=== PATIENT | female | born 1960 | race Caucasian/White ===

== ENCOUNTER 2020-03-07 20:56 | Emergency (ER) | payer BC ==
[~2020-03-07] VITALS: Ht 165.1 cm; Wt 92.5 kg
[2020-03-07 21:28] VITALS: BP_SYST 136; BP_SYST 148; BP_DIAS 78
--- NOTE | 2020-03-07 21:58 | ER.PDOC ---
General Chief Complaint: Lower Back Pain or Injury Stated Complaint: POSS APPENDICITIS Time seen by MD: 22:27 Source: patient Exam Limitations: no limitations History of Present Illness Initial Comments Right lower abdominal pain for 4 days. Pain is 5/10, sharp without nausea or vomiting. CT abdomen/pelvis was done by her PCP today which is equivocal for a ppendicitis, patient was told to come to the ED. Severity/Quality: moderate Radiation: back Associated Symptoms: denies symptoms Exacerbated by: nothing Relieved By: nothing Allergies: Coded Allergies: No Known Drug Allergies (Unverified Allergy, Unknown, 11/28/18) Home Meds Reported Medications Gabapentin (GABAPENTIN) 300 Mg Capsule, 1 CAP PO HS, #90 CAP 5 Refills 11/28/18 Gabapentin (GABAPENTIN) 100 Mg Capsule, 1 CAP PO HS, #90 CAP 2 Refills 11/28/18 Olmesartan/Hydrochlorothiazide (BENICAR HCT 20-12.5 MG TABLET) 1 Each Tablet, 1 TAB PO DAILY, #30 TAB 5 Refills 11/28/18 Dulaglutide (Trulicity) 0.75 Mg/0.5 Ml Pen.injctr, 0.75 MG SQ Q7D 11/28/18 Vital Signs First Vital Signs Date Time Temp Pulse Resp B/P (MAP) Pulse Ox O2 Delivery O2 Flow Rate FiO2 03/07/20 21:28 97.8 99 16 98 03/07/20 21:28 148/78 (101) Room Air Last Vital Signs Date Time Temp Pulse Resp B/P (MAP) Pulse Ox O2 Delivery O2 Flow Rate FiO2 03/07/20 21:28 97.8 99 16 148/78 (101) 98 Room Air Past Medical History Medical History: diabetes, hypertension Surgical History: back, knee Social History Alcohol Use: none Drug Use: none Constitutional: no symptoms reported Respiratory: no symptoms reported Cardiovascular: no symptoms reported Gastrointestinal: see HPI Genitourinary: no symptoms reported Musculoskeletal: no symptoms reported Skin: no symptoms reported All Other Systems: Reviewed and Negative Physical Exam General Appearance: No Apparent Distress, WD/WN Neck: Non-Tender, Full Range of Motion, Supple, Normal Inspection Respiratory: chest non-tender, lungs clear, normal breath sounds, no respiratory distress, no accessory muscle use Cardiovascular: Normal Peripheral Pulses, Regular Rate, Rhythm, No Edema, No Gallop, No JVD, No Murmur Gastrointestinal: Normal Bowel Sounds, No Organomegaly, No Pulsatile Mass, Tenderness (RLQ), McBurneys point tender Back: Normal Inspection, No CVA Tenderness, No Vertebral Tenderness Extremities: Normal Range of Motion, Non-Tender, Normal Inspection, No Pedal Edema, No Calf Tenderness, Normal Capillary Refill, Pelvis Stable Neurologic/Psychiatric: order builder loader II-XII NML as Tested, No Motor/Sensory Deficits, Alert, Normal Mood/Affect, Oriented x 3 Skin: Normal Color, Warm/Dry Lymphatic: No Adenopathy Results/Orders Results/Orders Orders - DANYELL GOYAL MD Cbc With Auto Diff (03/07/20 21:56) Comprehensive Metabolic Panel (03/07/20 21:56) PT (03/07/20 21:56) Partial Thromboplastin Time. (03/07/20 21:56) Ekg-Routine (03/07/20 21:56) Piperacillin Sodium/Tazobactam (Zosyn 3. (03/07/20 21:56) Blood Culture (03/07/20 21:58) 0.9 % Sodium Chloride (Ns 100ml) (03/07/20 22:07) Vital Signs Date Time Temp Pulse Resp B/P (MAP) Pulse Ox O2 Delivery O2 Flow Rate FiO2 03/07/20 21:28 97.8 99 16 148/78 (101) 98 Room Air 03/07/20 21:28 97.8 99 16 03/07/20 21:28 97.8 99 16 98 Administered Medications Medications (Trade) Dose Ordered Sig/Stas Route PRN Reason Start Time Stop Time Status Last Admin Dose Admin Piperacillin Sod/ Tazobactam Sod 3.375 gm/Sodium Chloride 100 ml @ 100 mls/hr STAT STAT IV 03/07/20 21:56 03/07/20 22:55 UNV 03/07/20 22:20 100 MLS/HR Progress Progress CT abdomen/pelvis: No renal or ureteral stone or obstructive uropathy. 2. Equivocal findings for acute appendicitis. Clinical correlation is recommended. 3. Colonic diverticulosis without acute diverticulitis. 4. Diffuse pancreatic fatty replacement. Dr. Nunes is out of town so patient transferred to [facility]. Her is taking her to [facility]. Departure Time of Disposition: 22:30 Disposition: 02 XFER SHT-TRM HOSP Impression: Primary Impression: Appendicitis Condition: Stable Referrals: MICHEAL RIOS MD (PCP) PRIMARY CARE PROVIDER Comments Transfer to [facility] for Dr. Mcgee the Surgeon application integration specialist as a direct admit. Duration or Time Spent with Pa: 30 min Problem Qualifiers Primary Impression: Appendicitis Appendicitis type: acute appendicitis Acute appendicitis type: unspecified acute appendicitis type Qualified Codes: K35.80 - Unspecified acute appendicitis JAY JAY,DANYELL Brown MD Mar 07, 2020 21:58
[2020-03-07] MEDS ORDERED: NS 100ML 100 ML IV ONE (22:07)
[2020-03-07] MEDS: ZOSYN 3.375 GM 3.375 GM in NS 100ML 100 ML IV STA (22:20)
[2020-03-07 22:23] LABS: BASOPHIL % 0.6 % (0.0-0.2); EOSINOPHIL # 0.1 10^3/uL (0.0-0.2); EOSINOPHIL % 1.9 % (0.0-5.0); LYMPHOCYTES # 1.57 10^3/uL1 (1.0-4.8); LYMPHOCYTES % 23.5 % (24.0-44.0); MEAN CORP HGB 29.8 pg (26-34); MONOCYTES # 0.6 10^3/uL (0.3-0.8); MONOCYTES % 8.8 % (5.0-12.0); NEUTROPHIL # 4.4 10^3/uL (1.8-7.7); NEUTROPHILS % 65.1 % (41.0-85.0); PLATELET COUNT 356 10^3/uL (150-400); RED CELL DISTRIBUTION WIDTH 13.1 % (11.5-14.5)
[2020-03-07 22:31] VITALS: BP 143/75
--- NOTE | 2020-03-07 22:35 | NUR ---
TRANSFER PATIENT AMBULATED WITH SPOUSE FROM ED, WILL BE GOING POV. PATIENT COA X4, VITALS STABLE UPON DISCHARGE
--- NOTE | 2020-03-07 22:40 | NUR ---
REPORT TO [facility] REPORT GIVEN TO ALO SINGH
[2020-03-07 22:41] LABS: CALCIUM 9.1 mg/dL (8.4-10.5); CARBON DIOXIDE 26.2 mmol/L (20.0-32)
== END 2020-03-07 22:35 | disposition short-term general hospital (02) ==
LOC: ER 20:56
DX: K35.80 Unspecified acute appendicitis (principal); E11.9 Type 2 diabetes mellitus without complications; I10 Essential (primary) hypertension; Z79.899 Other long term (current) drug therapy
CPT/HCPCS: 36415; 80053; 85025; 85610; 85730; 87040 ×2; 93005; 96374; 99285; J2543; J7050 ×2

== ENCOUNTER → 2020-03-07 | Outpatient (CLI) | payer BC ==
[~2020-03-07] MED LIST: DULA0.75 SQ; GABA100C7 PO; GABA300C10 PO; OLME1TAB21 PO
--- NOTE | 2020-03-07 12:49 | DIREP ---
PROCEDURE:CT ABD/PELVIS WITHOUT CONTRAST TECHNIQUE:No oral contrast was given. Axial cuts were obtained through the abdomen and pelvis without IV contrast. The images were viewed at lung and soft tissue settings. Sagittal and coronal reconstructions are provided. COMPARISON:US, US ABDOMEN LIMITED(SINGLE ORGAN-QUAD), 11/07/2018, 08:48 AM. INDICATIONS:DYSURIA, CALCULUS OF KIDNEY, RLQ PAIN FINDINGS: LOWER CHEST:No infiltrate or pleural effusion. LIVER:Normal. BILIARY:Cholecystectomy. No biliary duct dilatation. PANCREAS:Diffuse fatty replacement. SPLEEN:Normal. URINARY TRACT:No renal or ureteral stone, obstruction or perinephric inflammation. Minimally distended urinary bladder. ADRENALS:Normal. AORTA/VASCULAR:Aortoiliac calcification without dilatation. RETROPERITONEUM:Normal. BOWEL/MESENTERY:Mildly dilated fluid-filled appendix, 0.9 cm without appendicoliths or periappendiceal inflammatory stranding. Distal colonic diverticula. No bowel obstruction, inflammatory stranding, free fluid or air. ABDOMINAL WALL:Normal. PELVIS:Normal. BONES:L3-S1 posterior fusion. OTHER:Normal. CONCLUSION: 1. No renal or ureteral stone or obstructive uropathy. 2. Equivocal findings for acute appendicitis. Clinical correlation is recommended. 3. Colonic diverticulosis without acute diverticulitis. 4. Diffuse pancreatic fatty replacement. Dictated by: Sabrina Aldana MD on 03/07/2020 at 12:42 PM
== END | disposition home or self-care (01) ==
LOC: RAD 10:21
PROVIDERS: ATTEND Internal Medicine
DX: N20.2 Calculus of kidney with calculus of ureter (principal); R30.0 Dysuria; R10.31 Right lower quadrant pain
CPT/HCPCS: 74176

== ENCOUNTER 2020-06-03 09:15 | Emergency (ER) | payer BC ==
[~2020-06-03] VITALS: Ht 165.1 cm; Wt 90.7 kg
[2020-06-03] MEDS ORDERED: NS 1000ML 1,000 ML ONE (09:19)
--- NOTE | 2020-06-03 09:20 | ER.PDOC ---
General Chief Complaint: Requesting Medical Care Stated Complaint: NAUSEA, PAIN Time seen by MD: 09:13 Source: patient, EMS Exam Limitations: no limitations History of Present Illness Initial Comments Patient reports being diagnosed COVID19+ 05/26. She has had persistent diarrhea since that time, but has taken no OTC medications for relief. She continues to eat whatever is at home. She also c/o dyspnea on exertion. Her is at [facility] on a ventilator for COVID19 pneumonia. She has been using [facility] at [facility] at 3-4 L. She states without it, her saturations drop to 79% with any exertion. Severity/Quality: moderate Associated Symptoms (diarrhea): copious Allergies: Coded Allergies: No Known Drug Allergies (Verified Allergy, Unknown, 06/03/20) Home Meds Reported Medications Gabapentin (NEURONTIN) 300 Mg Capsule, 600 MG PO BID, CAPSULE 06/03/20 Olmesartan/Hydrochlorothiazide (BENICAR HCT 20-12.5 MG TABLET) 1 Each Tablet, 1 TAB PO DAILY, #30 TAB 5 Refills 11/28/18 Dulaglutide (Trulicity) 0.75 Mg/0.5 Ml Pen.injctr, 0.75 MG SQ Q7D 11/28/18 Discontinued Reported Medications Gabapentin (GABAPENTIN) 300 Mg Capsule, 1 CAP PO HS, #90 CAP 5 Refills 11/28/18 Gabapentin (GABAPENTIN) 100 Mg Capsule, 1 CAP PO HS, #90 CAP 2 Refills 11/28/18 Vital Signs First Vital Signs Date Time Temp Pulse Resp B/P (MAP) Pulse Ox O2 Delivery O2 Flow Rate FiO2 06/03/20 09:31 99.0 78 22 141/71 (94) 93 Nasal Canula 4.00 Last Vital Signs Date Time Temp Pulse Resp B/P (MAP) Pulse Ox O2 Delivery O2 Flow Rate FiO2 06/03/20 13:17 78 18 122/71 (88) 96 Nasal Canula 4.00 06/03/20 09:36 99.0 Past Medical History Medical History: diabetes, hypertension Surgical History: appendectomy, cholecystectomy LMP (females 10-50): postmenopause Family History Significant Family History: no pertinent family hx Social History Smoking: non-smoker Alcohol Use: none Drug Use: none Constitutional: malaise EENTM: no symptoms reported Respiratory: shortness of breath, SOB with exertion Cardiovascular: no symptoms reported Gastrointestinal: diarrhea Genitourinary: no symptoms reported Musculoskeletal: no symptoms reported Skin: no symptoms reported Psychiatric/Neurological: no symptoms reported Endocrine: no symptoms reported All Other Systems: Reviewed and Negative Physical Exam General Appearance: No Apparent Distress, WD/WN HEENT: PERRL/EOMI Neck: Non-Tender, Full Range of Motion, Supple Respiratory: lungs clear, normal breath sounds, no respiratory distress, no accessory muscle use Cardiovascular: Regular Rate, Rhythm, No Murmur Gastrointestinal: Non Tender, Hypoactive bowel sounds, Soft Extremities: Non-Tender, Normal Inspection, No Pedal Edema, No Calf Tenderness Neurologic/Psychiatric: Alert, Normal Mood/Affect, Oriented x 3 Skin: Normal Color, Warm/Dry Results/Orders Results/Orders Orders - PAGE AVALOS DO 0.9 % Sodium Chloride (Ns 1000ml) (06/03/20 09:19) Cbc With Auto Diff (06/03/20 09:22) Comprehensive Metabolic Panel (06/03/20 09:22) Amylase (06/03/20 09:22) Lipase (06/03/20 09:22) Clostridium Difficile Panel (06/03/20 09:22) Stool Culture(Ml) (06/03/20 09:22) Saline Lock (06/03/20 09:22) 0.9 % Sodium Chloride (Ns 1000ml) (06/03/20 09:22) Diphenoxylate Hcl/Atropine (Lomotil) (06/03/20 09:22) Dexamethasone Sodium Phosphate (Decadron (06/03/20 09:22) Lactic Acid(Ml) (06/03/20 09:22) Blood Culture (06/03/20 09:22) D-Dimer (06/03/20 09:22) Enoxaparin Sodium (Lovenox) (06/03/20 09:50) Cta Chest (06/03/20 09:50) Enoxaparin Sodium (Lovenox) (06/03/20 09:53) Arterial Blood Gas (06/03/20 09:40) Ceftriaxone Sodium (Rocephin) (06/03/20 12:39) 0.9 % Sodium Chloride (Ns 100ml) (06/03/20 12:45) Ceftriaxone Sodium (Rocephin) (06/03/20 12:46) Vital Signs Date Time Temp Pulse Resp B/P (MAP) Pulse Ox O2 Delivery O2 Flow Rate FiO2 06/03/20 13:17 78 18 122/71 (88) 96 Nasal Canula 4.00 06/03/20 12:23 82 20 141/54 (83) 95 Nasal Canula 4.00 06/03/20 10:23 79 20 134/69 (90) 98 Nasal Canula 4.00 06/03/20 09:36 99.0 80 22 97 06/03/20 09:36 99.0 80 22 06/03/20 09:31 99.0 78 22 141/71 (94) 93 Nasal Canula 4.00 Administered Medications Medications (Trade) Dose Ordered Sig/Stas Route PRN Reason Start Time Stop Time Status Last Admin Dose Admin Ceftriaxone Sodium 1000 mg/ Sodium Chloride 100 ml @ 100 mls/hr STAT STAT IV 06/03/20 12:39 06/03/20 13:38 DC 06/03/20 12:50 100 MLS/HR Diphenoxylate HCl/ Atropine (Lomotil) 2 each STAT STAT PO 06/03/20 09:22 06/03/20 09:23 UNV 06/03/20 09:30 2 EACH Enoxaparin Sodium (Lovenox) 90 mg STAT STAT SQ 06/03/20 09:50 06/03/20 09:53 DC 06/03/20 10:01 90 MG Sodium Chloride 1,000 ml @ 1,200 mls/hr Q50M STAT IV 06/03/20 09:22 06/03/20 10:11 UNV 06/03/20 09:30 1,200 MLS/HR Laboratory Tests Test 06/03/20 09:22 06/03/20 09:25 Blood Gas Sample Site RB Blood pH 7.435 (7.350-7.450) Blood Gas PCO2 39.7 mmHg (35.0-45.0) Blood Gas PO2 94.4 mmHg (80.0-100.0) Blood Gas HCO3 26.1 mmol/L (22.0-26.0) H Blood Gas Base Excess 1.8 mmol/L (-2.0-2.0) Virgil Test N/A Arterial Blood Oxygen Saturation 97.3 % (94.0-97.00) H Deoxyhemoglobin 2.7 % (0.0-5.0) Carboxyhemoglobin 0.2 % (0.0-3.9) Methemoglobin 0.3 % (0.00-5.0) Total Hemoglobin 14.2 % (12.0-17.8) Total Oxygen Concentration 19.4 % (13.5-17.5) H Blood Gas Temperature 37 Oxygen Delivery Method 6 L/M FiO2 42 % (20-101) Total Carbon Dioxide 27.3 mmol/L (23-27) H White Blood Count 6.2 10^3/uL (4.5-11.0) Red Blood Count 5.08 10^6/uL (4.00-5.20) Hemoglobin 15.1 g/dL (12.0-15.0) H Hematocrit 44.0 % (36.0-46.0) Mean Corpuscular Volume 86.6 fL (78-100) Mean Corpuscular Hemoglobin 29.7 pg (26-34) Mean Corpuscular Hemoglobin Concent 34.3 g/dL (33-36.5) Red Cell Distribution Width 13.4 % (11.5-14.5) Platelet Count 275 10^3/uL (150-400) Mean Platelet Volume 8.9 fL (7.8-11.0) Neutrophils (%) (Auto) 80.5 % (41.0-85.0) Lymphocytes (%) (Auto) 8.6 % (24.0-44.0) L Monocytes (%) (Auto) 8.9 % (5.0-12.0) Neutrophils # (Auto) 5.0 10^3/uL (1.8-7.7) Lymphocytes # (Auto) 0.53 10^3/uL1 (1.0-4.8) L Monocytes # (Auto) 0.6 10^3/uL (0.3-0.8) Absolute Immature Granulocyte (auto 0.11 10^3 u/L (0-2) Absolute Eosinophils (auto) 0.0 10^3/uL (0.0-0.2) Immature Granulocytes % 1.80 % (0.00-0.50) H Eosinophils % 0.0 % (0.0-5.0) Basophils % 0.2 % (0.0-0.2) Basophils # 0.0 10^3/uL (0.0-0.1) D-Dimer 0.68 mg/L (0.19-0.49) *H Sodium Level 140 mmol/L (132-145) Potassium Level 3.6 mmol/L (3.6-5.2) Chloride Level 100.0 mmol/L (96-109) Carbon Dioxide Level 27.6 mmol/L (20.0-32) Anion Gap 16.0 Blood Urea Nitrogen 20 mg/dL (7-18) H Creatinine 1.08 mg/dL (0.59-1.40) Estimated GFR () 62.8 (>/=60) Est GFR (CKD-EPI)(Non-Afr [place]) 51.9 (>/=60) BUN/Creatinine Ratio 18.0 Glucose Level 152 mg/dL (70-110) H Lactic Acid Level 1.7 mmol/L (0.5-1.9) Calcium Level 9.6 mg/dL (8.4-10.5) Total Bilirubin 0.5 mg/dL (0.2-1.0) Aspartate Amino Transferase (AST) 70 U/L (0-35) H Alanine Aminotransferase (ALT) 70 U/L (12-78) Alkaline Phosphatase 79 U/L (50-136) Total Protein 8.0 g/dL (6.4-8.2) Albumin 3.3 g/dL (3.4-5.0) L Globulin 4.7 Albumin/Globulin Ratio 0.702 Amylase Level 61 U/L (25-115) Lipase 182 U/L (114-286) Progress Progress ABGs WNL. Chemistry and CBC WNL. Lactic acid WNL. Oxygen saturation here will not maintain >90% at rest without NC oxygen at 4L. EKG/XRAY/CT/US CT Comments: diffuse bilateral pneumonia c/w COVID19 ER DEPART Departure Time of Disposition: 13:41 Disposition: 01 HOME, SELF-CARE Impression: Primary Impression: 2019 novel coronavirus disease (COVID-19) Additional Impressions: Pneumonia Diarrhea Condition: Improved Patient Instructions: Viral Syndrome Additional Instructions: Continue using oxygen at home: 4-6 liters per nasal canula (the minimum amount required to maintain oxygen saturation >90%). Take antibiotics and steroids as prescribed until all gone. Take Lomotil as prescribed only when needed for diarrhea. Maintain a strictly clear liquid diet for 24 hours (anything you can hold up to a light and see through)--no fruit juice, no caffeine. Gradually advance diet as tolerated after that--bland!! You and your entire household need to sequester at home for 10 days from the onset of symptoms. Return to ER if you experience any difficulty breathing or swallowing, or for any emergent concerns. Alternate Tylenol and Motrin per package instructions every 4 hours as needed for fever or body aches including headache. Follow up with your doctor next week for reevaluation. Duration or Time Spent with Pa: 25 min Problem Qualifiers Additional Impressions: Pneumonia Pneumonia type: due to unspecified organism Laterality: bilateral Lung location: unspecified part of lung Qualified Codes: J18.9 - Pneumonia, unspecified organism Diarrhea Diarrhea type: unspecified type Qualified Codes: R19.7 - Diarrhea, unspecified PAGE AVALOS DO Jun 03, 2020 09:20
[2020-06-03] MEDS ORDERED: LOMOTIL PO STA (09:22)
[2020-06-03] MEDS ORDERED: NS 1000ML 1,000 ML IV STA (09:22)
[2020-06-03] MEDS ORDERED: DECADRON IV STA (09:22)
[2020-06-03] MEDS ORDERED: DECADRON ONE (09:29)
[2020-06-03 09:31] VITALS: BP 141/71
[2020-06-03 09:34] LABS: BASOPHIL % 0.2 % (0.0-0.2); LYMPHOCYTES # 0.53 10^3/uL1 (1.0-4.8); LYMPHOCYTES % 8.6 % (24.0-44.0); MEAN CORP HGB 29.7 pg (26-34); MONOCYTES # 0.6 10^3/uL (0.3-0.8); MONOCYTES % 8.9 % (5.0-12.0); NEUTROPHILS % 80.5 % (41.0-85.0); PLATELET COUNT 275 10^3/uL (150-400); RED CELL DISTRIBUTION WIDTH 13.4 % (11.5-14.5)
[2020-06-03 09:36] VITALS: BP 141/71
[2020-06-03 09:49] LABS: CALCIUM 9.6 mg/dL (8.4-10.5); CARBON DIOXIDE 27.6 mmol/L (20.0-32)
[2020-06-03] MEDS ORDERED: GABA300C PO (09:50)
[2020-06-03] MEDS ORDERED: LOVENOX SQ STA (09:50)
--- NOTE | 2020-06-03 09:51 | NUR ---
D-DIMER 0.68. REPORTED TO DR. CAMARA.
[2020-06-03] MEDS ORDERED: LOVENOX SQ ONE (09:53)
[2020-06-03 10:23] VITALS: BP 134/69
--- NOTE | 2020-06-03 11:38 | DIREP ---
PROCEDURE:CT PULMONARY ANGIOGRAM TECHNIQUE:Following the intravenous administration of contrast material, axial cuts were obtained through the chest. Multiplanar / 3-D reconstructions are provided. Satisfactory pulmonary arterial contrast opacification was achieved. The images were viewed at lung and soft tissue settings. COMPARISON:None. INDICATIONS:elevated ddimer FINDINGS: PULMONARY ARTERIES:Patent. LUNGS:Diffuse bilateral ground-glass alveolar opacities are noted throughout both lungs which is a characteristic appearance of Covid 19 viral pneumonia. CARDIAC:Normal size heart and normal pulmonary vascularity. THYROID:Normal. THORACIC AORTA:Normal. MEDIASTINUM:Normal. PLEURA:Normal. BONES:Mild thoracic spondylosis is noted. OTHER:A very small hiatal hernia is noted. CONCLUSION: 1. No evidence of pulmonary thromboembolism. 2. Diffuse bilateral pneumonia with characteristic appearance of a Covid 19 viral pneumonia. Dictated by: Reinaldo Dumont M.D. on 06/03/2020 at 11:32 AM
[2020-06-03 11:54] LABS: ABG PCO2 39.7 mmHg (35.0-45.0); ABG PH 7.435 (7.350-7.450); BE(B) 1.8 mmol/L (-2.0-2.0); HCO3act 26.1 mmol/L (22.0-26.0); pO2 94.4 mmHg (80.0-100.0)
[2020-06-03 12:23] VITALS: BP 141/54
[2020-06-03] MEDS ORDERED: ROCEPHIN 1,000 MG in NS 100ML 100 ML IV STA (12:39)
[2020-06-03] MEDS ORDERED: NS 100ML 100 ML IV ONE (12:45)
[2020-06-03] MEDS ORDERED: ROCEPHIN ONE (12:46)
[2020-06-03 13:17] VITALS: BP 122/71
--- NOTE | 2020-06-03 13:47 | NUR ---
ALO MCGUIRE CALLED [facility] AT THIS TIME FOR O2 PORTABLE TANK FOR PT TO TAKE HOME. ORDER GIVEN BY MD JAX.
[2020-06-03 14:30] VITALS: BP 128/58
--- NOTE | 2020-06-03 14:42 | NUR ---
pt is waiting for oxygen tank to arrive from [facility]
== END 2020-06-03 15:03 | disposition home or self-care (01) ==
LOC: EDBD 09:15 → ER 09:22
DX: U07.1 COVID-19 (principal); J12.89 Other viral pneumonia; I10 Essential (primary) hypertension; E11.9 Type 2 diabetes mellitus without complications; Z79.01 Long term (current) use of anticoagulants; Z79.899 Other long term (current) drug therapy; Z90.49 Acquired absence of other specified parts of digestive tract
CPT/HCPCS: 36415; 36600; 71275; 80053; 82150; 82803; 83605; 83690; 85025; 85379; 87040 ×2; 96361; 96365; 96372; 96375; 99285; J0696 ×2; J1100; J1650; J7030; J7050 ×2; Q9965; 96374

== ENCOUNTER 2020-06-05 12:10 | Inpatient (IN) | payer BC ==
[~2020-06-05] VITALS: Ht 165.1 cm; Wt 92.3 kg
[~2020-06-05 12:10] MED LIST changes: +GABA300C PO
[2020-06-05] MEDS ORDERED: ROCEPHIN 1,000 MG in NS 100ML 100 ML IV STA (12:28)
[2020-06-05] MEDS ORDERED: DECADRON IV STA (12:28)
[2020-06-05 12:31] VITALS: BP 136/74
[2020-06-05] MEDS ORDERED: ROCEPHIN ONE (12:32)
[2020-06-05] MEDS ORDERED: ATIVAN IV STA (12:33)
--- NOTE | 2020-06-05 12:36 | ER.PDOC ---
General Chief Complaint: Requesting Medical Care Stated Complaint: COVID + Time seen by MD: 12:23 Source: patient, EMS Exam Limitations: no limitations History of Present Illness Initial Comments Patient with known COVID19 returns to ER c/o worsening SOB. We saw this patient 2 days for persistent diarrhea d/t COVID19. She states the diarrhea has resolved, but that she is unable to keep her oxygen saturation above 88% on 5L/NC oxygen at home. Timing/Duration: 1 week, constant, increasing Severity: moderate Activities at Onset: rest Prior Episodes/Possible Cause: illness exposure ( on [facility] at [facility] with COVID[facility]) Modifying Factors: improves with oxygen (but not enough) Associated Symptoms: anxiety, cough Prior symptoms/Treatment: Recenly Seen (here 2 days ago) Allergies: Coded Allergies: No Known Drug Allergies (Verified Allergy, Unknown, 06/03/20) Home Meds Reported Medications Gabapentin (NEURONTIN) 300 Mg Capsule, 600 MG PO BID, CAPSULE 06/03/20 Olmesartan/Hydrochlorothiazide (BENICAR HCT 20-12.5 MG TABLET) 1 Each Tablet, 1 TAB PO DAILY, #30 TAB 5 Refills 11/28/18 Dulaglutide (Trulicity) 0.75 Mg/0.5 Ml Pen.injctr, 0.75 MG SQ Q7D 11/28/18 Discontinued Reported Medications Gabapentin (GABAPENTIN) 300 Mg Capsule, 1 CAP PO HS, #90 CAP 5 Refills 11/28/18 Gabapentin (GABAPENTIN) 100 Mg Capsule, 1 CAP PO HS, #90 CAP 2 Refills 11/28/18 Past Medical History Medical History: diabetes, hypertension Surgical History: appendectomy, back, cholecystectomy, knee, tubal Family History Significant Family History: no pertinent family hx Social History Smoking: non-smoker Alcohol Use: none Drug Use: none Review of Systems Constitutional: denies no symptoms reported, denies see HPI, denies chills, denies diaphoresis, denies fever, denies malaise, denies weakness, denies other EENTM: denies no symptoms reported, denies see HPI, denies eye pain, denies blurred vision, denies tearing, denies double vision, denies ear pain, denies ear discharge, denies nose pain, denies nose congestion, denies throat pain, denies throat swelling, denies mouth pain, denies mouth swelling, denies other Respiratory: cough, shortness of breath Cardiovascular: denies no symptoms reported, denies see HPI, denies chest pain, denies edema, denies palpitations, denies syncope, denies other Gastrointestinal: denies no symptoms reported, denies see HPI, denies abdominal pain, denies constipation, denies diarrhea, denies nausea, denies vomiting, denies other Genitourinary: denies no symptoms reported, denies see HPI, denies discharge, denies dysuria, denies frequency, denies hematuria, denies pain, denies other Musculoskeletal: denies no symptoms reported, denies see HPI, denies back pain, denies gout, denies joint pain, denies joint swelling, denies muscle pain, denies muscle stiffness, denies neck pain, denies other Skin: denies no symptoms reported, denies see HPI, denies change in color, denies change in hair/nails, denies dryness, denies lesions, denies lumps, denies rash, denies other Psychiatric/Neurological: denies no symptoms reported, denies see HPI, denies anxiety, denies depressed, denies emotional problems, denies headache, denies numbness, denies paresthesia, denies pre-existing deficit, denies seizure, denies tingling, denies tremors, denies weakness, denies other All Other Systems: Reviewed and Negative Physical Exam General Appearance: WD/WN, Anxious HEENT: PERRL/EOMI Neck: Non-Tender, Supple Respiratory: normal breath sounds, respiratory distress (tachypnea 30's) Cardiovascular: Regular Rate, Rhythm, No Murmur Gastrointestinal: Normal Bowel Sounds, Non Tender Extremities: Normal Range of Motion, Non-Tender, No Pedal Edema, No Calf Tenderness Neurologic/Psychiatric: Alert, Normal Mood/Affect, Oriented x 3 Skin: Normal Color, Warm/Dry Results/Orders Results/Orders Orders - PAGE AVALOS DO Cbc With Auto Diff (06/05/20 12:28) Comprehensive Metabolic Panel (06/05/20 12:28) Creatine Kinase (06/05/20 12:28) Creatine Kinase Mb (06/05/20 12:28) Probnp B-Type Clerical Associate (06/05/20 12:28) Troponin I (06/05/20 12:28) D-Dimer (123/20 12:28) Arterial Blood Gas (06/05/20 12:28) Blood Culture (06/05/20 12:28) Xr Chest 1v (06/05/20 12:28) PT (06/05/20 12:28) Partial Thromboplastin Time. (06/05/20 12:28) Ekg-Routine (06/05/20 12:28) Saline Lock (06/05/20 12:28) Lactic Acid(Ml) (06/05/20 12:28) Dexamethasone Sodium Phosphate (Decadron (06/05/20 12:28) Ceftriaxone Sodium (Rocephin) (06/05/20 12:28) Lorazepam (Ativan) (06/05/20 12:33) Ceftriaxone Sodium (Rocephin) (06/05/20 12:32) Enoxaparin Sodium (Lovenox) (06/05/20 13:39) Enoxaparin Sodium (Lovenox) (06/05/20 13:42) Enoxaparin Sodium (Lovenox) (06/05/20 13:42) Vital Signs Date Time Temp Pulse Resp B/P (MAP) Pulse Ox O2 Delivery O2 Flow Rate FiO2 06/05/20 14:25 68 24 136/74 (94) 98 Non-Rebreather 10.00 06/05/20 13:41 98.6 69 28 131/65 (87) 96 Non-Rebreather 10.00 06/05/20 12:31 98.6 73 28 136/74 (94) 94 Non-Rebreather 10.00 06/05/20 12:31 98.6 73 28 06/05/20 12:31 98.6 73 28 94 Administered Medications Medications (Trade) Dose Ordered Sig/Stas Route PRN Reason Start Time Stop Time Status Last Admin Dose Admin Ceftriaxone Sodium 1000 mg/ Sodium Chloride 100 ml @ 100 mls/hr STAT STAT IV 06/05/20 12:28 06/05/20 13:27 UNV 06/05/20 12:56 100 MLS/HR Enoxaparin Sodium (Lovenox) 90 mg STAT STAT SQ 06/05/20 13:42 06/05/20 13:44 DC 06/05/20 14:15 90 MG Lorazepam (Ativan) 1 mg STAT STAT IV 12/3/20 12:33 06/05/20 12:34 UNV 06/05/20 12:56 1 MG Laboratory Tests Test 06/05/20 12:40 06/05/20 13:05 White Blood Count 14.1 10^3/uL (4.5-11.0) H Red Blood Count 4.89 10^6/uL (4.00-5.20) Hemoglobin 14.3 g/dL (12.0-15.0) Hematocrit 42.1 % (36.0-46.0) Mean Corpuscular Volume 86.1 fL (78-100) Mean Corpuscular Hemoglobin 29.2 pg (26-34) Mean Corpuscular Hemoglobin Concent 34.0 g/dL (33-36.5) Red Cell Distribution Width 13.3 % (11.5-14.5) Platelet Count 363 10^3/uL (150-400) Mean Platelet Volume 9.3 fL (7.8-11.0) Neutrophils (%) (Auto) 86.2 % (41.0-85.0) H Lymphocytes (%) (Auto) 3.7 % (24.0-44.0) *L Monocytes (%) (Auto) 5.6 % (5.0-12.0) Neutrophils # (Auto) 12.2 10^3/uL (1.8-7.7) H Lymphocytes # (Auto) 0.52 10^3/uL1 (1.0-4.8) L Monocytes # (Auto) 0.8 10^3/uL (0.3-0.8) Absolute Immature Granulocyte (auto 0.62 10^3 u/L (0-2) Absolute Eosinophils (auto) 0.0 10^3/uL (0.0-0.2) Immature Granulocytes % 4.40 % (0.00-0.50) H Eosinophils % 0.0 % (0.0-5.0) Basophils % 0.1 % (0.0-0.2) Basophils # 0.0 10^3/uL (0.0-0.1) Prothrombin Time 10.4 SEC (9.3-11.3) Prothrombin Time INR (Non-Therap) 1.0 Activated Partial Thromboplast Time 22.5 SEC (24.67-30.72) D-Dimer 1.12 mg/L (0.19-0.49) *H Sodium Level 140 mmol/L (132-145) Potassium Level 3.7 mmol/L (3.6-5.2) Chloride Level 102.0 mmol/L (96-109) Carbon Dioxide Level 28.1 mmol/L (20.0-32) Anion Gap 13.6 Blood Urea Nitrogen 33 mg/dL (7-18) H Creatinine 1.02 mg/dL (0.59-1.40) Estimated GFR () 67.1 (>/=60) Est GFR (CKD-EPI)(Non-Afr Finnish) 55.5 (>/=60) BUN/Creatinine Ratio 32.0 Glucose Level 180 mg/dL (70-110) H Lactic Acid Level 2.0 mmol/L (0.5-1.9) H Calcium Level 9.4 mg/dL (8.4-10.5) Total Bilirubin 0.5 mg/dL (0.2-1.0) Aspartate Amino Transferase (AST) 63 U/L (0-35) H Alanine Aminotransferase (ALT) 59 U/L (12-78) Alkaline Phosphatase 66 U/L (50-136) Total Creatine Kinase 24 U/L (26-192) L Creatine Kinase MB < 0.5 ng/mL (0.5-3.6) L Troponin I < 0.02 ng/mL (0.00-0.05) Pro-B-Type Natriuretic Peptide 1958 pg/mL (0-125) H Total Protein 7.4 g/dL (6.4-8.2) Albumin 2.9 g/dL (3.4-5.0) L Globulin 4.5 Albumin/Globulin Ratio 0.644 Blood Gas Sample Site LEFT RADIAL ARTERY Blood pH 7.468 (7.350-7.450) Blood Gas PCO2 36.4 mmHg (35.0-45.0) Blood Gas PO2 64.8 mmHg (80.0-100.0) L Blood Gas HCO3 25.8 mmol/L (22.0-26.0) Blood Gas Base Excess 2.3 mmol/L (-2.0-2.0) H Virgil Test POSITIVE Arterial Blood Oxygen Saturation 92.9 % (94.0-97.00) L Deoxyhemoglobin 7.0 % (0.0-5.0) H Carboxyhemoglobin 0.8 % (0.0-3.9) Methemoglobin 0.4 % (0.00-5.0) Total Hemoglobin 15.1 % (12.0-17.8) Total Oxygen Concentration 19.5 % (13.5-17.5) H Blood Gas Temperature 37.0 Oxygen Delivery Method NON-REBREATHER MASK FiO2 100 % (20-101) Total Carbon Dioxide 26.9 mmol/L (23-27) Progress Progress WBC 14.7; paO2 65; ddimer elevated; patient requiring NRB oxygen in ED to maintain saturations > 90% EKG/XRAY/CT/US EKG Comments: NSR, VR 81, Twave inversion limb lead III only Consult/PCP Time Consult/PCP Called: 14:27 Consult/PCP: Dr. Stanley Reason/Comments: texted admit information #2 Time Consult/PCP Called: 14:35 Consult/PCP: Dr. Oswaldo Penn will admit ER DEPART Departure Time of Disposition: 14:36 Disposition: 09 ADMITTED INPATIENT Impression: Primary Impression: Hypoxia Additional Impressions: Respiratory distress 2019 novel coronavirus disease (COVID-19) Pneumonia Condition: Improved Referrals: MICHEAL RIOS MD (PCP) PRIMARY CARE PROVIDER Duration or Time Spent with Pa: 15 min Problem Qualifiers Additional Impressions: Pneumonia Pneumonia type: due to unspecified organism Laterality: bilateral Lung location: unspecified part of lung Qualified Codes: J18.9 - Pneumonia, unspecified organism PAGE AVALOS DO Jun 05, 2020 12:35
--- NOTE | 2020-06-05 12:37 | NUR ---
ARRIVAL PATIENT ARRIVED TO ED3 VIA GURNEY BY [facility], C/O OF WORSENING OF SHORTNESS OF BREATH SINCE DIAGNOSIS OF COVID ON Jun, COVID TEST WAS DONE IN THE ED HERE AT [facility] AND PATIENT WAS SENT HOME, PATIENT FELT WORSE TODAY AND CALLED HER PCP AND WAS TOLD TO COME TO THE ED FOR EVAL, STOCK SHIPPER APPLIED AND VITAL SIGNS OBTAINED.
[2020-06-05 12:59] LABS: BASOPHIL % 0.1 % (0.0-0.2); LYMPHOCYTES # 0.52 10^3/uL1 (1.0-4.8); LYMPHOCYTES % 3.7 % (24.0-44.0); MEAN CORP HGB 29.2 pg (26-34); MONOCYTES # 0.8 10^3/uL (0.3-0.8); MONOCYTES % 5.6 % (5.0-12.0); NEUTROPHIL # 12.2 10^3/uL (1.8-7.7); NEUTROPHILS % 86.2 % (41.0-85.0); PLATELET COUNT 363 10^3/uL (150-400); RED CELL DISTRIBUTION WIDTH 13.3 % (11.5-14.5)
--- NOTE | 2020-06-05 13:09 | PCM.EKG ---
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
[2020-06-05 13:14] LABS: ABG PCO2 36.4 mmHg (35.0-45.0); ABG PH 7.468 (7.350-7.450); BE(B) 2.3 mmol/L (-2.0-2.0); HCO3act 25.8 mmol/L (22.0-26.0); pO2 64.8 mmHg (80.0-100.0)
[2020-06-05 13:38] LABS: ALANINE AMINOTRANSFERASE(ML) 59 U/L (12-78); ALKALINE PHOSPHATASE 66 U/L (50-136); ASPARTATE AMINO TRANSFERASE 63 U/L (0-35); CALCIUM 9.4 mg/dL (8.4-10.5); CARBON DIOXIDE 28.1 mmol/L (20.0-32); GLUCOSE 180 mg/dL (70-110)
[2020-06-05 13:41] VITALS: BP 131/65
[2020-06-05] MEDS ORDERED: LOVENOX SQ ONE (13:42)
[2020-06-05] MEDS ORDERED: LOVENOX SQ STA (13:42)
[2020-06-05] MEDS: LOVENOX SQ STA ×2 (13:47→14:16)
--- NOTE | 2020-06-05 13:53 | DIREP ---
PROCEDURE:CHEST 1 VIEW COMPARISON:None. INDICATIONS:dyspnea FINDINGS: LUNGS/PLEURA:Multifocal infiltrates and ground-glass opacities are scattered throughout both lungs. VASCULATURE:Normal. Unremarkable pulmonary vasculature. CARDIAC:Normal. No cardiac silhouette abnormality or cardiomegaly. MEDIASTINUM:Normal. No visible mass or adenopathy. BONES:Normal. No fracture or visible bony lesion. OTHER:Negative. CONCLUSION:There are multifocal infiltrates and ground-glass opacities scattered throughout both lungs. The findings are commonly reported imaging features of COVID-19 pneumonia. Dictated by: Timothy Avalos M.D. on 06/05/2020 at 01:50 PM
--- NOTE | 2020-06-05 14:24 | NUR ---
KVNG AVALOS ATTEMPTING TO CONTACT DOCTOR CALDERON IN REGARD TO ADMISSION.
[2020-06-05 14:25] VITALS: BP 136/74
--- NOTE | 2020-06-05 14:36 | NUR ---
[facility] DOCTOR AVALOS SPOKE WITH DOCTOR HARRINGTON, WILL ADMIT TO [facility].
[2020-06-05] MEDS ORDERED: MORPHINE SULFATE IV PRN (15:30)
[2020-06-05] MEDS ORDERED: DEXTROSE 50%-WATER SYRINGE IV PRN (15:30)
[2020-06-05] MEDS ORDERED: REMDESIVIR (EUA) 200 MG in NS 100ML 100 ML IV STA (15:37)
[2020-06-05] MEDS ORDERED: ZINC SULFATE PO STA (15:37)
[2020-06-05] MEDS ORDERED: ZITHROMAX 500 MG in NS 250ML 250 ML IV SCH (16:00)
[2020-06-05] MEDS ORDERED: LASIX IV SCH (16:00)
--- NOTE | 2020-06-05 16:16 | PCM.HP ---
HISTORY & PHYSICAL HISTORY & PHYSICAL DATE OF ADMISSION: 06/05/2020 CHIEF COMPLAINT: Cough and SOB HISTORY OF PRESENT ILLNESS:Patient is a 60 years old lady that presented to the emergency room on account of worsening shortness of breath. Patient has been having symptoms for about 2 weeks. has history of COVID-19 infection and currently being treated at [facility]. She previously tested positive for COVID-19 and was also seen in this hospital on Tuesday. Patient was sent home on 5 L of oxygen last Tuesday. She was unable to maintain her oxygen saturation above 88% while on 5 L of oxygen by nasal cannula. She continued to have worsening shortness of breath and nonproductive cough. She initially had diarrhea that has improved at this time. Patient has also noted pleuritic chest pain but denies having fever, chills, nausea and vomiting. She also denies history of dysuria urinary frequency.At presentation to the emergency room, patient was noted to be hypoxic. Chest x-ray is suggestive of COVID-19 infection. Patient got breathing treatment and started on IV Rocephin in the ER. She is being admitted for further evaluation and treatment. ALLERGIES:No known drug allergies CURRENT MEDICATIONS: Trulicity Gabapentin PAST MEDICAL HISTORY: DM HTN SOCIAL HISTORY: Denies hx of smoking, ETOH abuse and illicit drug use FAMILY HISTORY: Not contributory REVIEW OF SYSTEMS: As in HPI, others are negative PHYSICAL EXAMINATION: GENERAL: alert and oriented, Obvious dyspnea VITAL SIGNS: see chart. reviewed HEENT: PERRLA NECK: supple. No JVD LUNGS: coarse to auscultation HEART: RRR ABDOMEN: soft, obese, non-tender, BS++ EXTREMITIES: no edema NEUROLOGIC: alert and oriented, No focal motor deficit LABORATORY DATA: reviewed, see chat ASSESSMENT/PLANS Acute hypoxic respiratory failure -supplemental oxygen -mucinex -combivent q6h -dexamethasone 6mg q12h COVID 19 pneumonia -convalescent plasma -remdesivir -zinc -vit c -emperic zithromax and rocephin Elevated BNP -concerning for chf -Echo -Iv lasix 20mg x1 HTN -continue to monitor BP -resume home medication DM -accuchecks -a1c -insulin sliding scale -lantus 10units qhs DVT proph: lovenox GI: proph: famotidine Further care per clinical course. Full code GURPREET HARRINTGON MD Jun 05, 2020 16:16
[2020-06-05 16:35] VITALS: BP 144/64
[2020-06-05] MEDS ORDERED: ZINC SULFATE ONE (17:08)
[2020-06-05] MEDS: HUMALOG SQ SCH ×2 (17:30→20:39)
[2020-06-05 18:34] LABS: LYMPHOCYTE 4 % (25-36); MONOCYTE 5 % (3-9); SEGMENTED NEUTROPHILS 89 % (31-76)
[2020-06-05 18:35] LABS: DIFFERENTIAL COMMENT NORMAL
[2020-06-05] MEDS ORDERED: DECADRON IV SCH (19:00)
[2020-06-05 19:58] VITALS: BP 134/60
[2020-06-05] MEDS: LANTUS SQ SCH (20:39)
[2020-06-05] MEDS ORDERED: NS 250ML 250 ML IV ONE (20:50)
[2020-06-05] MEDS: ZITHROMAX 500 MG in NS 250ML 250 ML IV SCH (21:21)
[2020-06-05] MEDS: LOVENOX SQ SCH (21:21)
[2020-06-05] MEDS: NEURONTIN PO SCH (21:22)
[2020-06-05] MEDS: DEXAMETHASONE 10 MG/ML VIAL IV SCH (21:22)
[2020-06-05] MEDS: MUCINEX PO SCH (21:22)
[2020-06-05] MEDS: PEPCID PO SCH (21:22)
[2020-06-05] MEDS: VITAMIN C PO SCH (21:22)
[2020-06-06] VITALS (9 sets, daily range): BP systolic 121–149; BP diastolic 54–71
[2020-06-06] MEDS ORDERED: NS 500ML 500 ML IV ONE (00:24)
--- NOTE | 2020-06-06 03:20 | NUR ---
Convalescent plasma infused without difficulty or reactions. Pt. tolerated well. Will continue to monitor.
[2020-06-06 05:31] LABS: BASOPHIL % 0.1 % (0.0-0.2); LYMPHOCYTES # 0.56 10^3/uL1 (1.0-4.8); LYMPHOCYTES % 6.9 % (24.0-44.0); MEAN CORP HGB 29.6 pg (26-34); MONOCYTES # 0.5 10^3/uL (0.3-0.8); MONOCYTES % 5.8 % (5.0-12.0); NEUTROPHIL # 6.6 10^3/uL (1.8-7.7); NEUTROPHILS % 80.3 % (41.0-85.0); PLATELET COUNT 351 10^3/uL (150-400); RED CELL DISTRIBUTION WIDTH 13.1 % (11.5-14.5)
[2020-06-06 06:17] LABS: CARBON DIOXIDE 28.4 mmol/L (20.0-32)
[2020-06-06] MEDS: HUMALOG SQ SCH ×4 (07:30→20:45)
[2020-06-06] MEDS: MUCINEX PO SCH ×2 (08:36→20:50)
[2020-06-06] MEDS: PEPCID PO SCH ×2 (08:36→20:51)
[2020-06-06] MEDS: NEURONTIN PO SCH ×2 (08:36→20:51)
[2020-06-06] MEDS: DEXAMETHASONE 10 MG/ML VIAL IV SCH ×2 (08:36→20:50)
[2020-06-06] MEDS: VITAMIN C PO SCH ×2 (08:36→20:51)
[2020-06-06] MEDS: LOVENOX SQ SCH ×2 (08:37→20:51)
[2020-06-06] MEDS: HYDROCHLOROTHIAZIDE PO SCH (08:40)
[2020-06-06] MEDS: COZAAR PO SCH (08:40)
--- NOTE | 2020-06-06 11:27 | PCM.ECHO ---
APPROVED REPORT EXAM: Comprehensive 2D, Doppler, and color-flow Echocardiogram. Patient Location: IN-PATIENT Indications Congestive Heart Failure R/O CHF 2D Dimensions LVOT Diameter 2.02 (1.8-2.4cm) LVEF(%) 59.50 (>50%) M-Mode Dimensions RVDd 0.65 (2.1-3.2cm) Left Atrium(MM) 3.80 (2.5-4.0cm) IVSd 0.95 (0.7-1.1cm) Aortic Root 2.30 (2.2-3.7cm) LVDd 5.70 (4.0-5.6cm) Aortic Cusp Exc 1.65 (1.5-2.0cm) PWd 0.75 (0.7-1.1cm) MV EPSS 1.44 (<0.5cm) IVSs 1.60 cm FS (%) 31.25 % LVDs 3.90 (2.0-3.8cm) ESV(Teich) 67.55 ml PWs 1.30 cm LVEF(%) 58.37 (>50%) Volumes Biplane 2D LV Volumes Biplane 2D LA Volumes LVEDv A4C 102.80 mL LA ESV Index LVESv A4C 41.63 mL Aortic Valve AoV Peak Elton. 1.60 m/s AoV VTI 32.40 cm AO Peak GR. 10.75 mmHg AO Mean GR. 5.50 mmHg LVOT VTI 27.83 cm LVOT Peak Elton. 1.08 m/s NOAH(VTI)/BSA 2.76 cm2/m2 NOAH (VTI) 2.76 cm2 AI P 1/2 Time 439.20 ms Mitral Valve MV E Velocity 0.90m/s MR Peak Gr. 70.10mmHg MV A Velocity 1.10m/s TDI Lateral E' P. V 0.08m/s Medial E' P. V 0.06m/s Pulmonary Valve PV Peak Velocity 1.00m/s PV Peak Grad. 4.35mmHg RVOT VTI 23.48cm Tricuspid Valve TR P. Velocity 1.60m/s RAP ESTIMATE 10.00mmHg TR Peak Gr. 10.43mmHg RVSP 20.43mmHg LEFT VENTRICLE The left ventricle is normal size. The left ventricular systolic function is normal. The left ventricular ejection fraction is within the normal range. There is normal left ventricular wall thickness. There is normal LV segmental wall motion. There is no ventricular septal defect visualized. No left ventricle thrombus noted on this study. LVEF is 55-60%. RIGHT VENTRICLE The right ventricle is normal size. The right ventricular systolic function is normal. There is normal right ventricular wall thickness. ATRIA The left atrium size is normal. The right atrium size is normal. The interatrial septum is intact with no evidence for an atrial septal defect. AORTIC VALVE The aortic valve is normal in structure. There is no aortic valvular stenosis. Moderate to severe aortic regurgitation There is no aortic valvular vegetation. MITRAL VALVE The mitral valve is normal in structure. There is no mitral valve stenosis. Mild mitral regurgitation. There is no evidence of mitral valve vegetations. TRICUSPID VALVE The tricuspid valve is normal in structure. There is no tricuspid valve stenosis. Mild tricuspid regurgitation. There is no tricuspid valve vegetations. PULMONIC VALVE The pulmonary valve is normal in structure. There is no pulmonic valvular stenosis. Moderate pulmonic regurgitation. There is no pulmonic valve vegetations. GREAT VESSELS The aortic root is normal in size. The pulmonary artery is normal. Aortic arch is not well visualized. The IVC is normal in size and collapses >50% with inspiration. PERICARDIUM There is no pericardial effusion. There is no pleural effusion. Other Information Study Quality: Fair <Conclusion> The left ventricular systolic function is normal. LVEF is 55-60%. Moderate to severe aortic regurgitation Mild mitral regurgitation. Mild tricuspid regurgitation. Moderate pulmonic regurgitation. Electronically signed by : LINDY HOLLOWAY. 06/06/2020 11:26:51
[2020-06-06] MEDS: ROCEPHIN 1,000 MG in NS 100ML 100 ML IV SCH (13:00)
[2020-06-06] MEDS: REMDESIVIR (EUA) 100 MG in NS 100ML 100 ML IV SCH (14:36)
--- NOTE | 2020-06-06 19:53 | PRM.PN ---
Progress Note Subjective Date: Jun 06, 2020 Time: 12:30 Physician Notes: Patient seen and examined at bedside, states that she is feeling little bit better, she has been started on protocol for Covid, and is on a nonrebreather at 15 L. Objective Review IO, Exams,& Results Problems Acute/Active Problems: (1) 2019 novel coronavirus disease (COVID-19) (2) Hypoxia (3) Pneumonia (4) Respiratory distress Vital Signs Date Time Temp Pulse Resp B/P (MAP) Pulse Ox O2 Delivery O2 Flow Rate FiO2 06/06/20 16:20 98.4 63 20 143/63 (89) 94 Comfort Flow 15.00 Intake and Output 06/06/20 07:00 Intake Total 257 ml Output Total 220 ml Balance 37 ml FFP 257 ml Output Urine Total 220 ml # Voids 8 Laboratory Tests Test 06/05/20 12:40 06/05/20 12:59 06/05/20 13:05 06/05/20 15:11 White Blood Count 14.1 10^3/uL Red Blood Count 4.89 10^6/uL Hemoglobin 14.3 g/dL Hematocrit 42.1 % Mean Corpuscular Volume 86.1 fL Mean Corpuscular Hemoglobin 29.2 pg Mean Corpuscular Hemoglobin Concent 34.0 g/dL Red Cell Distribution Width 13.3 % Platelet Count 363 10^3/uL Mean Platelet Volume 9.3 fL Neutrophils (%) (Auto) 86.2 % Lymphocytes (%) (Auto) 3.7 % Monocytes (%) (Auto) 5.6 % Neutrophils # (Auto) 12.2 10^3/uL Lymphocytes # (Auto) 0.52 10^3/uL1 Monocytes # (Auto) 0.8 10^3/uL Absolute Immature Granulocyte (auto 0.62 10^3 u/L Absolute Eosinophils (auto) 0.0 10^3/uL Immature Granulocytes % 4.40 % Eosinophils % 0.0 % Basophils % 0.1 % Basophils # 0.0 10^3/uL Prothrombin Time 10.4 SEC Prothrombin Time INR (Non-Therap) 1.0 Activated Partial Thromboplast Time 22.5 SEC D-Dimer 1.12 mg/L Sodium Level 140 mmol/L Potassium Level 3.7 mmol/L Chloride Level 102.0 mmol/L Carbon Dioxide Level 28.1 mmol/L Anion Gap 13.6 Blood Urea Nitrogen 33 mg/dL Creatinine 1.02 mg/dL Estimated GFR () 67.1 Est GFR (CKD-EPI)(Non-Afr [place] Citizen) 55.5 BUN/Creatinine Ratio 32.0 Glucose Level 180 mg/dL Lactic Acid Level 2.0 mmol/L Calcium Level 9.4 mg/dL Magnesium Level 2.3 mg/dL Total Bilirubin 0.5 mg/dL Aspartate Amino Transf (AST/SGOT) 63 U/L Alanine Aminotransferase (ALT/SGPT) 59 U/L Alkaline Phosphatase 66 U/L Total Creatine Kinase 24 U/L Creatine Kinase MB < 0.5 ng/mL Troponin I < 0.02 ng/mL Pro-B-Type Natriuretic Peptide 1958 pg/mL Total Protein 7.4 g/dL Albumin 2.9 g/dL Globulin 4.5 Albumin/Globulin Ratio 0.644 Differential Total Cells Counted 100 #CELLS Segmented Neutrophils 89 % Lymphocytes 4 % Monocytes 5 % Differential Comment NORMAL Atypical Lymphocytes 2 % Platelet Estimate INCREASED Platelet Morphology NORMAL Blood Gas Sample Site LEFT RADIAL ARTERY Blood Gas pH 7.468 Blood Gas PCO2 36.4 mmHg Blood Gas PO2 64.8 mmHg Blood Gas HCO3 25.8 mmol/L Blood Gas Base Excess 2.3 mmol/L Virgil Test POSITIVE Arterial Blood Oxygen Saturation 92.9 % Deoxyhemoglobin 7.0 % Carboxyhemoglobin 0.8 % Methemoglobin 0.4 % Total Hemoglobin 15.1 % Total Oxygen Concentration 19.5 % Blood Gas Temperature 37.0 Oxygen Delivery Method (LAB) NON-REBREATHER MASK FiO2 100 % Total Carbon Dioxide 26.9 mmol/L Bedside Glucose 186 Test 06/05/20 16:43 06/05/20 20:03 06/06/20 05:05 06/06/20 11:21 Lactic Acid Followup at 2 Hours 1.4 mmol/L Bedside Glucose 177 136 White Blood Count 8.2 10^3/uL Red Blood Count 4.43 10^6/uL Hemoglobin 13.1 g/dL Hematocrit 38.5 % Mean Corpuscular Volume 86.9 fL Mean Corpuscular Hemoglobin 29.6 pg Mean Corpuscular Hemoglobin Concent 34.0 g/dL Red Cell Distribution Width 13.1 % Platelet Count 351 10^3/uL Mean Platelet Volume 9.3 fL Neutrophils (%) (Auto) 80.3 % Lymphocytes (%) (Auto) 6.9 % Monocytes (%) (Auto) 5.8 % Neutrophils # (Auto) 6.6 10^3/uL Lymphocytes # (Auto) 0.56 10^3/uL1 Monocytes # (Auto) 0.5 10^3/uL Absolute Immature Granulocyte (auto 0.56 10^3 u/L Absolute Eosinophils (auto) 0.0 10^3/uL Immature Granulocytes % 6.90 % Eosinophils % 0.0 % Basophils % 0.1 % Basophils # 0.0 10^3/uL Sodium Level 142 mmol/L Potassium Level 3.5 mmol/L Chloride Level 103.0 mmol/L Carbon Dioxide Level 28.4 mmol/L Anion Gap 14.1 Blood Urea Nitrogen 40 mg/dL Creatinine 0.99 mg/dL Estimated GFR () 69.5 Est GFR (CKD-EPI)(Non-Afr [place] Citizen) 57.4 BUN/Creatinine Ratio 40.0 Glucose Level 168 mg/dL Calcium Level 9.0 mg/dL Total Bilirubin 0.4 mg/dL Aspartate Amino Transf (AST/SGOT) 45 U/L Alanine Aminotransferase (ALT/SGPT) 56 U/L Alkaline Phosphatase 60 U/L Total Protein 6.9 g/dL Albumin 2.7 g/dL Globulin 4.2 Albumin/Globulin Ratio 0.642 Test 06/06/20 16:19 Bedside Glucose 203 Current Medications Medications (Trade) Dose Ordered Sig/Stas PRN Reason Start Time Stop Time Status Last Admin Acetaminophen (Tylenol) 1,000 mg Q6H PRN PAIN 1 - 3 06/05/20 15:30 07/05/20 15:29 Ascorbic Acid (Vitamin C) 500 mg BID 06/05/20 21:00 07/05/20 20:59 06/06/20 08:36 Azithromycin 500 mg/Sodium Chloride 250 ml @ 175 mls/hr Q24HRS 06/05/20 20:00 07/05/20 19:59 06/05/20 21:21 Ceftriaxone Sodium 1000 mg/ Sodium Chloride 100 ml @ 100 mls/hr Q24HRS 06/06/20 13:00 07/06/20 12:59 06/06/20 13:00 Dextrose (Dextrose 50%-Water Syringe) 25 ml STAT PRN HYPOGLYCEMIA 06/05/20 15:30 07/05/20 15:29 Enoxaparin Sodium (Lovenox) 80 mg BID 06/05/20 21:00 07/05/20 20:59 06/06/20 08:37 Famotidine (Pepcid) 20 mg BID 06/05/20 21:00 07/05/20 20:59 06/06/20 08:36 Furosemide (Lasix) 20 mg STAT 06/05/20 16:00 07/05/20 15:59 06/05/20 22:09 Gabapentin (Neurontin) 600 mg BID 06/05/20 21:00 07/05/20 20:59 06/06/20 08:36 Guaifenesin (Mucinex) 1,200 mg BID 06/05/20 21:00 07/05/20 20:59 06/06/20 08:36 Hydrochlorothiazide (Hydrochlorothiazide) 12.5 mg DAILY 06/06/20 09:00 07/06/20 08:59 06/06/20 08:40 Insulin Glargine (Lantus) 10 unit HS 06/05/20 21:00 07/05/20 20:59 06/05/20 20:39 Insulin Human Lispro (Humalog) 0-140 0 Units 141-200... ACHS 06/05/20 17:30 07/05/20 17:29 06/06/20 16:44 Losartan Potassium (Cozaar) 100 mg DAILY 06/06/20 09:00 07/06/20 08:59 06/06/20 08:40 Morphine Sulfate (Morphine Sulfate) 2 mg Q4H PRN PAIN 7 - 10 06/05/20 15:30 07/05/20 15:29 Remdesivir 100 mg/ Sodium Chloride 120 ml @ 111.111 mls/hr Q24HRS 06/06/20 15:00 06/09/20 16:05 06/06/20 14:36 Zolpidem Tartrate (Ambien) 5 mg HS PRN INSOMNIA 06/05/20 15:30 07/05/20 15:29 CHRISTIANNE Jane MD Rt Incentive Spirometry (06/06/20 12:35) Remdesivir (Remdesivir (Eua)) (06/06/20 15:00) Heart: Regular rate, No murmurs, Gallops, Rubs Abdomen: Normal bowel sounds, Soft, No tenderness Lungs: Normal air movement, Other (Fine crackles at the bases) Skin: No rashes, No significant lesion Assessment & Plan: Problems/Diagnosis: (1) Hypertension Was this Present on Admission?: YES ICD Code: I10 - Essential (primary) hypertension SNOMED: 78130663 Status: Chronic Assessment & Plan: Stable continue routine management (2) Elevated brain natriuretic peptide (BNP) level Was this Present on Admission?: YES ICD Code: R79.89 - Other specified abnormal findings of blood chemistry SNOMED: 433772867, 797504691 Assessment & Plan: Echo report shows: The left ventricular systolic function is normal. LVEF is 55-60%. Moderate to severe aortic regurgitation Mild mitral regurgitation. Mild tricuspid regurgitation. Moderate pulmonic regurgitation. (3) Respiratory distress Was this Present on Admission?: YES ICD Code: R06.03 - Acute respiratory distress SNOMED: 608366384 Status: Acute Assessment & Plan: Patient on nonrebreather 15 L, will try to wean as she seems to be doing better. (4) Hypoxia Was this Present on Admission?: YES ICD Code: R09.02 - Hypoxemia SNOMED: 716896061 Status: Acute Assessment & Plan: Patient on 15 L nonrebreather we will continue to monitor. (5) Pneumonia Was this Present on Admission?: YES ICD Code: J18.9 - Pneumonia, unspecified organism SNOMED: 700652963 Status: Acute Assessment & Plan: Continue with current antibiotics and treatments, patient currently on nonrebreather at 15 L we will continue to monitor and try to wean as warranted. (6) 2019 novel coronavirus disease (COVID-19) Was this Present on Admission?: YES ICD Code: U07.1 - COVID-19 SNOMED: 112555006 Status: Acute Assessment Patient stable although on high levels of oxygen with a nonrebreather at 15 L, will continue to monitor and wean when possible. We will continue also with antibiotics and antivirals that have already been started. Problem Qualifiers (1) Pneumonia: Pneumonia type: due to unspecified organism Laterality: bilateral Lung location: unspecified part of lung Qualified Codes: J18.9 - Pneumonia, unspecified organism CHRISTIANNE MENDEZ MD Jun 06, 2020 19:53
[2020-06-06] MEDS: ZITHROMAX 500 MG in NS 250ML 250 ML IV SCH (20:00)
[2020-06-06] MEDS: LANTUS SQ SCH (20:48)
[2020-06-06] MEDS: AMBIEN PO PRN (20:51)
[2020-06-06] MEDS: TYLENOL PO PRN (20:51)
[2020-06-07] VITALS (7 sets, daily range): BP systolic 115–140; BP diastolic 57–67
[2020-06-07] MEDS: HUMALOG SQ SCH ×4 (07:30→20:06)
[2020-06-07 09:00] LABS: BASOPHIL % 0.1 % (0.0-0.2); LYMPHOCYTES # 0.85 10^3/uL1 (1.0-4.8); LYMPHOCYTES % 6.3 % (24.0-44.0); MEAN CORP HGB 29.4 pg (26-34); MONOCYTES # 0.7 10^3/uL (0.3-0.8); MONOCYTES % 5.3 % (5.0-12.0); NEUTROPHIL # 11.2 10^3/uL (1.8-7.7); NEUTROPHILS % 83.5 % (41.0-85.0); PLATELET COUNT 348 10^3/uL (150-400)
[2020-06-07] MEDS: VITAMIN C PO SCH ×2 (09:28→20:31)
[2020-06-07] MEDS: PEPCID PO SCH ×2 (09:28→20:31)
[2020-06-07] MEDS: DEXAMETHASONE 10 MG/ML VIAL IV SCH ×2 (09:28→20:32)
[2020-06-07] MEDS: NEURONTIN PO SCH ×2 (09:28→20:31)
[2020-06-07] MEDS: MUCINEX PO SCH ×2 (09:28→20:31)
[2020-06-07] MEDS: COZAAR PO SCH (09:29)
[2020-06-07] MEDS: HYDROCHLOROTHIAZIDE PO SCH (09:29)
[2020-06-07] MEDS: LOVENOX SQ SCH (09:29)
[2020-06-07 09:38] LABS: CALCIUM 9.2 mg/dL (8.4-10.5); CARBON DIOXIDE 29.5 mmol/L (20.0-32)
[2020-06-07] MEDS: ROCEPHIN 1,000 MG in NS 100ML 100 ML IV SCH (12:56)
[2020-06-07] MEDS: REMDESIVIR (EUA) 100 MG in NS 100ML 100 ML IV SCH (15:11)
--- NOTE | 2020-06-07 17:43 | PRM.PN ---
Progress Note Subjective Date: Jun 07, 2020 Time: 12:30 Physician Notes: Patient seen and examined on morning rounds, she states she is feeling much better today. Has been good improvement in her breathing and activity. She has been using the I-S consistently and is breathing much better. Patient has no concerns or complaints. No adverse events overnight. Objective Review IO, Exams,& Results Problems Acute/Active Problems: (1) 2019 novel coronavirus disease (COVID-19) (2) Hypoxia (3) Pneumonia (4) Respiratory distress Vital Signs Date Time Temp Pulse Resp B/P (MAP) Pulse Ox O2 Delivery O2 Flow Rate FiO2 06/07/20 16:58 98.1 53 19 137/65 (89) 93 06/07/20 13:45 Non-Rebreather 10.00 Intake and Output 06/07/20 07:00 Intake Total 4797 ml Output Total 220 ml Balance 4577 ml Intake Oral 170 ml Electrolyte Solution 50 ml IV Total 220 ml FFP 257 ml Other 4100 ml Output Urine Total 220 ml # Voids 4 Laboratory Tests Test 06/05/20 20:03 06/06/20 05:05 06/06/20 11:21 06/06/20 16:19 Bedside Glucose 177 136 203 White Blood Count 8.2 10^3/uL Red Blood Count 4.43 10^6/uL Hemoglobin 13.1 g/dL Hematocrit 38.5 % Mean Corpuscular Volume 86.9 fL Mean Corpuscular Hemoglobin 29.6 pg Mean Corpuscular Hemoglobin Concent 34.0 g/dL Red Cell Distribution Width 13.1 % Platelet Count 351 10^3/uL Mean Platelet Volume 9.3 fL Neutrophils (%) (Auto) 80.3 % Lymphocytes (%) (Auto) 6.9 % Monocytes (%) (Auto) 5.8 % Neutrophils # (Auto) 6.6 10^3/uL Lymphocytes # (Auto) 0.56 10^3/uL1 Monocytes # (Auto) 0.5 10^3/uL Absolute Immature Granulocyte (auto 0.56 10^3 u/L Absolute Eosinophils (auto) 0.0 10^3/uL Immature Granulocytes % 6.90 % Eosinophils % 0.0 % Basophils % 0.1 % Basophils # 0.0 10^3/uL Sodium Level 142 mmol/L Potassium Level 3.5 mmol/L Chloride Level 103.0 mmol/L Carbon Dioxide Level 28.4 mmol/L Anion Gap 14.1 Blood Urea Nitrogen 40 mg/dL Creatinine 0.99 mg/dL Estimated GFR () 69.5 Est GFR (CKD-EPI)(Non-Afr [place]) 57.4 BUN/Creatinine Ratio 40.0 Glucose Level 168 mg/dL Calcium Level 9.0 mg/dL Total Bilirubin 0.4 mg/dL Aspartate Amino Transf (AST/SGOT) 45 U/L Alanine Aminotransferase (ALT/SGPT) 56 U/L Alkaline Phosphatase 60 U/L Total Protein 6.9 g/dL Albumin 2.7 g/dL Globulin 4.2 Albumin/Globulin Ratio 0.642 Test 06/06/20 20:18 06/07/20 04:57 06/07/20 07:45 06/07/20 08:25 Bedside Glucose 216 169 165 White Blood Count 13.4 10^3/uL Red Blood Count 4.77 10^6/uL Hemoglobin 14.0 g/dL Hematocrit 42.5 % Mean Corpuscular Volume 89.1 fL Mean Corpuscular Hemoglobin 29.4 pg Mean Corpuscular Hemoglobin Concent 32.9 g/dL Red Cell Distribution Width 13.0 % Platelet Count 348 10^3/uL Mean Platelet Volume 9.8 fL Neutrophils (%) (Auto) 83.5 % Lymphocytes (%) (Auto) 6.3 % Monocytes (%) (Auto) 5.3 % Neutrophils # (Auto) 11.2 10^3/uL Lymphocytes # (Auto) 0.85 10^3/uL1 Monocytes # (Auto) 0.7 10^3/uL Absolute Immature Granulocyte (auto 0.64 10^3 u/L Absolute Eosinophils (auto) 0.0 10^3/uL Immature Granulocytes % 4.80 % Eosinophils % 0.0 % Basophils % 0.1 % Basophils # 0.0 10^3/uL Sodium Level 141 mmol/L Potassium Level 3.5 mmol/L Chloride Level 103.0 mmol/L Carbon Dioxide Level 29.5 mmol/L Anion Gap 12.0 Blood Urea Nitrogen 45 mg/dL Creatinine 0.96 mg/dL Estimated GFR () 72.0 Est GFR (CKD-EPI)(Non-Afr [place]ian) 59.5 BUN/Creatinine Ratio 46.0 Glucose Level 194 mg/dL Calcium Level 9.2 mg/dL Total Bilirubin 0.4 mg/dL Aspartate Amino Transf (AST/SGOT) 84 U/L Alanine Aminotransferase (ALT/SGPT) 96 U/L Alkaline Phosphatase 62 U/L Total Protein 6.9 g/dL Albumin 2.8 g/dL Globulin 4.1 Albumin/Globulin Ratio 0.682 Current Medications Medications (Trade) Dose Ordered Sig/Stas PRN Reason Start Time Stop Time Status Last Admin Acetaminophen (Tylenol) 1,000 mg Q6H PRN PAIN 1 - 3 06/05/20 15:30 07/05/20 15:29 06/06/20 20:51 Ascorbic Acid (Vitamin C) 500 mg BID 06/05/20 21:00 07/05/20 20:59 06/07/20 09:28 Azithromycin 500 mg/Sodium Chloride 250 ml @ 175 mls/hr Q24HRS 06/05/20 20:00 07/05/20 19:59 06/06/20 20:00 Ceftriaxone Sodium 1000 mg/ Sodium Chloride 100 ml @ 100 mls/hr Q24HRS 06/06/20 13:00 07/06/20 12:59 06/07/20 12:56 Dextrose (Dextrose 50%-Water Syringe) 25 ml STAT PRN HYPOGLYCEMIA 06/05/20 15:30 07/05/20 15:29 Enoxaparin Sodium (Lovenox) 40 mg Q24HRS 06/08/20 12:30 07/08/20 12:29 Famotidine (Pepcid) 20 mg BID 06/05/20 21:00 07/05/20 20:59 06/07/20 09:28 Furosemide (Lasix) 20 mg STAT 06/05/20 16:00 07/05/20 15:59 06/05/20 22:09 Gabapentin (Neurontin) 600 mg BID 06/05/20 21:00 07/05/20 20:59 06/07/20 09:28 Guaifenesin (Mucinex) 1,200 mg BID 06/05/20 21:00 07/05/20 20:59 06/07/20 09:28 Hydrochlorothiazide (Hydrochlorothiazide) 12.5 mg DAILY 06/06/20 09:00 07/06/20 08:59 06/07/20 09:29 Insulin Glargine (Lantus) 10 unit HS 06/05/20 21:00 07/05/20 20:59 06/06/20 20:48 Insulin Human Lispro (Humalog) 0-140 0 Units 141-200... ACHS 06/05/20 17:30 07/05/20 17:29 06/07/20 16:47 Losartan Potassium (Cozaar) 100 mg DAILY 06/06/20 09:00 07/06/20 08:59 06/07/20 09:29 Morphine Sulfate (Morphine Sulfate) 2 mg Q4H PRN PAIN 7 - 10 06/05/20 15:30 07/05/20 15:29 Remdesivir 100 mg/ Sodium Chloride 120 ml @ 111.111 mls/hr Q24HRS 06/06/20 15:00 06/09/20 16:05 06/07/20 15:11 Zolpidem Tartrate (Ambien) 5 mg HS PRN INSOMNIA 06/05/20 15:30 07/05/20 15:29 06/06/20 20:51 Deepa - CHRISTIANNE MENDEZ MD Rt Incentive Spirometry (06/06/20 12:35) Remdesivir (Remdesivir (Eua)) (06/06/20 15:00) Enoxaparin Sodium (Lovenox) (06/08/20 12:30) Heart: Regular rate, No murmurs, Gallops, Rubs Abdomen: Normal bowel sounds, Soft, No tenderness Lungs: Normal air movement, Other (Fine crackles at the bases) Skin: No rashes, No significant lesion Assessment & Plan: Problems/Diagnosis: (1) Pneumonia Was this Present on Admission?: YES ICD Code: J18.9 - Pneumonia, unspecified organism SNOMED: 046330037 Status: Acute Assessment & Plan: Improving, continue current management with antibiotics and IS. (2) 2019 novel coronavirus disease (COVID-19) Was this Present on Admission?: YES ICD Code: U07.1 - COVID-19 SNOMED: 118547392 Status: Acute Assessment & Plan: Improving, continue current management with medication, O2 and IS. (3) Hypertension Was this Present on Admission?: YES ICD Code: I10 - Essential (primary) hypertension SNOMED: 58259404 Status: Chronic Assessment & Plan: Stable, continue current management Problem Qualifiers (1) Pneumonia: Pneumonia type: due to unspecified organism Laterality: bilateral Lung location: unspecified part of lung Qualified Codes: J18.9 - Pneumonia, unspecified organism CHRISTIANNE MENDEZ MD Jun 07, 2020 17:43
[2020-06-07 18:35] LABS: BAND NEUTROPHILS 2 % (2-6); LYMPHOCYTE 9 % (25-36); MONOCYTE 5 % (3-9); MYELOCYTES 1 %; SEGMENTED NEUTROPHILS 81 % (31-76); TOXIC GRANULATION 1+ (NEGATIVE)
[2020-06-07] MEDS: LANTUS SQ SCH (20:08)
[2020-06-07] MEDS: ZITHROMAX 500 MG in NS 250ML 250 ML IV SCH (20:30)
[2020-06-07] MEDS: AMBIEN PO PRN (20:32)
[2020-06-07] MEDS: TYLENOL PO PRN (20:32)
[2020-06-08 04:05] VITALS: BP 169/83
[2020-06-08 04:08] VITALS: BP 136/67
[2020-06-08 06:45] LABS: BASOPHIL % 0.1 % (0.0-0.2); LYMPHOCYTES % 3.7 % (24.0-44.0); MEAN CORP HGB 29.9 pg (26-34); MONOCYTES # 0.8 10^3/uL (0.3-0.8); MONOCYTES % 4.7 % (5.0-12.0); NEUTROPHIL # 14.2 10^3/uL (1.8-7.7); NEUTROPHILS % 87.2 % (41.0-85.0); PLATELET COUNT 402 10^3/uL (150-400); RED CELL DISTRIBUTION WIDTH 12.7 % (11.5-14.5)
[2020-06-08 07:09] LABS: CALCIUM 9.1 mg/dL (8.4-10.5); CARBON DIOXIDE 28.4 mmol/L (20.0-32)
[2020-06-08] MEDS: HUMALOG SQ SCH ×4 (07:30→20:56)
[2020-06-08 08:38] VITALS: BP 114/52
[2020-06-08 08:49] LABS: BAND NEUTROPHILS 1 % (2-6); LYMPHOCYTE 3 % (25-36); MONOCYTE 7 % (3-9); SEGMENTED NEUTROPHILS 88 % (31-76)
[2020-06-08] MEDS: HYDROCHLOROTHIAZIDE PO SCH (09:00)
[2020-06-08] MEDS: COZAAR PO SCH (09:00)
[2020-06-08] MEDS: VITAMIN C PO SCH ×2 (09:49→21:00)
[2020-06-08] MEDS: PEPCID PO SCH ×2 (09:49→21:00)
[2020-06-08] MEDS: NEURONTIN PO SCH ×2 (09:50→21:00)
[2020-06-08] MEDS: MUCINEX PO SCH ×2 (09:50→21:00)
[2020-06-08] MEDS: DEXAMETHASONE 10 MG/ML VIAL IV SCH ×2 (09:50→21:00)
[2020-06-08 12:08] VITALS: BP 134/62
[2020-06-08] MEDS ORDERED: LOVENOX SQ SCH (12:30)
--- NOTE | 2020-06-08 15:01 | PRM.PN ---
Subjective Subjective Date: Jun 08, 2020 Time: 11:20 Subjective Patient seen and examined on rounds this morning. Patient states she is doing well feeling a lot better. However upon entering the room patient was in tears with the nurse at her side. Patient has been advised that her who is an another hospital with a diagnosis of COVID-19 is being extubated today, he is not improved. She is obviously upset and grieving. Patient History: Alzheimer's disease 33 FATHER, , Age:73 Chronic obstructive pulmonary disease G8 BROTHER FH: diverticulitis Hypertension 32 MOTHER, , Age:72 No known health problems G8 BROTHER (BRAIN INJURY FROM ELECTRICAL ACCIDENT) G8 SISTER V19 CHILD V19 CHILD V19 CHILD V19 CHILD No Family History of: Asthma Cerebrovascular disorder Congestive heart failure Diabetes insipidus Diabetes mellitus Parkinson's disease VTE VTE Risk Total Score: 0 VTE Risk Score VTE Risk: Score 0-1 = Low Risk (Aggressive mobilization; early ambulation; no VTE prophylaxis required) Score 2: Moderate Risk (Intermittent/Pneumatic Compression Device OR Lovenox/Heparin/Coumadin) Score 3-4: High Risk (Intermittent/Pneumatic Compression Device AND Lovenox/Heparin/Coumadin) Score > or =5: Highest Risk (Intermittent/Pneumatic Compression Device AND Lovenox/Heparin/Coumadin) Review of Systems Constitutional: No: Fever, Chills, Sweats, Weakness, Malaise Eyes: No: Pain, Vision change, Conjunctivae inflammation, Eyelid inflammation ENT: Nose discharge, Nose congestion, Other; No: Nose pain, Mouth pain, Mouth swelling, Throat pain, Throat swelling Respiratory: Cough, Shortness of breath, Sputum Cardiovascular: No: Chest Pain, Palpitations, Orthopnea, Paroxysmal Noc. Dyspnea, Edema Gastrointestinal: No: Nausea, Vomiting, Abdominal Pain Genitourinary: No Dysuria, No Frequency, No Incontinence, No Hematuria, No Retention Musculoskeletal: other; No: neck pain, shoulder pain, arm pain, back pain, hand pain, leg pain, foot pain Neurological: No: Weakness, Numbness Allergies: Coded Allergies: No Known Drug Allergies (Verified Allergy, Unknown, 06/03/20) Scheduled Dulaglutide (Trulicity), 0.75 MG SQ Q7D, (Reported) Gabapentin (Neurontin), 600 MG PO BID, (Reported) Olmesartan/Hydrochlorothiazide (Benicar Hct 20-12.5 Mg Tablet), 1 TAB PO DAILY, (Reported) Discontinued Medications Gabapentin (Gabapentin), 1 CAP PO HS, (Reported) Discontinued Reason: Discontinue Gabapentin (Gabapentin), 1 CAP PO HS, (Reported) Discontinued Reason: Discontinue Objective Vitals and I/O Vital Sign - Last 24 Hours 06/07/20 06/07/20 06/07/20 06/07/20 16:58 19:19 21:33 23:40 Temp 98.1 98.0 98.1 Pulse 53 62 76 Resp 19 18 18 B/P (MAP) 137/65 (89) 115/57 (76) 132/61 (84) Pulse Ox 93 95 97 O2 Delivery Non-Rebreather O2 Flow Rate 15.00 06/08/20 06/08/20 06/08/20 06/08/20 04:08 08:38 09:00 09:00 Temp 98.2 97.1 Pulse 82 66 Resp 18 19 B/P (MAP) 136/67 (90) 114/52 (72) 114/52 114/52 Pulse Ox 96 90 O2 Delivery Comfort Flow O2 Flow Rate 15.00 06/08/20 12:08 Temp 98.0 Pulse 67 Resp 20 B/P (MAP) 134/62 (86) Pulse Ox 90 General: Alert, Oriented X3, Cooperative, mild distress HEENT: Atraumatic, Mucous membr. moist/pink Neck: Supple Lungs: Normal air movement, Other (Fine crackles at the bases) Heart: Regular rate, No murmurs, Gallops, Rubs Abdomen: Normal bowel sounds, Soft, No tenderness Skin: No rashes, No significant lesion Neuro: Normal speech, Strength at 5/5 X4 ext, Normal tone, Cranial nerves 3-12 NL Psych/Mental Status: Mental status NL, Mood NL All Results(Lab/Rad) Laboratory Tests Test 06/07/20 15:00 06/07/20 19:50 06/08/20 04:35 06/08/20 05:47 Bedside Glucose 173 260 163 White Blood Count 16.3 10^3/uL Red Blood Count 4.42 10^6/uL Hemoglobin 13.2 g/dL Hematocrit 38.3 % Mean Corpuscular Volume 86.7 fL Mean Corpuscular Hemoglobin 29.9 pg Mean Corpuscular Hemoglobin Concent 34.5 g/dL Red Cell Distribution Width 12.7 % Platelet Count 402 10^3/uL Mean Platelet Volume 9.8 fL Neutrophils (%) (Auto) 87.2 % Lymphocytes (%) (Auto) 3.7 % Monocytes (%) (Auto) 4.7 % Neutrophils # (Auto) 14.2 10^3/uL Lymphocytes # (Auto) 0.60 10^3/uL1 Monocytes # (Auto) 0.8 10^3/uL Absolute Immature Granulocyte (auto 0.70 10^3 u/L Absolute Eosinophils (auto) 0.0 10^3/uL Immature Granulocytes % 4.30 % Eosinophils % 0.0 % Basophils % 0.1 % Basophils # 0.0 10^3/uL Sodium Level 141 mmol/L Potassium Level 3.7 mmol/L Chloride Level 104.0 mmol/L Carbon Dioxide Level 28.4 mmol/L Anion Gap 12.3 Blood Urea Nitrogen 42 mg/dL Creatinine 0.98 mg/dL Estimated GFR () 70.3 Est GFR (CKD-EPI)(Non-Afr Uzbek) 58.1 BUN/Creatinine Ratio 42.0 Glucose Level 192 mg/dL Calcium Level 9.1 mg/dL Total Bilirubin 0.4 mg/dL Aspartate Amino Transf (AST/SGOT) 37 U/L Alanine Aminotransferase (ALT/SGPT) 78 U/L Alkaline Phosphatase 55 U/L Total Protein 6.4 g/dL Albumin 2.6 g/dL Globulin 3.8 Albumin/Globulin Ratio 0.684 Test 06/08/20 07:03 06/08/20 08:05 Differential Total Cells Counted 100 #CELLS Segmented Neutrophils 88 % Band Neutrophils 1 % Lymphocytes 3 % Monocytes 7 % Metamyelocytes 1 % Platelet Estimate INCREASED Platelet Morphology NORMAL Blood Morphology Comment NORMAL MORPHOLOGY Bedside Glucose 175 Current Medications Medications (Trade) Dose Ordered Sig/Stas Route PRN Reason Start Time Stop Time Status Last Admin Dose Admin Ceftriaxone Sodium 1000 mg/ Sodium Chloride 100 ml @ 100 mls/hr STAT STAT IV 06/05/20 12:28 06/05/20 15:44 DC 06/05/20 12:56 Lorazepam (Ativan) 1 mg STAT STAT IV 06/05/20 12:33 06/05/20 15:44 DC 06/05/20 12:56 Ceftriaxone Sodium (Rocephin) 1,000 mg STK-MED ONCE .ROUTE 06/05/20 12:32 06/05/20 12:35 DC Enoxaparin Sodium (Lovenox) 90 mg STAT STAT SQ 06/05/20 13:39 06/05/20 13:41 DC Enoxaparin Sodium (Lovenox) 90 mg STAT STAT SQ 06/05/20 13:42 06/05/20 13:44 DC 06/05/20 14:15 Enoxaparin Sodium (Lovenox) 100 mg STK-MED ONCE SQ 06/05/20 13:42 06/05/20 13:44 DC Ceftriaxone Sodium 1000 mg/ Sodium Chloride 100 ml @ 100 mls/hr Q24HRS IV 06/06/20 13:00 07/06/20 12:59 06/07/20 12:56 Acetaminophen (Tylenol) 1,000 mg Q6H PRN PO PAIN 1 - 3 06/05/20 15:30 07/05/20 15:29 06/07/20 20:32 Zolpidem Tartrate (Ambien) 5 mg HS PRN PO INSOMNIA 06/05/20 15:30 07/05/20 15:29 06/07/20 20:32 Morphine Sulfate (Morphine Sulfate) 2 mg Q4H PRN IV PAIN 7 - 10 06/05/20 15:30 07/05/20 15:29 Insulin Human Lispro (Humalog) 0-140 0 Units 141-200... ACHS SQ 06/05/20 17:30 07/05/20 17:29 06/08/20 11:30 Dextrose (Dextrose 50%-Water Syringe) 25 ml STAT PRN IV HYPOGLYCEMIA 06/05/20 15:30 07/05/20 15:29 Guaifenesin (Mucinex) 1,200 mg BID PO 06/05/20 21:00 07/05/20 20:59 06/08/20 09:50 Zinc Sulfate (Zinc Sulfate) 220 mg STAT STAT PO 06/05/20 15:37 06/05/20 15:47 DC 06/05/20 17:31 Azithromycin 500 mg/Sodium Chloride 250 ml @ 175 mls/hr Q24HRS IV 06/05/20 16:00 06/05/20 17:50 DC Furosemide (Lasix) 20 mg STAT IV 06/05/20 16:00 07/05/20 15:59 06/05/20 22:09 Ascorbic Acid (Vitamin C) 500 mg BID PO 06/05/20 21:00 07/05/20 20:59 06/08/20 09:49 Insulin Glargine (Lantus) 10 unit HS SQ 06/05/20 21:00 07/05/20 20:59 06/07/20 20:08 Remdesivir 200 mg/ Sodium Chloride 140 ml @ 120.69 mls/ hr OT STAT IV 06/05/20 15:37 06/05/20 16:46 DC 06/05/20 17:31 Famotidine (Pepcid) 20 mg BID PO 06/05/20 21:00 07/05/20 20:59 06/08/20 09:49 Enoxaparin Sodium (Lovenox) 80 mg BID SQ 06/05/20 21:00 06/07/20 12:14 DC 06/07/20 09:29 Gabapentin (Neurontin) 600 mg BID PO 06/05/20 21:00 07/05/20 20:59 06/08/20 09:50 Losartan Potassium (Cozaar) 100 mg DAILY PO 06/06/20 09:00 07/06/20 08:59 06/07/20 09:29 Hydrochlorothiazide (Hydrochlorothiazide) 12.5 mg DAILY PO 06/06/20 09:00 07/06/20 08:59 06/07/20 09:29 Zinc Sulfate (Zinc Sulfate) 220 mg STK-MED ONCE .ROUTE 06/05/20 17:08 06/05/20 17:11 DC Azithromycin 500 mg/Sodium Chloride 250 ml @ 175 mls/hr Q24HRS IV 06/05/20 20:00 07/05/20 19:59 06/07/20 20:30 Sodium Chloride 250 ml @ ud STK-MED ONCE IV 06/05/20 20:50 06/05/20 20:52 DC Sodium Chloride 500 ml @ ud STK-MED ONCE IV 06/06/20 00:24 06/06/20 00:26 DC Remdesivir 100 mg/ Sodium Chloride 120 ml @ 111.111 mls/hr Q24HRS IV 06/06/20 15:00 06/09/20 16:05 06/07/20 15:11 Enoxaparin Sodium (Lovenox) 40 mg Q24HRS SQ 06/08/20 12:30 07/08/20 12:29 06/08/20 12:26 Course Sepsis Screening Results: Posi: POSITIVE Sepsis Qualifier/Stage: SEPSIS RISK Duration or Total Time Spent w: 15 min Vitals & review Data Vital Sign - Last 24 Hours 06/07/20 06/07/20 06/07/20 06/07/20 16:58 19:19 21:33 23:40 Temp 98.1 98.0 98.1 Pulse 53 62 76 Resp 19 18 18 B/P (MAP) 137/65 (89) 115/57 (76) 132/61 (84) Pulse Ox 93 95 97 O2 Delivery Non-Rebreather O2 Flow Rate 15.00 06/08/20 06/08/20 06/08/20 06/08/20 04:08 08:38 09:00 09:00 Temp 98.2 97.1 Pulse 82 66 Resp 18 19 B/P (MAP) 136/67 (90) 114/52 (72) 114/52 114/52 Pulse Ox 96 90 O2 Delivery Comfort Flow O2 Flow Rate 15.00 06/08/20 12:08 Temp 98.0 Pulse 67 Resp 20 B/P (MAP) 134/62 (86) Pulse Ox 90 Laboratory Tests Test 06/06/20 16:19 06/06/20 20:18 06/07/20 04:57 06/07/20 07:45 Bedside Glucose 203 216 169 165 Test 06/07/20 08:25 06/07/20 09:12 06/07/20 11:06 06/07/20 15:00 White Blood Count 13.4 10^3/uL Red Blood Count 4.77 10^6/uL Hemoglobin 14.0 g/dL Hematocrit 42.5 % Mean Corpuscular Volume 89.1 fL Mean Corpuscular Hemoglobin 29.4 pg Mean Corpuscular Hemoglobin Concent 32.9 g/dL Red Cell Distribution Width 13.0 % Platelet Count 348 10^3/uL Mean Platelet Volume 9.8 fL Neutrophils (%) (Auto) 83.5 % Lymphocytes (%) (Auto) 6.3 % Monocytes (%) (Auto) 5.3 % Neutrophils # (Auto) 11.2 10^3/uL Lymphocytes # (Auto) 0.85 10^3/uL1 Monocytes # (Auto) 0.7 10^3/uL Absolute Immature Granulocyte (auto 0.64 10^3 u/L Absolute Eosinophils (auto) 0.0 10^3/uL Immature Granulocytes % 4.80 % Eosinophils % 0.0 % Basophils % 0.1 % Basophils # 0.0 10^3/uL Sodium Level 141 mmol/L Potassium Level 3.5 mmol/L Chloride Level 103.0 mmol/L Carbon Dioxide Level 29.5 mmol/L Anion Gap 12.0 Blood Urea Nitrogen 45 mg/dL Creatinine 0.96 mg/dL Estimated GFR () 72.0 Est GFR (CKD-EPI)(Non-Afr Uzbek) 59.5 BUN/Creatinine Ratio 46.0 Glucose Level 194 mg/dL Calcium Level 9.2 mg/dL Total Bilirubin 0.4 mg/dL Aspartate Amino Transf (AST/SGOT) 84 U/L Alanine Aminotransferase (ALT/SGPT) 96 U/L Alkaline Phosphatase 62 U/L Total Protein 6.9 g/dL Albumin 2.8 g/dL Globulin 4.1 Albumin/Globulin Ratio 0.682 Differential Total Cells Counted 100 #CELLS Segmented Neutrophils 81 % Band Neutrophils 2 % Lymphocytes 9 % Monocytes 5 % Metamyelocytes 1 % Myelocytes 1 % Toxic Granulation 1+ Platelet Estimate ADEQUATE Platelet Morphology NORMAL Blood Morphology Comment NORMAL MORPHOLOGY Bedside Glucose 178 173 Test 06/07/20 19:50 06/08/20 04:35 06/08/20 05:47 06/08/20 07:03 Bedside Glucose 260 163 White Blood Count 16.3 10^3/uL Red Blood Count 4.42 10^6/uL Hemoglobin 13.2 g/dL Hematocrit 38.3 % Mean Corpuscular Volume 86.7 fL Mean Corpuscular Hemoglobin 29.9 pg Mean Corpuscular Hemoglobin Concent 34.5 g/dL Red Cell Distribution Width 12.7 % Platelet Count 402 10^3/uL Mean Platelet Volume 9.8 fL Neutrophils (%) (Auto) 87.2 % Lymphocytes (%) (Auto) 3.7 % Monocytes (%) (Auto) 4.7 % Neutrophils # (Auto) 14.2 10^3/uL Lymphocytes # (Auto) 0.60 10^3/uL1 Monocytes # (Auto) 0.8 10^3/uL Absolute Immature Granulocyte (auto 0.70 10^3 u/L Absolute Eosinophils (auto) 0.0 10^3/uL Immature Granulocytes % 4.30 % Eosinophils % 0.0 % Basophils % 0.1 % Basophils # 0.0 10^3/uL Sodium Level 141 mmol/L Potassium Level 3.7 mmol/L Chloride Level 104.0 mmol/L Carbon Dioxide Level 28.4 mmol/L Anion Gap 12.3 Blood Urea Nitrogen 42 mg/dL Creatinine 0.98 mg/dL Estimated GFR () 70.3 Est GFR (CKD-EPI)(Non-Afr Uzbek) 58.1 BUN/Creatinine Ratio 42.0 Glucose Level 192 mg/dL Calcium Level 9.1 mg/dL Total Bilirubin 0.4 mg/dL Aspartate Amino Transf (AST/SGOT) 37 U/L Alanine Aminotransferase (ALT/SGPT) 78 U/L Alkaline Phosphatase 55 U/L Total Protein 6.4 g/dL Albumin 2.6 g/dL Globulin 3.8 Albumin/Globulin Ratio 0.684 Differential Total Cells Counted 100 #CELLS Segmented Neutrophils 88 % Band Neutrophils 1 % Lymphocytes 3 % Monocytes 7 % Metamyelocytes 1 % Platelet Estimate INCREASED Platelet Morphology NORMAL Blood Morphology Comment NORMAL MORPHOLOGY Test 06/08/20 08:05 Bedside Glucose 175 Current Medications Medications (Trade) Dose Ordered Sig/Stas PRN Reason Start Time Stop Time Status Last Admin Acetaminophen (Tylenol) 1,000 mg Q6H PRN PAIN 1 - 3 06/05/20 15:30 07/05/20 15:29 06/07/20 20:32 Ascorbic Acid (Vitamin C) 500 mg BID 06/05/20 21:00 07/05/20 20:59 06/08/20 09:49 Azithromycin 500 mg/Sodium Chloride 250 ml @ 175 mls/hr Q24HRS 06/05/20 20:00 07/05/20 19:59 06/07/20 20:30 Ceftriaxone Sodium 1000 mg/ Sodium Chloride 100 ml @ 100 mls/hr Q24HRS 06/06/20 13:00 07/06/20 12:59 06/07/20 12:56 Dextrose (Dextrose 50%-Water Syringe) 25 ml STAT PRN HYPOGLYCEMIA 06/05/20 15:30 07/05/20 15:29 Enoxaparin Sodium (Lovenox) 40 mg Q24HRS 06/08/20 12:30 07/08/20 12:29 06/08/20 12:26 Famotidine (Pepcid) 20 mg BID 06/05/20 21:00 07/05/20 20:59 06/08/20 09:49 Furosemide (Lasix) 20 mg STAT 06/05/20 16:00 07/05/20 15:59 06/05/20 22:09 Gabapentin (Neurontin) 600 mg BID 06/05/20 21:00 07/05/20 20:59 06/08/20 09:50 Guaifenesin (Mucinex) 1,200 mg BID 06/05/20 21:00 07/05/20 20:59 06/08/20 09:50 Hydrochlorothiazide (Hydrochlorothiazide) 12.5 mg DAILY 06/06/20 09:00 07/06/20 08:59 06/07/20 09:29 Insulin Glargine (Lantus) 10 unit HS 06/05/20 21:00 07/05/20 20:59 06/07/20 20:08 Insulin Human Lispro (Humalog) 0-140 0 Units 141-200... ACHS 06/05/20 17:30 07/05/20 17:29 06/08/20 11:30 Losartan Potassium (Cozaar) 100 mg DAILY 06/06/20 09:00 07/06/20 08:59 06/07/20 09:29 Morphine Sulfate (Morphine Sulfate) 2 mg Q4H PRN PAIN 7 - 10 06/05/20 15:30 07/05/20 15:29 Remdesivir 100 mg/ Sodium Chloride 120 ml @ 111.111 mls/hr Q24HRS 06/06/20 15:00 06/09/20 16:05 06/07/20 15:11 Zolpidem Tartrate (Ambien) 5 mg HS PRN INSOMNIA 06/05/20 15:30 07/05/20 15:29 06/07/20 20:32 LEVEL 1 SEPSIS INFECTION CRITE: ABX Therapy, Cough/Shortness of Breath LEVEL 2-SIRS (LIST ALL THAT AP: None/Not assessed Cardiovascular Evidence: Not Assessed or None Hematologic Evidence: None/Not assessed Hepatic Evidence: None/Not assessed Metabolic Evidence: None/Not assessed Neurological Evidence: None/Not assessed Respiratory Evidence: Need for O2 to keep>90%, O2 SAT<90room air Renal Evidence: None/Not assessed O2 Sat by Pulse Oximetry: 90 Oxygen Flow Rate: 15.00 Assessment/Plan Assessment/Plan Assessment/Plan ICD Code: J18.9 - Pneumonia, unspecified organism Improving, continue current management with Combination of remdesivir, azithromycin, vitamin C, collapsing, Lovenox, and IS. ICD Code: U07.1 - COVID-19 Improving, continue current management with medication, O2 and IS. ICD Code: I10 - Essential (primary) hypertension Stable, continue current management CHRISTIANNE MENDEZ MD Jun 08, 2020 15:00
[2020-06-08] MEDS: REMDESIVIR (EUA) 100 MG in NS 100ML 100 ML IV SCH (16:00)
[2020-06-08 16:27] VITALS: BP 128/59
[2020-06-08] MEDS: ROCEPHIN 1,000 MG in NS 100ML 100 ML IV SCH (17:00)
[2020-06-08 19:57] VITALS: BP 100/45
[2020-06-08] MEDS: ZITHROMAX 500 MG in NS 250ML 250 ML IV SCH (20:00)
[2020-06-08] MEDS: LANTUS SQ SCH (20:57)
[2020-06-08] MEDS: AMBIEN PO PRN (21:00)
[2020-06-09] VITALS (7 sets, daily range): BP systolic 114–143; BP diastolic 53–66
[2020-06-09 06:24] LABS: BASOPHIL % 0.1 % (0.0-0.2); LYMPHOCYTES # 0.47 10^3/uL1 (1.0-4.8); LYMPHOCYTES % 2.7 % (24.0-44.0); MEAN CORP HGB 29.3 pg (26-34); MONOCYTES # 0.9 10^3/uL (0.3-0.8); MONOCYTES % 5.1 % (5.0-12.0); NEUTROPHIL # 15.4 10^3/uL (1.8-7.7); RED CELL DISTRIBUTION WIDTH 12.7 % (11.5-14.5)
[2020-06-09 06:40] LABS: CALCIUM 8.6 mg/dL (8.4-10.5); CARBON DIOXIDE 26.5 mmol/L (20.0-32)
[2020-06-09] MEDS: HUMALOG SQ SCH ×4 (08:11→20:59)
[2020-06-09] MEDS: HYDROCHLOROTHIAZIDE PO SCH (09:00)
[2020-06-09] MEDS: COZAAR PO SCH (09:00)
[2020-06-09] MEDS: MUCINEX PO SCH ×2 (09:18→21:14)
[2020-06-09] MEDS: NEURONTIN PO SCH ×2 (09:18→21:13)
[2020-06-09] MEDS: DEXAMETHASONE 10 MG/ML VIAL IV SCH ×2 (09:18→21:14)
[2020-06-09] MEDS: VITAMIN C PO SCH ×2 (09:19→21:14)
[2020-06-09] MEDS: PEPCID PO SCH ×2 (09:19→21:13)
--- NOTE | 2020-06-09 11:18 | NUR ---
BS is 269mg/dl instead of 268mg/dl
--- NOTE | 2020-06-09 11:37 | PRM.PN ---
Subjective Subjective Date: Jun 09, 2020 Time: 11:37 Subjective Evaluated patient at the bedside she is sitting up in a chair on 6 L nasal cannula at this time 93% oxygen saturation informed her that we have accepted her for transfer from [facility] to the ICU here. She acknowledges the risk of transfer and that the patient could possibly not survive the transport. She would like the opportunity to see him in the ICU if she can as his prognosis is poor at this point he is a DNR. Patient expressed gratitude for willingness to allow her to be with her at what may be the end of his life Patient History: Alzheimer's disease 33 FATHER, , Age:73 Chronic obstructive pulmonary disease G8 BROTHER FH: diverticulitis Hypertension 32 MOTHER, , Age:72 No known health problems G8 BROTHER (BRAIN INJURY FROM ELECTRICAL ACCIDENT) G8 SISTER V19 CHILD V19 CHILD V19 CHILD V19 CHILD No Family History of: Asthma Cerebrovascular disorder Congestive heart failure Diabetes insipidus Diabetes mellitus Parkinson's disease VTE VTE Risk Total Score: 0 VTE Risk Score VTE Risk: Score 0-1 = Low Risk (Aggressive mobilization; early ambulation; no VTE prophylaxis required) Score 2: Moderate Risk (Intermittent/Pneumatic Compression Device OR Lovenox/Heparin/Coumadin) Score 3-4: High Risk (Intermittent/Pneumatic Compression Device AND Lovenox/Heparin/Coumadin) Score > or =5: Highest Risk (Intermittent/Pneumatic Compression Device AND Lovenox/Heparin/Coumadin) Antico:Hep/LMWH/Coum/Xarelto: Yes Review of Systems Constitutional: No: Fever, Chills, Sweats, Weakness, Malaise Eyes: No: Pain, Vision change, Conjunctivae inflammation, Eyelid inflammation ENT: Other; No: Nose pain, Nose discharge, Nose congestion, Mouth pain, Mouth swelling, Throat pain, Throat swelling Respiratory: Cough, Shortness of breath, Sputum Cardiovascular: No: Chest Pain, Palpitations, Orthopnea, Paroxysmal Noc. Dyspnea, Edema Gastrointestinal: No: Nausea, Vomiting, Abdominal Pain Genitourinary: No Dysuria, No Frequency, No Incontinence, No Hematuria, No Retention Musculoskeletal: other; No: neck pain, shoulder pain, arm pain, back pain, hand pain, leg pain, foot pain Neurological: No: Weakness, Numbness Allergies: Coded Allergies: No Known Drug Allergies (Verified Allergy, Unknown, 06/03/20) Scheduled Dulaglutide (Trulicity), 0.75 MG SQ Q7D, (Reported) Gabapentin (Neurontin), 600 MG PO BID, (Reported) Olmesartan/Hydrochlorothiazide (Benicar Hct 20-12.5 Mg Tablet), 1 TAB PO DAILY, (Reported) Objective Vitals and I/O Vital Sign - Last 24 Hours 06/08/20 06/08/20 06/08/20 06/08/20 12:08 16:27 18:35 19:57 Temp 98.0 98.3 98.5 Pulse 67 73 89 Resp B/P (MAP) 134/62 (86) 128/59 (82) 100/45 (63) Pulse Ox 90 92 90 O2 Delivery Nasal Cannula O2 Flow Rate 6.00 06/08/20 06/08/20 06/09/20 06/09/20 20:32 21:44 00:40 04:26 Temp 98.0 98.1 Pulse 73 72 79 Resp B/P (MAP) 114/54 (74) 141/63 (89) Pulse Ox 90 91 90 O2 Delivery Nasal Cannula Nasal Cannula O2 Flow Rate 6.00 6.00 FiO2 44 06/09/20 06/09/20 06/09/20 06/09/20 08:33 08:36 09:00 09:00 Temp 97.9 Pulse 64 Resp 21 B/P (MAP) 137/59 (85) 99/50 99/50 Pulse Ox 90 O2 Delivery Nasal Cannula O2 Flow Rate 6.00 06/09/20 09:35 Pulse 64 Resp 22 Pulse Ox 90 O2 Delivery Nasal Cannula O2 Flow Rate 7.00 FiO2 44 Intake and Output 06/09/20 07:00 Intake Total 120 ml Balance 120 ml General: Alert, Oriented X3, Cooperative, mild distress HEENT: Atraumatic, Mucous membr. moist/pink Neck: Supple Lungs: Normal air movement, Other (Fine crackles at the bases) Heart: Regular rate, No murmurs, Gallops, Rubs Abdomen: Normal bowel sounds, Soft, No tenderness Skin: No rashes, No significant lesion Neuro: Normal speech, Strength at 5/5 X4 ext, Normal tone, Cranial nerves 3-12 NL Psych/Mental Status: Mental status NL, Mood NL All Results(Lab/Rad) Laboratory Tests Test 06/07/20 15:00 06/07/20 19:50 06/08/20 04:35 06/08/20 05:47 Bedside Glucose 173 260 163 White Blood Count 16.3 10^3/uL Red Blood Count 4.42 10^6/uL Hemoglobin 13.2 g/dL Hematocrit 38.3 % Mean Corpuscular Volume 86.7 fL Mean Corpuscular Hemoglobin 29.9 pg Mean Corpuscular Hemoglobin Concent 34.5 g/dL Red Cell Distribution Width 12.7 % Platelet Count 402 10^3/uL Mean Platelet Volume 9.8 fL Neutrophils (%) (Auto) 87.2 % Lymphocytes (%) (Auto) 3.7 % Monocytes (%) (Auto) 4.7 % Neutrophils # (Auto) 14.2 10^3/uL Lymphocytes # (Auto) 0.60 10^3/uL1 Monocytes # (Auto) 0.8 10^3/uL Absolute Immature Granulocyte (auto 0.70 10^3 u/L Absolute Eosinophils (auto) 0.0 10^3/uL Immature Granulocytes % 4.30 % Eosinophils % 0.0 % Basophils % 0.1 % Basophils # 0.0 10^3/uL Sodium Level 141 mmol/L Potassium Level 3.7 mmol/L Chloride Level 104.0 mmol/L Carbon Dioxide Level 28.4 mmol/L Anion Gap 12.3 Blood Urea Nitrogen 42 mg/dL Creatinine 0.98 mg/dL Estimated GFR () 70.3 Est GFR (CKD-EPI)(Non-Afr [facility]) 58.1 BUN/Creatinine Ratio 42.0 Glucose Level 192 mg/dL Calcium Level 9.1 mg/dL Total Bilirubin 0.4 mg/dL Aspartate Amino Transf (AST/SGOT) 37 U/L Alanine Aminotransferase (ALT/SGPT) 78 U/L Alkaline Phosphatase 55 U/L Total Protein 6.4 g/dL Albumin 2.6 g/dL Globulin 3.8 Albumin/Globulin Ratio 0.684 Test 06/08/20 07:03 06/08/20 08:05 Differential Total Cells Counted 100 #CELLS Segmented Neutrophils 88 % Band Neutrophils 1 % Lymphocytes 3 % Monocytes 7 % Metamyelocytes 1 % Platelet Estimate INCREASED Platelet Morphology NORMAL Blood Morphology Comment NORMAL MORPHOLOGY Bedside Glucose 175 Current Medications Medications (Trade) Dose Ordered Sig/Stas Route PRN Reason Start Time Stop Time Status Last Admin Dose Admin Ceftriaxone Sodium 1000 mg/ Sodium Chloride 100 ml @ 100 mls/hr STAT STAT IV 06/05/20 12:28 06/05/20 15:44 DC 06/05/20 12:56 Lorazepam (Ativan) 1 mg STAT STAT IV 06/05/20 12:33 06/05/20 15:44 DC 06/05/20 12:56 Ceftriaxone Sodium (Rocephin) 1,000 mg STK-MED ONCE .ROUTE 06/05/20 12:32 06/05/20 12:35 DC Enoxaparin Sodium (Lovenox) 90 mg STAT STAT SQ 06/05/20 13:39 06/05/20 13:41 DC Enoxaparin Sodium (Lovenox) 90 mg STAT STAT SQ 06/05/20 13:42 06/05/20 13:44 DC 06/05/20 14:15 Enoxaparin Sodium (Lovenox) 100 mg STK-MED ONCE SQ 06/05/20 13:42 06/05/20 13:44 DC Ceftriaxone Sodium 1000 mg/ Sodium Chloride 100 ml @ 100 mls/hr Q24HRS IV 06/06/20 13:00 07/06/20 12:59 06/07/20 12:56 Acetaminophen (Tylenol) 1,000 mg Q6H PRN PO PAIN 1 - 3 06/05/20 15:30 07/05/20 15:29 06/07/20 20:32 Zolpidem Tartrate (Ambien) 5 mg HS PRN PO INSOMNIA 06/05/20 15:30 07/05/20 15:29 06/07/20 20:32 Morphine Sulfate (Morphine Sulfate) 2 mg Q4H PRN IV PAIN 7 - 10 06/05/20 15:30 07/05/20 15:29 Insulin Human Lispro (Humalog) 0-140 0 Units 141-200... ACHS SQ 06/05/20 17:30 07/05/20 17:29 06/08/20 11:30 Dextrose (Dextrose 50%-Water Syringe) 25 ml STAT PRN IV HYPOGLYCEMIA 06/05/20 15:30 07/05/20 15:29 Guaifenesin (Mucinex) 1,200 mg BID PO 06/05/20 21:00 07/05/20 20:59 06/08/20 09:50 Zinc Sulfate (Zinc Sulfate) 220 mg STAT STAT PO 06/05/20 15:37 06/05/20 15:47 DC 06/05/20 17:31 Azithromycin 500 mg/Sodium Chloride 250 ml @ 175 mls/hr Q24HRS IV 06/05/20 16:00 06/05/20 17:50 DC Furosemide (Lasix) 20 mg STAT IV 06/05/20 16:00 07/05/20 15:59 06/05/20 22:09 Ascorbic Acid (Vitamin C) 500 mg BID PO 06/05/20 21:00 07/05/20 20:59 06/08/20 09:49 Insulin Glargine (Lantus) 10 unit HS SQ 06/05/20 21:00 07/05/20 20:59 06/07/20 20:08 Remdesivir 200 mg/ Sodium Chloride 140 ml @ 120.69 mls/ hr OT STAT IV 06/05/20 15:37 06/05/20 16:46 DC 06/05/20 17:31 Famotidine (Pepcid) 20 mg BID PO 06/05/20 21:00 07/05/20 20:59 06/08/20 09:49 Enoxaparin Sodium (Lovenox) 80 mg BID SQ 06/05/20 21:00 06/07/20 12:14 DC 06/07/20 09:29 Gabapentin (Neurontin) 600 mg BID PO 06/05/20 21:00 07/05/20 20:59 06/08/20 09:50 Losartan Potassium (Cozaar) 100 mg DAILY PO 06/06/20 09:00 07/06/20 08:59 06/07/20 09:29 Hydrochlorothiazide (Hydrochlorothiazide) 12.5 mg DAILY PO 06/06/20 09:00 07/06/20 08:59 06/07/20 09:29 Zinc Sulfate (Zinc Sulfate) 220 mg STK-MED ONCE .ROUTE 06/05/20 17:08 06/05/20 17:11 DC Azithromycin 500 mg/Sodium Chloride 250 ml @ 175 mls/hr Q24HRS IV 06/05/20 20:00 07/05/20 19:59 06/07/20 20:30 Sodium Chloride 250 ml @ ud STK-MED ONCE IV 06/05/20 20:50 06/05/20 20:52 DC Sodium Chloride 500 ml @ ud STK-MED ONCE IV 06/06/20 00:24 06/06/20 00:26 DC Remdesivir 100 mg/ Sodium Chloride 120 ml @ 111.111 mls/hr Q24HRS IV 06/06/20 15:00 06/09/20 16:05 06/07/20 15:11 Enoxaparin Sodium (Lovenox) 40 mg Q24HRS SQ 06/08/20 12:30 07/08/20 12:29 06/08/20 12:26 Course Sepsis Screening Results: Posi: NEGATIVE Sepsis Qualifier/Stage: NO DEFINITE RISK Duration or Total Time Spent w: 15 min Vitals & review Data Vital Sign - Last 24 Hours 06/07/20 06/07/20 06/07/20 06/07/20 16:58 19:19 21:33 23:40 Temp 98.1 98.0 98.1 Pulse 53 62 76 Resp 19 18 18 B/P (MAP) 137/65 (89) 115/57 (76) 132/61 (84) Pulse Ox 93 95 97 O2 Delivery Non-Rebreather O2 Flow Rate 15.00 06/08/20 06/08/20 06/08/20 06/08/20 04:08 08:38 09:00 09:00 Temp 98.2 97.1 Pulse 82 66 Resp 18 19 B/P (MAP) 136/67 (90) 114/52 (72) 114/52 114/52 Pulse Ox 96 90 O2 Delivery Comfort Flow O2 Flow Rate 15.00 06/08/20 12:08 Temp 98.0 Pulse 67 Resp 20 B/P (MAP) 134/62 (86) Pulse Ox 90 Laboratory Tests Test 06/06/20 16:19 06/06/20 20:18 06/07/20 04:57 06/07/20 07:45 Bedside Glucose 203 216 169 165 Test 06/07/20 08:25 06/07/20 09:12 06/07/20 11:06 06/07/20 15:00 White Blood Count 13.4 10^3/uL Red Blood Count 4.77 10^6/uL Hemoglobin 14.0 g/dL Hematocrit 42.5 % Mean Corpuscular Volume 89.1 fL Mean Corpuscular Hemoglobin 29.4 pg Mean Corpuscular Hemoglobin Concent 32.9 g/dL Red Cell Distribution Width 13.0 % Platelet Count 348 10^3/uL Mean Platelet Volume 9.8 fL Neutrophils (%) (Auto) 83.5 % Lymphocytes (%) (Auto) 6.3 % Monocytes (%) (Auto) 5.3 % Neutrophils # (Auto) 11.2 10^3/uL Lymphocytes # (Auto) 0.85 10^3/uL1 Monocytes # (Auto) 0.7 10^3/uL Absolute Immature Granulocyte (auto 0.64 10^3 u/L Absolute Eosinophils (auto) 0.0 10^3/uL Immature Granulocytes % 4.80 % Eosinophils % 0.0 % Basophils % 0.1 % Basophils # 0.0 10^3/uL Sodium Level 141 mmol/L Potassium Level 3.5 mmol/L Chloride Level 103.0 mmol/L Carbon Dioxide Level 29.5 mmol/L Anion Gap 12.0 Blood Urea Nitrogen 45 mg/dL Creatinine 0.96 mg/dL Estimated GFR () 72.0 Est GFR (CKD-EPI)(Non-Afr [facility]) 59.5 BUN/Creatinine Ratio 46.0 Glucose Level 194 mg/dL Calcium Level 9.2 mg/dL Total Bilirubin 0.4 mg/dL Aspartate Amino Transf (AST/SGOT) 84 U/L Alanine Aminotransferase (ALT/SGPT) 96 U/L Alkaline Phosphatase 62 U/L Total Protein 6.9 g/dL Albumin 2.8 g/dL Globulin 4.1 Albumin/Globulin Ratio 0.682 Differential Total Cells Counted 100 #CELLS Segmented Neutrophils 81 % Band Neutrophils 2 % Lymphocytes 9 % Monocytes 5 % Metamyelocytes 1 % Myelocytes 1 % Toxic Granulation 1+ Platelet Estimate ADEQUATE Platelet Morphology NORMAL Blood Morphology Comment NORMAL MORPHOLOGY Bedside Glucose 178 173 Test 06/07/20 19:50 06/08/20 04:35 06/08/20 05:47 06/08/20 07:03 Bedside Glucose 260 163 White Blood Count 16.3 10^3/uL Red Blood Count 4.42 10^6/uL Hemoglobin 13.2 g/dL Hematocrit 38.3 % Mean Corpuscular Volume 86.7 fL Mean Corpuscular Hemoglobin 29.9 pg Mean Corpuscular Hemoglobin Concent 34.5 g/dL Red Cell Distribution Width 12.7 % Platelet Count 402 10^3/uL Mean Platelet Volume 9.8 fL Neutrophils (%) (Auto) 87.2 % Lymphocytes (%) (Auto) 3.7 % Monocytes (%) (Auto) 4.7 % Neutrophils # (Auto) 14.2 10^3/uL Lymphocytes # (Auto) 0.60 10^3/uL1 Monocytes # (Auto) 0.8 10^3/uL Absolute Immature Granulocyte (auto 0.70 10^3 u/L Absolute Eosinophils (auto) 0.0 10^3/uL Immature Granulocytes % 4.30 % Eosinophils % 0.0 % Basophils % 0.1 % Basophils # 0.0 10^3/uL Sodium Level 141 mmol/L Potassium Level 3.7 mmol/L Chloride Level 104.0 mmol/L Carbon Dioxide Level 28.4 mmol/L Anion Gap 12.3 Blood Urea Nitrogen 42 mg/dL Creatinine 0.98 mg/dL Estimated GFR () 70.3 Est GFR (CKD-EPI)(Non-Afr [facility]) 58.1 BUN/Creatinine Ratio 42.0 Glucose Level 192 mg/dL Calcium Level 9.1 mg/dL Total Bilirubin 0.4 mg/dL Aspartate Amino Transf (AST/SGOT) 37 U/L Alanine Aminotransferase (ALT/SGPT) 78 U/L Alkaline Phosphatase 55 U/L Total Protein 6.4 g/dL Albumin 2.6 g/dL Globulin 3.8 Albumin/Globulin Ratio 0.684 Differential Total Cells Counted 100 #CELLS Segmented Neutrophils 88 % Band Neutrophils 1 % Lymphocytes 3 % Monocytes 7 % Metamyelocytes 1 % Platelet Estimate INCREASED Platelet Morphology NORMAL Blood Morphology Comment NORMAL MORPHOLOGY Test 06/08/20 08:05 Bedside Glucose 175 Current Medications Medications (Trade) Dose Ordered Sig/Stas PRN Reason Start Time Stop Time Status Last Admin Acetaminophen (Tylenol) 1,000 mg Q6H PRN PAIN 1 - 3 06/05/20 15:30 07/05/20 15:29 06/07/20 20:32 Ascorbic Acid (Vitamin C) 500 mg BID 06/05/20 21:00 07/05/20 20:59 06/08/20 09:49 Azithromycin 500 mg/Sodium Chloride 250 ml @ 175 mls/hr Q24HRS 06/05/20 20:00 07/05/20 19:59 06/07/20 20:30 Ceftriaxone Sodium 1000 mg/ Sodium Chloride 100 ml @ 100 mls/hr Q24HRS 06/06/20 13:00 07/06/20 12:59 06/07/20 12:56 Dextrose (Dextrose 50%-Water Syringe) 25 ml STAT PRN HYPOGLYCEMIA 06/05/20 15:30 07/05/20 15:29 Enoxaparin Sodium (Lovenox) 40 mg Q24HRS 06/08/20 12:30 07/08/20 12:29 06/08/20 12:26 Famotidine (Pepcid) 20 mg BID 06/05/20 21:00 07/05/20 20:59 06/08/20 09:49 Furosemide (Lasix) 20 mg STAT 06/05/20 16:00 07/05/20 15:59 06/05/20 22:09 Gabapentin (Neurontin) 600 mg BID 06/05/20 21:00 07/05/20 20:59 06/08/20 09:50 Guaifenesin (Mucinex) 1,200 mg BID 06/05/20 21:00 07/05/20 20:59 06/08/20 09:50 Hydrochlorothiazide (Hydrochlorothiazide) 12.5 mg DAILY 06/06/20 09:00 07/06/20 08:59 06/07/20 09:29 Insulin Glargine (Lantus) 10 unit HS 06/05/20 21:00 07/05/20 20:59 06/07/20 20:08 Insulin Human Lispro (Humalog) 0-140 0 Units 141-200... ACHS 06/05/20 17:30 07/05/20 17:29 06/08/20 11:30 Losartan Potassium (Cozaar) 100 mg DAILY 06/06/20 09:00 07/06/20 08:59 06/07/20 09:29 Morphine Sulfate (Morphine Sulfate) 2 mg Q4H PRN PAIN 7 - 10 06/05/20 15:30 07/05/20 15:29 Remdesivir 100 mg/ Sodium Chloride 120 ml @ 111.111 mls/hr Q24HRS 06/06/20 15:00 06/09/20 16:05 06/07/20 15:11 Zolpidem Tartrate (Ambien) 5 mg HS PRN INSOMNIA 06/05/20 15:30 07/05/20 15:29 06/07/20 20:32 LEVEL 1 SEPSIS INFECTION CRITE: ABX Therapy LEVEL 2-SIRS (LIST ALL THAT AP: None/Not assessed Cardiovascular Evidence: Not Assessed or None Hematologic Evidence: None/Not assessed Hepatic Evidence: None/Not assessed Metabolic Evidence: None/Not assessed Neurological Evidence: None/Not assessed Respiratory Evidence: None/Not assessed Renal Evidence: None/Not assessed O2 Sat by Pulse Oximetry: 90 Oxygen Flow Rate: 7.00 Assessment/Plan Assessment/Plan Assessment/Plan ICD Code: J18.9 - Pneumonia, unspecified organism Improving, continue current management with Combination of remdesivir, azithromycin, vitamin C, dexamethasone, Lovenox, and IS. ICD Code: U07.1 - COVID-19 Improving, continue current management with medication, O2 and IS. ICD Code: I10 - Essential (primary) hypertension Stable, continue current management Enoxaparin for VTE/DVT PPX Pepcid for GI PPX Full code BALJINDER MARTINEZ MD Jun 09, 2020 11:37
[2020-06-09] MEDS: LOVENOX SQ SCH ×2 (12:17→21:00)
[2020-06-09] MEDS: REMDESIVIR (EUA) 100 MG in NS 100ML 100 ML IV SCH (15:59)
[2020-06-09] MEDS: ROCEPHIN 1,000 MG in NS 100ML 100 ML IV SCH (15:59)
[2020-06-09] MEDS: ZITHROMAX 500 MG in NS 250ML 250 ML IV SCH (20:23)
[2020-06-09] MEDS: LANTUS SQ SCH (20:59)
[2020-06-09] MEDS: AMBIEN PO PRN (21:13)
--- NOTE | 2020-06-09 22:57 | NUR ---
Pt. to wheelchair to go visit with in ICU. Vi, hotel recreational facilities manager, called ICU hotel recreational facilities manager to let her know that pt. was coming.
--- NOTE | 2020-06-10 00:41 | NUR ---
Returned pt. to her room via wheelchair. No c/o pain or s/sx of distress. Pt. back to bed. Will continue to monitor.
[2020-06-10 04:30] VITALS: BP 133/62
[2020-06-10 06:30] LABS: BASOPHIL % 0.2 % (0.0-0.2); LYMPHOCYTES # 0.47 10^3/uL1 (1.0-4.8); LYMPHOCYTES % 2.5 % (24.0-44.0); MEAN CORP HGB 29.7 pg (26-34); MONOCYTES # 0.7 10^3/uL (0.3-0.8); NEUTROPHIL # 16.7 10^3/uL (1.8-7.7); NEUTROPHILS % 90.1 % (41.0-85.0); PLATELET COUNT 382 10^3/uL (150-400); RED CELL DISTRIBUTION WIDTH 12.8 % (11.5-14.5)
[2020-06-10 07:52] LABS: CALCIUM 8.7 mg/dL (8.4-10.5); CARBON DIOXIDE 24.8 mmol/L (20.0-32)
[2020-06-10] MEDS: HUMALOG SQ SCH ×4 (08:19→21:00)
[2020-06-10 08:49] VITALS: BP 135/62
[2020-06-10] MEDS: VITAMIN C PO SCH ×2 (08:51→21:00)
[2020-06-10] MEDS: NEURONTIN PO SCH ×2 (08:51→21:00)
[2020-06-10] MEDS: COZAAR PO SCH ×2 (08:52→21:00)
[2020-06-10] MEDS: DEXAMETHASONE 10 MG/ML VIAL IV SCH ×2 (08:52→21:00)
[2020-06-10] MEDS: MUCINEX PO SCH ×2 (08:53→21:00)
[2020-06-10] MEDS: HYDROCHLOROTHIAZIDE PO SCH ×2 (08:53→21:00)
[2020-06-10] MEDS: PEPCID PO SCH ×2 (08:53→21:00)
[2020-06-10] MEDS: LOVENOX SQ SCH (12:26)
[2020-06-10 12:48] VITALS: BP 108/49
[2020-06-10] MEDS: ROCEPHIN 1,000 MG in NS 100ML 100 ML IV SCH (17:03)
[2020-06-10 18:31] VITALS: BP 105/48
--- NOTE | 2020-06-10 19:57 | PRM.PN ---
Subjective Subjective Date: Jun 10, 2020 Time: 19:57 Subjective Patient is still on 5-6 liters NC, but has been able to able to travel by wheel chair to visit her who is now here in the ICU intubated as a transfer from [place], she understands that his prognosis is very poor and has agreed to DNR status. She still holds out hope for his recovery as we attempt to improve his kidney function and ween him off the ventilator, although she knows his chances of recovery are low. She is very thankful that we were able to accept her here so that she could see him and be more immediately involved in his care. Patient History: Alzheimer's disease 33 FATHER, , Age:73 Chronic obstructive pulmonary disease G8 BROTHER FH: diverticulitis Hypertension 32 MOTHER, , Age:72 No known health problems G8 BROTHER (BRAIN INJURY FROM ELECTRICAL ACCIDENT) G8 SISTER V19 CHILD V19 CHILD V19 CHILD V19 CHILD No Family History of: Asthma Cerebrovascular disorder Congestive heart failure Diabetes insipidus Diabetes mellitus Parkinson's disease VTE VTE Risk Total Score: 0 VTE Risk Score VTE Risk: Score 0-1 = Low Risk (Aggressive mobilization; early ambulation; no VTE prophylaxis required) Score 2: Moderate Risk (Intermittent/Pneumatic Compression Device OR Lovenox/Heparin/Coumadin) Score 3-4: High Risk (Intermittent/Pneumatic Compression Device AND Lovenox/Heparin/Coumadin) Score > or =5: Highest Risk (Intermittent/Pneumatic Compression Device AND Lovenox/Heparin/Coumadin) Review of Systems Constitutional: No: Fever, Chills, Sweats, Weakness, Malaise Eyes: No: Pain, Vision change, Conjunctivae inflammation, Eyelid inflammation ENT: Other; No: Nose pain, Mouth pain, Mouth swelling, Throat pain, Throat swelling Respiratory: Cough, Shortness of breath Cardiovascular: No: Chest Pain, Palpitations, Orthopnea, Paroxysmal Noc. Dyspnea, Edema Gastrointestinal: No: Nausea, Vomiting, Abdominal Pain Genitourinary: No Dysuria, No Frequency, No Incontinence, No Hematuria, No Retention Musculoskeletal: other; No: neck pain, shoulder pain, arm pain, back pain, hand pain, leg pain, foot pain Neurological: No: Weakness, Numbness Allergies: Coded Allergies: No Known Drug Allergies (Verified Allergy, Unknown, 06/03/20) Scheduled Dulaglutide (Trulicity), 0.75 MG SQ Q7D, (Reported) Gabapentin (Neurontin), 600 MG PO BID, (Reported) Olmesartan/Hydrochlorothiazide (Benicar Hct 20-12.5 Mg Tablet), 1 TAB PO DAILY, (Reported) Objective Vitals and I/O Vital Sign - Last 24 Hours 06/09/20 06/09/20 06/09/20 06/09/20 20:17 20:50 22:13 22:59 Temp 98.6 97.9 Pulse 72 68 62 Resp 20 B/P (MAP) 143/66 (91) 128/59 (82) Pulse Ox 93 92 96 O2 Delivery Nasal Canula Nasal Cannula Nasal Cannula Nasal Canula O2 Flow Rate 6.00 6.00 6.00 FiO2 44 06/10/20 06/10/20 06/10/20 06/10/20 04:30 08:49 08:52 08:53 Temp 97.8 97.5 Pulse 73 72 Resp B/P (MAP) 133/62 (85) 135/62 (86) 135/62 135/62 Pulse Ox 92 90 O2 Delivery Nasal [place]ula O2 Flow Rate 6.00 06/10/20 06/10/20 06/10/20 06/10/20 09:45 10:53 12:48 18:31 Temp 97.7 97.9 Pulse 72 66 73 Resp B/P (MAP) 108/49 (68) 105/48 (67) Pulse Ox 93 91 90 O2 Delivery Nasal Cannula Nasal Cannula O2 Flow Rate 6.00 6.00 FiO2 36 Intake and Output 06/10/20 07:00 Intake Total 1340 ml Balance 1340 ml General: Alert, Oriented X3, Cooperative, mild distress HEENT: Atraumatic, Mucous membr. moist/pink Neck: Supple Lungs: Clear to auscultation, Normal air movement Heart: Regular rate, No murmurs, Gallops, Rubs Abdomen: Normal bowel sounds, Soft, No tenderness Skin: No rashes, No significant lesion Neuro: Normal speech, Strength at 5/5 X4 ext, Normal tone, Cranial nerves 3-12 NL Psych/Mental Status: Mental status NL, Mood NL All Results(Lab/Rad) Laboratory Tests Test 06/07/20 15:00 06/07/20 19:50 06/08/20 04:35 06/08/20 05:47 Bedside Glucose 173 260 163 White Blood Count 16.3 10^3/uL Red Blood Count 4.42 10^6/uL Hemoglobin 13.2 g/dL Hematocrit 38.3 % Mean Corpuscular Volume 86.7 fL Mean Corpuscular Hemoglobin 29.9 pg Mean Corpuscular Hemoglobin Concent 34.5 g/dL Red Cell Distribution Width 12.7 % Platelet Count 402 10^3/uL Mean Platelet Volume 9.8 fL Neutrophils (%) (Auto) 87.2 % Lymphocytes (%) (Auto) 3.7 % Monocytes (%) (Auto) 4.7 % Neutrophils # (Auto) 14.2 10^3/uL Lymphocytes # (Auto) 0.60 10^3/uL1 Monocytes # (Auto) 0.8 10^3/uL Absolute Immature Granulocyte (auto 0.70 10^3 u/L Absolute Eosinophils (auto) 0.0 10^3/uL Immature Granulocytes % 4.30 % Eosinophils % 0.0 % Basophils % 0.1 % Basophils # 0.0 10^3/uL Sodium Level 141 mmol/L Potassium Level 3.7 mmol/L Chloride Level 104.0 mmol/L Carbon Dioxide Level 28.4 mmol/L Anion Gap 12.3 Blood Urea Nitrogen 42 mg/dL Creatinine 0.98 mg/dL Estimated GFR () 70.3 Est GFR (CKD-EPI)(Non-Afr Polish) 58.1 BUN/Creatinine Ratio 42.0 Glucose Level 192 mg/dL Calcium Level 9.1 mg/dL Total Bilirubin 0.4 mg/dL Aspartate Amino Transf (AST/SGOT) 37 U/L Alanine Aminotransferase (ALT/SGPT) 78 U/L Alkaline Phosphatase 55 U/L Total Protein 6.4 g/dL Albumin 2.6 g/dL Globulin 3.8 Albumin/Globulin Ratio 0.684 Test 06/08/20 07:03 06/08/20 08:05 Differential Total Cells Counted 100 #CELLS Segmented Neutrophils 88 % Band Neutrophils 1 % Lymphocytes 3 % Monocytes 7 % Metamyelocytes 1 % Platelet Estimate INCREASED Platelet Morphology NORMAL Blood Morphology Comment NORMAL MORPHOLOGY Bedside Glucose 175 Current Medications Medications (Trade) Dose Ordered Sig/Stas Route PRN Reason Start Time Stop Time Status Last Admin Dose Admin Ceftriaxone Sodium 1000 mg/ Sodium Chloride 100 ml @ 100 mls/hr STAT STAT IV 06/05/20 12:28 06/05/20 15:44 DC 06/05/20 12:56 Lorazepam (Ativan) 1 mg STAT STAT IV 06/05/20 12:33 06/05/20 15:44 DC 06/05/20 12:56 Ceftriaxone Sodium (Rocephin) 1,000 mg STK-MED ONCE .ROUTE 06/05/20 12:32 06/05/20 12:35 DC Enoxaparin Sodium (Lovenox) 90 mg STAT STAT SQ 06/05/20 13:39 06/05/20 13:41 DC Enoxaparin Sodium (Lovenox) 90 mg STAT STAT SQ 06/05/20 13:42 06/05/20 13:44 DC 06/05/20 14:15 Enoxaparin Sodium (Lovenox) 100 mg STK-MED ONCE SQ 06/05/20 13:42 06/05/20 13:44 DC Ceftriaxone Sodium 1000 mg/ Sodium Chloride 100 ml @ 100 mls/hr Q24HRS IV 06/06/20 13:00 07/06/20 12:59 06/07/20 12:56 Acetaminophen (Tylenol) 1,000 mg Q6H PRN PO PAIN 1 - 3 06/05/20 15:30 07/05/20 15:29 06/07/20 20:32 Zolpidem Tartrate (Ambien) 5 mg HS PRN PO INSOMNIA 06/05/20 15:30 07/05/20 15:29 06/07/20 20:32 Morphine Sulfate (Morphine Sulfate) 2 mg Q4H PRN IV PAIN 7 - 10 06/05/20 15:30 07/05/20 15:29 Insulin Human Lispro (Humalog) 0-140 0 Units 141-200... ACHS SQ 06/05/20 17:30 07/05/20 17:29 06/08/20 11:30 Dextrose (Dextrose 50%-Water Syringe) 25 ml STAT PRN IV HYPOGLYCEMIA 06/05/20 15:30 07/05/20 15:29 Guaifenesin (Mucinex) 1,200 mg BID PO 06/05/20 21:00 07/05/20 20:59 06/08/20 09:50 Zinc Sulfate (Zinc Sulfate) 220 mg STAT STAT PO 12/3/20 15:37 06/05/20 15:47 DC 06/05/20 17:31 Azithromycin 500 mg/Sodium Chloride 250 ml @ 175 mls/hr Q24HRS IV 06/05/20 16:00 06/05/20 17:50 DC Furosemide (Lasix) 20 mg STAT IV 06/05/20 16:00 07/05/20 15:59 06/05/20 22:09 Ascorbic Acid (Vitamin C) 500 mg BID PO 06/05/20 21:00 07/05/20 20:59 06/08/20 09:49 Insulin Glargine (Lantus) 10 unit HS SQ 06/05/20 21:00 07/05/20 20:59 06/07/20 20:08 Remdesivir 200 mg/ Sodium Chloride 140 ml @ 120.69 mls/ hr OT STAT IV 06/05/20 15:37 06/05/20 16:46 DC 06/05/20 17:31 Famotidine (Pepcid) 20 mg BID PO 06/05/20 21:00 07/05/20 20:59 06/08/20 09:49 Enoxaparin Sodium (Lovenox) 80 mg BID SQ 06/05/20 21:00 06/07/20 12:14 DC 06/07/20 09:29 Gabapentin (Neurontin) 600 mg BID PO 06/05/20 21:00 07/05/20 20:59 06/08/20 09:50 Losartan Potassium (Cozaar) 100 mg DAILY PO 06/06/20 09:00 07/06/20 08:59 06/07/20 09:29 Hydrochlorothiazide (Hydrochlorothiazide) 12.5 mg DAILY PO 06/06/20 09:00 07/06/20 08:59 06/07/20 09:29 Zinc Sulfate (Zinc Sulfate) 220 mg STK-MED ONCE .ROUTE 06/05/20 17:08 06/05/20 17:11 DC Azithromycin 500 mg/Sodium Chloride 250 ml @ 175 mls/hr Q24HRS IV 06/05/20 20:00 07/05/20 19:59 06/07/20 20:30 Sodium Chloride 250 ml @ ud STK-MED ONCE IV 06/05/20 20:50 06/05/20 20:52 DC Sodium Chloride 500 ml @ ud STK-MED ONCE IV 06/06/20 00:24 06/06/20 00:26 DC Remdesivir 100 mg/ Sodium Chloride 120 ml @ 111.111 mls/hr Q24HRS IV 06/06/20 15:00 06/09/20 16:05 06/07/20 15:11 Enoxaparin Sodium (Lovenox) 40 mg Q24HRS SQ 06/08/20 12:30 07/08/20 12:29 06/08/20 12:26 Course Sepsis Screening Results: Posi: NEGATIVE Sepsis Qualifier/Stage: NO DEFINITE RISK Duration or Total Time Spent w: 15 min Vitals & review Data Vital Sign - Last 24 Hours 06/07/20 06/07/20 06/07/20 06/07/20 16:58 19:19 21:33 23:40 Temp 98.1 98.0 98.1 Pulse 53 62 76 Resp 19 18 18 B/P (MAP) 137/65 (89) 115/57 (76) 132/61 (84) Pulse Ox 93 95 97 O2 Delivery Non-Rebreather O2 Flow Rate 15.00 06/08/20 06/08/20 06/08/20 06/08/20 04:08 08:38 09:00 09:00 Temp 98.2 97.1 Pulse 82 66 Resp 18 19 B/P (MAP) 136/67 (90) 114/52 (72) 114/52 114/52 Pulse Ox 96 90 O2 Delivery Comfort Flow O2 Flow Rate 15.00 06/08/20 12:08 Temp 98.0 Pulse 67 Resp 20 B/P (MAP) 134/62 (86) Pulse Ox 90 Laboratory Tests Test 06/06/20 16:19 06/06/20 20:18 06/07/20 04:57 06/07/20 07:45 Bedside Glucose 203 216 169 165 Test 06/07/20 08:25 06/07/20 09:12 06/07/20 11:06 06/07/20 15:00 White Blood Count 13.4 10^3/uL Red Blood Count 4.77 10^6/uL Hemoglobin 14.0 g/dL Hematocrit 42.5 % Mean Corpuscular Volume 89.1 fL Mean Corpuscular Hemoglobin 29.4 pg Mean Corpuscular Hemoglobin Concent 32.9 g/dL Red Cell Distribution Width 13.0 % Platelet Count 348 10^3/uL Mean Platelet Volume 9.8 fL Neutrophils (%) (Auto) 83.5 % Lymphocytes (%) (Auto) 6.3 % Monocytes (%) (Auto) 5.3 % Neutrophils # (Auto) 11.2 10^3/uL Lymphocytes # (Auto) 0.85 10^3/uL1 Monocytes # (Auto) 0.7 10^3/uL Absolute Immature Granulocyte (auto 0.64 10^3 u/L Absolute Eosinophils (auto) 0.0 10^3/uL Immature Granulocytes % 4.80 % Eosinophils % 0.0 % Basophils % 0.1 % Basophils # 0.0 10^3/uL Sodium Level 141 mmol/L Potassium Level 3.5 mmol/L Chloride Level 103.0 mmol/L Carbon Dioxide Level 29.5 mmol/L Anion Gap 12.0 Blood Urea Nitrogen 45 mg/dL Creatinine 0.96 mg/dL Estimated GFR () 72.0 Est GFR (CKD-EPI)(Non-Afr Polish) 59.5 BUN/Creatinine Ratio 46.0 Glucose Level 194 mg/dL Calcium Level 9.2 mg/dL Total Bilirubin 0.4 mg/dL Aspartate Amino Transf (AST/SGOT) 84 U/L Alanine Aminotransferase (ALT/SGPT) 96 U/L Alkaline Phosphatase 62 U/L Total Protein 6.9 g/dL Albumin 2.8 g/dL Globulin 4.1 Albumin/Globulin Ratio 0.682 Differential Total Cells Counted 100 #CELLS Segmented Neutrophils 81 % Band Neutrophils 2 % Lymphocytes 9 % Monocytes 5 % Metamyelocytes 1 % Myelocytes 1 % Toxic Granulation 1+ Platelet Estimate ADEQUATE Platelet Morphology NORMAL Blood Morphology Comment NORMAL MORPHOLOGY Bedside Glucose 178 173 Test 06/07/20 19:50 06/08/20 04:35 06/08/20 05:47 06/08/20 07:03 Bedside Glucose 260 163 White Blood Count 16.3 10^3/uL Red Blood Count 4.42 10^6/uL Hemoglobin 13.2 g/dL Hematocrit 38.3 % Mean Corpuscular Volume 86.7 fL Mean Corpuscular Hemoglobin 29.9 pg Mean Corpuscular Hemoglobin Concent 34.5 g/dL Red Cell Distribution Width 12.7 % Platelet Count 402 10^3/uL Mean Platelet Volume 9.8 fL Neutrophils (%) (Auto) 87.2 % Lymphocytes (%) (Auto) 3.7 % Monocytes (%) (Auto) 4.7 % Neutrophils # (Auto) 14.2 10^3/uL Lymphocytes # (Auto) 0.60 10^3/uL1 Monocytes # (Auto) 0.8 10^3/uL Absolute Immature Granulocyte (auto 0.70 10^3 u/L Absolute Eosinophils (auto) 0.0 10^3/uL Immature Granulocytes % 4.30 % Eosinophils % 0.0 % Basophils % 0.1 % Basophils # 0.0 10^3/uL Sodium Level 141 mmol/L Potassium Level 3.7 mmol/L Chloride Level 104.0 mmol/L Carbon Dioxide Level 28.4 mmol/L Anion Gap 12.3 Blood Urea Nitrogen 42 mg/dL Creatinine 0.98 mg/dL Estimated GFR () 70.3 Est GFR (CKD-EPI)(Non-Afr Polish) 58.1 BUN/Creatinine Ratio 42.0 Glucose Level 192 mg/dL Calcium Level 9.1 mg/dL Total Bilirubin 0.4 mg/dL Aspartate Amino Transf (AST/SGOT) 37 U/L Alanine Aminotransferase (ALT/SGPT) 78 U/L Alkaline Phosphatase 55 U/L Total Protein 6.4 g/dL Albumin 2.6 g/dL Globulin 3.8 Albumin/Globulin Ratio 0.684 Differential Total Cells Counted 100 #CELLS Segmented Neutrophils 88 % Band Neutrophils 1 % Lymphocytes 3 % Monocytes 7 % Metamyelocytes 1 % Platelet Estimate INCREASED Platelet Morphology NORMAL Blood Morphology Comment NORMAL MORPHOLOGY Test 06/08/20 08:05 Bedside Glucose 175 Current Medications Medications (Trade) Dose Ordered Sig/Stas PRN Reason Start Time Stop Time Status Last Admin Acetaminophen (Tylenol) 1,000 mg Q6H PRN PAIN 1 - 3 06/05/20 15:30 07/05/20 15:29 06/07/20 20:32 Ascorbic Acid (Vitamin C) 500 mg BID 06/05/20 21:00 07/05/20 20:59 06/08/20 09:49 Azithromycin 500 mg/Sodium Chloride 250 ml @ 175 mls/hr Q24HRS 06/05/20 20:00 07/05/20 19:59 06/07/20 20:30 Ceftriaxone Sodium 1000 mg/ Sodium Chloride 100 ml @ 100 mls/hr Q24HRS 06/06/20 13:00 07/06/20 12:59 06/07/20 12:56 Dextrose (Dextrose 50%-Water Syringe) 25 ml STAT PRN HYPOGLYCEMIA 06/05/20 15:30 07/05/20 15:29 Enoxaparin Sodium (Lovenox) 40 mg Q24HRS 06/08/20 12:30 07/08/20 12:29 06/08/20 12:26 Famotidine (Pepcid) 20 mg BID 06/05/20 21:00 07/05/20 20:59 06/08/20 09:49 Furosemide (Lasix) 20 mg STAT 06/05/20 16:00 07/05/20 15:59 06/05/20 22:09 Gabapentin (Neurontin) 600 mg BID 06/05/20 21:00 07/05/20 20:59 06/08/20 09:50 Guaifenesin (Mucinex) 1,200 mg BID 06/05/20 21:00 07/05/20 20:59 06/08/20 09:50 Hydrochlorothiazide (Hydrochlorothiazide) 12.5 mg DAILY 06/06/20 09:00 07/06/20 08:59 06/07/20 09:29 Insulin Glargine (Lantus) 10 unit HS 06/05/20 21:00 07/05/20 20:59 06/07/20 20:08 Insulin Human Lispro (Humalog) 0-140 0 Units 141-200... ACHS 06/05/20 17:30 07/05/20 17:29 06/08/20 11:30 Losartan Potassium (Cozaar) 100 mg DAILY 06/06/20 09:00 07/06/20 08:59 06/07/20 09:29 Morphine Sulfate (Morphine Sulfate) 2 mg Q4H PRN PAIN 7 - 10 06/05/20 15:30 07/05/20 15:29 Remdesivir 100 mg/ Sodium Chloride 120 ml @ 111.111 mls/hr Q24HRS 06/06/20 15:00 06/09/20 16:05 06/07/20 15:11 Zolpidem Tartrate (Ambien) 5 mg HS PRN INSOMNIA 06/05/20 15:30 07/05/20 15:29 06/07/20 20:32 LEVEL 1 SEPSIS INFECTION CRITE: ABX Therapy LEVEL 2-SIRS (LIST ALL THAT AP: None/Not assessed Cardiovascular Evidence: Not Assessed or None Hematologic Evidence: None/Not assessed Hepatic Evidence: None/Not assessed Metabolic Evidence: None/Not assessed Neurological Evidence: None/Not assessed Respiratory Evidence: None/Not assessed Renal Evidence: None/Not assessed O2 Sat by Pulse Oximetry: 90 Oxygen Flow Rate: 6.00 Assessment/Plan Assessment/Plan Assessment/Plan ICD Code: J18.9 - Pneumonia, unspecified organism Improving, continue current management with Combination of remdesivir, azithromycin, vitamin C, dexamethasone, Lovenox, and IS. ICD Code: U07.1 - COVID-19 Improving, continue current management with medication, O2 and IS. ICD Code: I10 - Essential (primary) hypertension Stable, continue current management Enoxaparin for VTE/DVT PPX Pepcid for GI PPX Full code BALJINDER MARTINEZ MD Jun 10, 2020 19:57
[2020-06-10] MEDS: ZITHROMAX 500 MG in NS 250ML 250 ML IV SCH (20:00)
[2020-06-10] MEDS: LANTUS SQ SCH (21:00)
[2020-06-10 23:10] VITALS: BP 105/48
[2020-06-11] VITALS (8 sets, daily range): BP systolic 102–147; BP diastolic 39–62
[2020-06-11] MEDS: HUMALOG SQ SCH ×4 (07:30→20:29)
[2020-06-11] MEDS: ROCEPHIN 1,000 MG in NS 100ML 100 ML IV SCH (17:25)
[2020-06-11] MEDS: ZITHROMAX 500 MG in NS 250ML 250 ML IV SCH (20:00)
[2020-06-11] MEDS: LANTUS SQ SCH (20:31)
--- NOTE | 2020-06-11 20:50 | PRM.PN ---
Subjective Subjective Date: Jun 11, 2020 Time: 20:50 Subjective Patient states that she is feeling better today we did discuss her 's condition who is in the ICU that he is still critical and at risk for acute deterioration at any time she wishes to continue cardiac arrhythmia medication s hould he have repeat episodes of SVT or V. fib however she does not want chest compressions or full CPR. We discussed that his creatinine is improving however his uremia persists. He is currently not stable on the ventilator or from a cardiac standpoint to transfer to [facility] for dialysis but if we can improve his lungs he may be able to transport for dialysis if his creatinine does not continue to improve and he remains uremic Patient History: Alzheimer's disease 33 FATHER, , Age:73 Chronic obstructive pulmonary disease G8 BROTHER FH: diverticulitis Hypertension 32 MOTHER, , Age:72 No known health problems G8 BROTHER (BRAIN INJURY FROM ELECTRICAL ACCIDENT) G8 SISTER V19 CHILD V19 CHILD V19 CHILD V19 CHILD No Family History of: Asthma Cerebrovascular disorder Congestive heart failure Diabetes insipidus Diabetes mellitus Parkinson's disease VTE VTE Risk Total Score: 0 VTE Risk Score VTE Risk: Score 0-1 = Low Risk (Aggressive mobilization; early ambulation; no VTE prophylaxis required) Score 2: Moderate Risk (Intermittent/Pneumatic Compression Device OR Lovenox/Heparin/Coumadin) Score 3-4: High Risk (Intermittent/Pneumatic Compression Device AND Lovenox/Heparin/Coumadin) Score > or =5: Highest Risk (Intermittent/Pneumatic Compression Device AND Lovenox/Heparin/Coumadin) Antico:Hep/LMWH/Coum/Xarelto: Yes Review of Systems Constitutional: No: Fever, Chills, Sweats, Weakness, Malaise Eyes: No: Pain, Vision change, Conjunctivae inflammation, Eyelid inflammation ENT: No: Nose pain, Nose discharge, Nose congestion, Mouth pain, Mouth swelling, Throat pain, Throat swelling, Other Respiratory: Cough, Shortness of breath; No: Sputum Cardiovascular: No: Chest Pain, Palpitations, Orthopnea, Paroxysmal Noc. Dyspnea, Edema Gastrointestinal: No: Nausea, Vomiting, Abdominal Pain Genitourinary: No Dysuria, No Frequency, No Incontinence, No Hematuria, No Retention Musculoskeletal: other; No: neck pain, shoulder pain, arm pain, back pain, hand pain, leg pain, foot pain Neurological: No: Weakness, Numbness Allergies: Coded Allergies: No Known Drug Allergies (Verified Allergy, Unknown, 06/03/20) Scheduled Dulaglutide (Trulicity), 0.75 MG SQ Q7D, (Reported) Gabapentin (Neurontin), 600 MG PO BID, (Reported) Olmesartan/Hydrochlorothiazide (Benicar Hct 20-12.5 Mg Tablet), 1 TAB PO DAILY, (Reported) Objective Vitals and I/O Vital Sign - Last 24 Hours 06/10/20 06/10/20 06/10/20 06/11/20 21:00 22:59 23:10 00:00 Temp 97.9 98.3 Pulse 73 73 Resp B/P (MAP) 105/48 105/48 (67) 138/60 (86) Pulse Ox 90 90 O2 Delivery Nasal Cannula Nasal Canula Nasal Canula 06/11/20 06/11/20 06/11/20 06/11/20 05:31 05:31 05:32 08:58 Temp 98.3 98.3 98.3 98.1 Pulse 73 73 73 56 Resp B/P (MAP) 138/60 (86) 138/60 (86) 138/60 (86) 147/62 (90) Pulse Ox 90 90 90 97 O2 Delivery Nasal Canula Nasal Canula Nasal Canula 06/11/20 06/11/20 06/11/20 06/11/20 10:23 10:44 12:51 15:41 Temp 97.6 97.7 Pulse 73 75 80 Resp 22 B/P (MAP) 102/39 (60) 120/53 (75) Pulse Ox 97 97 95 O2 Delivery Nasal Cannula Nasal Cannula Nasal Canula O2 Flow Rate 6.00 6.00 6.00 FiO2 44 06/11/20 06/11/20 16:48 20:13 Temp 97.7 97.5 Pulse 80 70 Resp 22 20 B/P (MAP) 120/53 (75) 129/58 (81) Pulse Ox 95 92 O2 Delivery Nasal Canula O2 Flow Rate 6.00 Intake and Output 06/11/20 06:59 Intake Total 5707 ml Output Total 220 ml Balance 5487 ml General: Alert, Oriented X3, Cooperative, mild distress HEENT: Atraumatic, Mucous membr. moist/pink Neck: Supple Lungs: Normal air movement, Other (Fine crackles at the bases) Heart: Regular rate, No murmurs, Gallops, Rubs Abdomen: Normal bowel sounds, Soft, No tenderness Skin: No rashes, No significant lesion Neuro: Normal speech, Strength at 5/5 X4 ext, Normal tone, Cranial nerves 3-12 NL Psych/Mental Status: Mental status NL, Mood NL All Results(Lab/Rad) Laboratory Tests Test 06/07/20 15:00 06/07/20 19:50 06/08/20 04:35 06/08/20 05:47 Bedside Glucose 173 260 163 White Blood Count 16.3 10^3/uL Red Blood Count 4.42 10^6/uL Hemoglobin 13.2 g/dL Hematocrit 38.3 % Mean Corpuscular Volume 86.7 fL Mean Corpuscular Hemoglobin 29.9 pg Mean Corpuscular Hemoglobin Concent 34.5 g/dL Red Cell Distribution Width 12.7 % Platelet Count 402 10^3/uL Mean Platelet Volume 9.8 fL Neutrophils (%) (Auto) 87.2 % Lymphocytes (%) (Auto) 3.7 % Monocytes (%) (Auto) 4.7 % Neutrophils # (Auto) 14.2 10^3/uL Lymphocytes # (Auto) 0.60 10^3/uL1 Monocytes # (Auto) 0.8 10^3/uL Absolute Immature Granulocyte (auto 0.70 10^3 u/L Absolute Eosinophils (auto) 0.0 10^3/uL Immature Granulocytes % 4.30 % Eosinophils % 0.0 % Basophils % 0.1 % Basophils # 0.0 10^3/uL Sodium Level 141 mmol/L Potassium Level 3.7 mmol/L Chloride Level 104.0 mmol/L Carbon Dioxide Level 28.4 mmol/L Anion Gap 12.3 Blood Urea Nitrogen 42 mg/dL Creatinine 0.98 mg/dL Estimated GFR () 70.3 Est GFR (CKD-EPI)(Non-Afr Gambian) 58.1 BUN/Creatinine Ratio 42.0 Glucose Level 192 mg/dL Calcium Level 9.1 mg/dL Total Bilirubin 0.4 mg/dL Aspartate Amino Transf (AST/SGOT) 37 U/L Alanine Aminotransferase (ALT/SGPT) 78 U/L Alkaline Phosphatase 55 U/L Total Protein 6.4 g/dL Albumin 2.6 g/dL Globulin 3.8 Albumin/Globulin Ratio 0.684 Test 06/08/20 07:03 06/08/20 08:05 Differential Total Cells Counted 100 #CELLS Segmented Neutrophils 88 % Band Neutrophils 1 % Lymphocytes 3 % Monocytes 7 % Metamyelocytes 1 % Platelet Estimate INCREASED Platelet Morphology NORMAL Blood Morphology Comment NORMAL MORPHOLOGY Bedside Glucose 175 Current Medications Medications (Trade) Dose Ordered Sig/Stas Route PRN Reason Start Time Stop Time Status Last Admin Dose Admin Ceftriaxone Sodium 1000 mg/ Sodium Chloride 100 ml @ 100 mls/hr STAT STAT IV 06/05/20 12:28 06/05/20 15:44 DC 06/05/20 12:56 Lorazepam (Ativan) 1 mg STAT STAT IV 06/05/20 12:33 06/05/20 15:44 DC 06/05/20 12:56 Ceftriaxone Sodium (Rocephin) 1,000 mg STK-MED ONCE .ROUTE 06/05/20 12:32 06/05/20 12:35 DC Enoxaparin Sodium (Lovenox) 90 mg STAT STAT SQ 06/05/20 13:39 06/05/20 13:41 DC Enoxaparin Sodium (Lovenox) 90 mg STAT STAT SQ 06/05/20 13:42 06/05/20 13:44 DC 06/05/20 14:15 Enoxaparin Sodium (Lovenox) 100 mg STK-MED ONCE SQ 06/05/20 13:42 06/05/20 13:44 DC Ceftriaxone Sodium 1000 mg/ Sodium Chloride 100 ml @ 100 mls/hr Q24HRS IV 06/06/20 13:00 07/06/20 12:59 06/07/20 12:56 Acetaminophen (Tylenol) 1,000 mg Q6H PRN PO PAIN 1 - 3 06/05/20 15:30 07/05/20 15:29 06/07/20 20:32 Zolpidem Tartrate (Ambien) 5 mg HS PRN PO INSOMNIA 06/05/20 15:30 07/05/20 15:29 06/07/20 20:32 Morphine Sulfate (Morphine Sulfate) 2 mg Q4H PRN IV PAIN 7 - 10 06/05/20 15:30 07/05/20 15:29 Insulin Human Lispro (Humalog) 0-140 0 Units 141-200... ACHS SQ 06/05/20 17:30 1/2/21 17:29 06/08/20 11:30 Dextrose (Dextrose 50%-Water Syringe) 25 ml STAT PRN IV HYPOGLYCEMIA 06/05/20 15:30 07/05/20 15:29 Guaifenesin (Mucinex) 1,200 mg BID PO 06/05/20 21:00 07/05/20 20:59 06/08/20 09:50 Zinc Sulfate (Zinc Sulfate) 220 mg STAT STAT PO 06/05/20 15:37 06/05/20 15:47 DC 06/05/20 17:31 Azithromycin 500 mg/Sodium Chloride 250 ml @ 175 mls/hr Q24HRS IV 06/05/20 16:00 06/05/20 17:50 DC Furosemide (Lasix) 20 mg STAT IV 06/05/20 16:00 07/05/20 15:59 06/05/20 22:09 Ascorbic Acid (Vitamin C) 500 mg BID PO 06/05/20 21:00 07/05/20 20:59 06/08/20 09:49 Insulin Glargine (Lantus) 10 unit HS SQ 06/05/20 21:00 07/05/20 20:59 06/07/20 20:08 Remdesivir 200 mg/ Sodium Chloride 140 ml @ 120.69 mls/ hr OT STAT IV 06/05/20 15:37 06/05/20 16:46 DC 06/05/20 17:31 Famotidine (Pepcid) 20 mg BID PO 06/05/20 21:00 07/05/20 20:59 06/08/20 09:49 Enoxaparin Sodium (Lovenox) 80 mg BID SQ 06/05/20 21:00 06/07/20 12:14 DC 06/07/20 09:29 Gabapentin (Neurontin) 600 mg BID PO 06/05/20 21:00 07/05/20 20:59 06/08/20 09:50 Losartan Potassium (Cozaar) 100 mg DAILY PO 06/06/20 09:00 07/06/20 08:59 06/07/20 09:29 Hydrochlorothiazide (Hydrochlorothiazide) 12.5 mg DAILY PO 06/06/20 09:00 07/06/20 08:59 06/07/20 09:29 Zinc Sulfate (Zinc Sulfate) 220 mg STK-MED ONCE .ROUTE 06/05/20 17:08 06/05/20 17:11 DC Azithromycin 500 mg/Sodium Chloride 250 ml @ 175 mls/hr Q24HRS IV 06/05/20 20:00 07/05/20 19:59 06/07/20 20:30 Sodium Chloride 250 ml @ ud STK-MED ONCE IV 06/05/20 20:50 06/05/20 20:52 DC Sodium Chloride 500 ml @ ud STK-MED ONCE IV 06/06/20 00:24 06/06/20 00:26 DC Remdesivir 100 mg/ Sodium Chloride 120 ml @ 111.111 mls/hr Q24HRS IV 06/06/20 15:00 06/09/20 16:05 06/07/20 15:11 Enoxaparin Sodium (Lovenox) 40 mg Q24HRS SQ 06/08/20 12:30 07/08/20 12:29 06/08/20 12:26 Course Sepsis Screening Results: Posi: NEGATIVE Sepsis Qualifier/Stage: NO DEFINITE RISK Duration or Total Time Spent w: 15 min Vitals & review Data Vital Sign - Last 24 Hours 06/07/20 06/07/20 06/07/20 06/07/20 16:58 19:19 21:33 23:40 Temp 98.1 98.0 98.1 Pulse 53 62 76 Resp 19 18 18 B/P (MAP) 137/65 (89) 115/57 (76) 132/61 (84) Pulse Ox 93 95 97 O2 Delivery Non-Rebreather O2 Flow Rate 15.00 06/08/20 06/08/20 06/08/20 06/08/20 04:08 08:38 09:00 09:00 Temp 98.2 97.1 Pulse 82 66 Resp 18 19 B/P (MAP) 136/67 (90) 114/52 (72) 114/52 114/52 Pulse Ox 96 90 O2 Delivery Comfort Flow O2 Flow Rate 15.00 06/08/20 12:08 Temp 98.0 Pulse 67 Resp 20 B/P (MAP) 134/62 (86) Pulse Ox 90 Laboratory Tests Test 06/06/20 16:19 06/06/20 20:18 06/07/20 04:57 06/07/20 07:45 Bedside Glucose 203 216 169 165 Test 06/07/20 08:25 06/07/20 09:12 06/07/20 11:06 06/07/20 15:00 White Blood Count 13.4 10^3/uL Red Blood Count 4.77 10^6/uL Hemoglobin 14.0 g/dL Hematocrit 42.5 % Mean Corpuscular Volume 89.1 fL Mean Corpuscular Hemoglobin 29.4 pg Mean Corpuscular Hemoglobin Concent 32.9 g/dL Red Cell Distribution Width 13.0 % Platelet Count 348 10^3/uL Mean Platelet Volume 9.8 fL Neutrophils (%) (Auto) 83.5 % Lymphocytes (%) (Auto) 6.3 % Monocytes (%) (Auto) 5.3 % Neutrophils # (Auto) 11.2 10^3/uL Lymphocytes # (Auto) 0.85 10^3/uL1 Monocytes # (Auto) 0.7 10^3/uL Absolute Immature Granulocyte (auto 0.64 10^3 u/L Absolute Eosinophils (auto) 0.0 10^3/uL Immature Granulocytes % 4.80 % Eosinophils % 0.0 % Basophils % 0.1 % Basophils # 0.0 10^3/uL Sodium Level 141 mmol/L Potassium Level 3.5 mmol/L Chloride Level 103.0 mmol/L Carbon Dioxide Level 29.5 mmol/L Anion Gap 12.0 Blood Urea Nitrogen 45 mg/dL Creatinine 0.96 mg/dL Estimated GFR () 72.0 Est GFR (CKD-EPI)(Non-Afr Gambian) 59.5 BUN/Creatinine Ratio 46.0 Glucose Level 194 mg/dL Calcium Level 9.2 mg/dL Total Bilirubin 0.4 mg/dL Aspartate Amino Transf (AST/SGOT) 84 U/L Alanine Aminotransferase (ALT/SGPT) 96 U/L Alkaline Phosphatase 62 U/L Total Protein 6.9 g/dL Albumin 2.8 g/dL Globulin 4.1 Albumin/Globulin Ratio 0.682 Differential Total Cells Counted 100 #CELLS Segmented Neutrophils 81 % Band Neutrophils 2 % Lymphocytes 9 % Monocytes 5 % Metamyelocytes 1 % Myelocytes 1 % Toxic Granulation 1+ Platelet Estimate ADEQUATE Platelet Morphology NORMAL Blood Morphology Comment NORMAL MORPHOLOGY Bedside Glucose 178 173 Test 06/07/20 19:50 06/08/20 04:35 06/08/20 05:47 06/08/20 07:03 Bedside Glucose 260 163 White Blood Count 16.3 10^3/uL Red Blood Count 4.42 10^6/uL Hemoglobin 13.2 g/dL Hematocrit 38.3 % Mean Corpuscular Volume 86.7 fL Mean Corpuscular Hemoglobin 29.9 pg Mean Corpuscular Hemoglobin Concent 34.5 g/dL Red Cell Distribution Width 12.7 % Platelet Count 402 10^3/uL Mean Platelet Volume 9.8 fL Neutrophils (%) (Auto) 87.2 % Lymphocytes (%) (Auto) 3.7 % Monocytes (%) (Auto) 4.7 % Neutrophils # (Auto) 14.2 10^3/uL Lymphocytes # (Auto) 0.60 10^3/uL1 Monocytes # (Auto) 0.8 10^3/uL Absolute Immature Granulocyte (auto 0.70 10^3 u/L Absolute Eosinophils (auto) 0.0 10^3/uL Immature Granulocytes % 4.30 % Eosinophils % 0.0 % Basophils % 0.1 % Basophils # 0.0 10^3/uL Sodium Level 141 mmol/L Potassium Level 3.7 mmol/L Chloride Level 104.0 mmol/L Carbon Dioxide Level 28.4 mmol/L Anion Gap 12.3 Blood Urea Nitrogen 42 mg/dL Creatinine 0.98 mg/dL Estimated GFR () 70.3 Est GFR (CKD-EPI)(Non-Afr Gambian) 58.1 BUN/Creatinine Ratio 42.0 Glucose Level 192 mg/dL Calcium Level 9.1 mg/dL Total Bilirubin 0.4 mg/dL Aspartate Amino Transf (AST/SGOT) 37 U/L Alanine Aminotransferase (ALT/SGPT) 78 U/L Alkaline Phosphatase 55 U/L Total Protein 6.4 g/dL Albumin 2.6 g/dL Globulin 3.8 Albumin/Globulin Ratio 0.684 Differential Total Cells Counted 100 #CELLS Segmented Neutrophils 88 % Band Neutrophils 1 % Lymphocytes 3 % Monocytes 7 % Metamyelocytes 1 % Platelet Estimate INCREASED Platelet Morphology NORMAL Blood Morphology Comment NORMAL MORPHOLOGY Test 06/08/20 08:05 Bedside Glucose 175 Current Medications Medications (Trade) Dose Ordered Sig/Stas PRN Reason Start Time Stop Time Status Last Admin Acetaminophen (Tylenol) 1,000 mg Q6H PRN PAIN 1 - 3 06/05/20 15:30 07/05/20 15:29 06/07/20 20:32 Ascorbic Acid (Vitamin C) 500 mg BID 06/05/20 21:00 07/05/20 20:59 06/08/20 09:49 Azithromycin 500 mg/Sodium Chloride 250 ml @ 175 mls/hr Q24HRS 06/05/20 20:00 07/05/20 19:59 06/07/20 20:30 Ceftriaxone Sodium 1000 mg/ Sodium Chloride 100 ml @ 100 mls/hr Q24HRS 06/06/20 13:00 07/06/20 12:59 06/07/20 12:56 Dextrose (Dextrose 50%-Water Syringe) 25 ml STAT PRN HYPOGLYCEMIA 06/05/20 15:30 07/05/20 15:29 Enoxaparin Sodium (Lovenox) 40 mg Q24HRS 06/08/20 12:30 07/08/20 12:29 06/08/20 12:26 Famotidine (Pepcid) 20 mg BID 06/05/20 21:00 07/05/20 20:59 06/08/20 09:49 Furosemide (Lasix) 20 mg STAT 06/05/20 16:00 07/05/20 15:59 06/05/20 22:09 Gabapentin (Neurontin) 600 mg BID 06/05/20 21:00 07/05/20 20:59 06/08/20 09:50 Guaifenesin (Mucinex) 1,200 mg BID 06/05/20 21:00 07/05/20 20:59 06/08/20 09:50 Hydrochlorothiazide (Hydrochlorothiazide) 12.5 mg DAILY 06/06/20 09:00 07/06/20 08:59 06/07/20 09:29 Insulin Glargine (Lantus) 10 unit HS 06/05/20 21:00 07/05/20 20:59 06/07/20 20:08 Insulin Human Lispro (Humalog) 0-140 0 Units 141-200... ACHS 06/05/20 17:30 07/05/20 17:29 06/08/20 11:30 Losartan Potassium (Cozaar) 100 mg DAILY 06/06/20 09:00 07/06/20 08:59 06/07/20 09:29 Morphine Sulfate (Morphine Sulfate) 2 mg Q4H PRN PAIN 7 - 10 06/05/20 15:30 07/05/20 15:29 Remdesivir 100 mg/ Sodium Chloride 120 ml @ 111.111 mls/hr Q24HRS 06/06/20 15:00 06/09/20 16:05 06/07/20 15:11 Zolpidem Tartrate (Ambien) 5 mg HS PRN INSOMNIA 06/05/20 15:30 07/05/20 15:29 06/07/20 20:32 LEVEL 1 SEPSIS INFECTION CRITE: ABX Therapy LEVEL 2-SIRS (LIST ALL THAT AP: None/Not assessed Cardiovascular Evidence: Not Assessed or None Hematologic Evidence: None/Not assessed Hepatic Evidence: None/Not assessed Metabolic Evidence: None/Not assessed Neurological Evidence: None/Not assessed Respiratory Evidence: None/Not assessed Renal Evidence: None/Not assessed O2 Sat by Pulse Oximetry: 92 Oxygen Flow Rate: 6.00 Assessment/Plan Assessment/Plan Assessment/Plan ICD Code: J18.9 - Pneumonia, unspecified organism Improving, continue current management with Combination of remdesivir, azithro mycin, ceftriaxone, vitamin C, dexamethasone, Lovenox, and IS. ICD Code: U07.1 - COVID-19 Improving, continue current management with medication, O2 and IS. ICD Code: I10 - Essential (primary) hypertension Stable, continue current management Enoxaparin for VTE/DVT PPX Pepcid for GI PPX Full code BALJINDER MARTINEZ MD Jun 11, 2020 20:50
[2020-06-11] MEDS: MUCINEX PO SCH (21:00)
[2020-06-11] MEDS: VITAMIN C PO SCH (21:00)
[2020-06-11] MEDS: DEXAMETHASONE 10 MG/ML VIAL IV SCH (21:00)
[2020-06-11] MEDS: PEPCID PO SCH (21:00)
[2020-06-11] MEDS: NEURONTIN PO SCH (21:00)
[2020-06-12 00:37] VITALS: BP 133/55
[2020-06-12 04:11] VITALS: BP 110/49
[2020-06-12 06:05] LABS: BASOPHIL % 0.1 % (0.0-0.2); LYMPHOCYTES # 0.38 10^3/uL1 (1.0-4.8); LYMPHOCYTES % 2.1 % (24.0-44.0); MEAN CORP HGB 29.4 pg (26-34); MONOCYTES # 0.6 10^3/uL (0.3-0.8); MONOCYTES % 3.1 % (5.0-12.0); NEUTROPHIL # 17.1 10^3/uL (1.8-7.7); NEUTROPHILS % 92.7 % (41.0-85.0); PLATELET COUNT 401 10^3/uL (150-400)
[2020-06-12 06:22] LABS: CALCIUM 8.5 mg/dL (8.4-10.5); CARBON DIOXIDE 26.2 mmol/L (20.0-32)
[2020-06-12] MEDS: HUMALOG SQ SCH ×5 (07:30→21:25)
[2020-06-12 08:15] VITALS: BP 149/60
[2020-06-12] MEDS: NEURONTIN PO SCH ×2 (08:52→21:00)
[2020-06-12] MEDS: PEPCID PO SCH ×2 (08:52→21:00)
[2020-06-12] MEDS: REMDESIVIR (EUA) 100 MG in NS 100ML 100 ML IV SCH (08:52)
[2020-06-12] MEDS: VITAMIN C PO SCH ×2 (08:53→21:00)
[2020-06-12] MEDS: MUCINEX PO SCH ×2 (08:53→21:00)
[2020-06-12] MEDS: COZAAR PO SCH (09:00)
[2020-06-12] MEDS: HYDROCHLOROTHIAZIDE PO SCH (09:00)
--- NOTE | 2020-06-12 11:34 | DIET.OP ---
Nutrition Asmt/Malnutrit 2-17 Actual Date of Review: Jun 12, 2020 Nutritional Screening: LOS Diagnosis: covid, hypoxia Pertinent Medical Hx/Surgical: DM, HTN Subjective Information: telehealth assessment - pt with generalized edema, denies any recent wt loss. No change in wt from last visit 1.5 years ago. Pt's is currently in the ICU at [facility]. Current Diet Order/Nutrition S: regular Patient /S.O: Not Indicated Pertinent Meds Current Medications Medications (Trade) Dose Ordered Sig/Stas PRN Reason Start Time Stop Time Status Last Admin Enoxaparin Sodium (Lovenox) 80 mg Q24HRS 06/09/20 12:00 07/09/20 11:59 06/09/20 21:00 Remdesivir 100 mg/ Sodium Chloride 120 ml @ 111.111 mls/hr Q24HRS 06/12/20 09:00 06/16/20 08:59 06/12/20 08:52 Pertinent Labs BUN 27, AST 36, BG 254, BG poc 224-291 mg/dl yesterday into today. Height (Feet): 5 Height (Inches): 5 Current Weight: 201 Usual Weight: 205 %IBW: 161 Recent Weight Change: No (wt stable since admission) Weight Status: Obese GI Symptoms: Last BM (06/12) Food Allergies: No Cultural/Ethnic/Orthodoxy Radha: none Current %PO: 60-70% on average Calories/Kcals/K-25 kcal/kg IBW Kcals Calculated: [id number] Protein: Use Current Weight Protein g/k.7-0.9 g/kg Protein Calculated: 64-82g Fluid: ml: 1425 ml (1ml/kcal) Nutritional Problem: No Cur. Nutritional Probl Signs/Symptoms: po intake meeting estimated needs, no wt changes RD Comments: Continue to monitor BG and correct as indicated. - Recommend 1500 kaylin ADA diet order for improved BG control. Expected Outcomes 70-100% po intake of most meals the next 5 days to meet 100% of nutrition needs. BG 150-180 mg/dl the next 5 days. Discharge on consistent carbohydrate diet Malnutrtion/Nutrition Risk Edu: No MD Notificiation Needed?: No Vero Denise Jun 12, 2020 11:34
[2020-06-12] MEDS: LOVENOX SQ SCH (12:20)
[2020-06-12 12:22] VITALS: BP 104/50
--- NOTE | 2020-06-12 14:45 | PRM.PN ---
Subjective Subjective Date: Jun 12, 2020 Time: 14:40 Subjective Patient states that she is feeling better today we did discuss her 's condition who is in the ICU that he is still critical and at risk for acute deterioration at any time she wishes to continue cardiac arrhythmia medication should he have repeat episodes of SVT or V. fib however she does not want chest compressions or full CPR. We discussed that his creatinine is improving however his uremia persists. He is currently not stable on the ventilator or from a cardiac standpoint to transfer to [place] for dialysis but if we can improve his lungs he may be able to transport for dialysis if his creatinine does not continue to improve and he remains uremic. Patient complaint of cough and shortness of breath. Denies any diarrhea blood in the stool. Denies any leg swelling. She still need oxygen to keep saturation above 90%. Denies any fever Patient History: Alzheimer's disease 33 FATHER, , Age:73 Chronic obstructive pulmonary disease G8 BROTHER FH: diverticulitis Hypertension 32 MOTHER, , Age:72 No known health problems G8 BROTHER (BRAIN INJURY FROM ELECTRICAL ACCIDENT) G8 SISTER V19 CHILD V19 CHILD V19 CHILD V19 CHILD No Family History of: Asthma Cerebrovascular disorder Congestive heart failure Diabetes insipidus Diabetes mellitus Parkinson's disease VTE VTE Risk Total Score: 0 VTE Risk Score VTE Risk: Score 0-1 = Low Risk (Aggressive mobilization; early ambulation; no VTE prophylaxis required) Score 2: Moderate Risk (Intermittent/Pneumatic Compression Device OR Lovenox/Heparin/Coumadin) Score 3-4: High Risk (Intermittent/Pneumatic Compression Device AND Lovenox/Heparin/Coumadin) Score > or =5: Highest Risk (Intermittent/Pneumatic Compression Device AND Lovenox/Heparin/Coumadin) Antico:Hep/LMWH/Coum/Xarelto: Yes Review of Systems Constitutional: No: Fever, Chills, Sweats, Weakness, Malaise Eyes: No: Pain, Vision change, Conjunctivae inflammation, Eyelid inflammation ENT: No: Nose pain, Nose discharge, Nose congestion, Mouth pain, Mouth swelling, Throat pain, Throat swelling, Other Respiratory: Cough, Shortness of breath; No: Sputum Cardiovascular: No: Chest Pain, Palpitations, Orthopnea, Paroxysmal Noc. Dyspnea, Edema Gastrointestinal: No: Nausea, Vomiting, Abdominal Pain Genitourinary: No Dysuria, No Frequency, No Incontinence, No Hematuria, No Retention Musculoskeletal: other; No: neck pain, shoulder pain, arm pain, back pain, hand pain, leg pain, foot pain Neurological: No: Weakness, Numbness Allergies: Coded Allergies: No Known Drug Allergies (Verified Allergy, Unknown, 06/03/20) Scheduled Dulaglutide (Trulicity), 0.75 MG SQ Q7D, (Reported) Gabapentin (Neurontin), 600 MG PO BID, (Reported) Olmesartan/Hydrochlorothiazide (Benicar Hct 20-12.5 Mg Tablet), 1 TAB PO DAILY, (Reported) Objective Vitals and I/O Vital Sign - Last 24 Hours 06/11/20 06/11/20 06/11/20 06/11/20 15:41 16:48 20:13 21:06 Temp 97.7 97.7 97.5 Pulse 80 80 70 69 Resp 22 22 20 18 B/P (MAP) 120/53 (75) 120/53 (75) 129/58 (81) Pulse Ox 95 95 92 94 O2 Delivery Nasal Canula Nasal Canula Nasal Cannula O2 Flow Rate 6.00 6.00 6.00 FiO2 44 06/11/20 06/11/20 06/12/20 06/12/20 21:07 21:41 00:37 04:11 Temp 97.8 97.6 Pulse 75 69 Resp 19 20 20 B/P (MAP) 133/55 (81) 110/49 (69) Pulse Ox 94 97 90 O2 Delivery Nasal Cannula Nasal Canula Nasal Canula O2 Flow Rate 6.00 6.00 06/12/20 06/12/20 06/12/20 06/12/20 08:15 09:00 09:00 12:22 Temp 98.2 97.3 Pulse 59 62 Resp 20 21 B/P (MAP) 149/60 (89) 149/50 149/50 104/50 (68) Pulse Ox 93 93 O2 Delivery Nasal Canula Nasal Canula O2 Flow Rate 6.00 6.00 Intake and Output 06/12/20 07:00 Intake Total 6307 ml Output Total 1200 ml Balance 5107 ml General: Alert, Oriented X3, Cooperative, mild distress HEENT: Atraumatic, Mucous membr. moist/pink Neck: Supple Lungs: Clear to auscultation, Normal air movement Heart: Regular rate, No murmurs, Gallops, Rubs Abdomen: Normal bowel sounds, Soft, No tenderness Skin: No rashes, No significant lesion Neuro: Normal speech, Strength at 5/5 X4 ext, Normal tone, Cranial nerves 3-12 NL Psych/Mental Status: Mental status NL, Mood NL All Results(Lab/Rad) Laboratory Tests Test 06/07/20 15:00 06/07/20 19:50 06/08/20 04:35 06/08/20 05:47 Bedside Glucose 173 260 163 White Blood Count 16.3 10^3/uL Red Blood Count 4.42 10^6/uL Hemoglobin 13.2 g/dL Hematocrit 38.3 % Mean Corpuscular Volume 86.7 fL Mean Corpuscular Hemoglobin 29.9 pg Mean Corpuscular Hemoglobin Concent 34.5 g/dL Red Cell Distribution Width 12.7 % Platelet Count 402 10^3/uL Mean Platelet Volume 9.8 fL Neutrophils (%) (Auto) 87.2 % Lymphocytes (%) (Auto) 3.7 % Monocytes (%) (Auto) 4.7 % Neutrophils # (Auto) 14.2 10^3/uL Lymphocytes # (Auto) 0.60 10^3/uL1 Monocytes # (Auto) 0.8 10^3/uL Absolute Immature Granulocyte (auto 0.70 10^3 u/L Absolute Eosinophils (auto) 0.0 10^3/uL Immature Granulocytes % 4.30 % Eosinophils % 0.0 % Basophils % 0.1 % Basophils # 0.0 10^3/uL Sodium Level 141 mmol/L Potassium Level 3.7 mmol/L Chloride Level 104.0 mmol/L Carbon Dioxide Level 28.4 mmol/L Anion Gap 12.3 Blood Urea Nitrogen 42 mg/dL Creatinine 0.98 mg/dL Estimated GFR () 70.3 Est GFR (CKD-EPI)(Non-Afr Nauruan) 58.1 BUN/Creatinine Ratio 42.0 Glucose Level 192 mg/dL Calcium Level 9.1 mg/dL Total Bilirubin 0.4 mg/dL Aspartate Amino Transf (AST/SGOT) 37 U/L Alanine Aminotransferase (ALT/SGPT) 78 U/L Alkaline Phosphatase 55 U/L Total Protein 6.4 g/dL Albumin 2.6 g/dL Globulin 3.8 Albumin/Globulin Ratio 0.684 Test 06/08/20 07:03 06/08/20 08:05 Differential Total Cells Counted 100 #CELLS Segmented Neutrophils 88 % Band Neutrophils 1 % Lymphocytes 3 % Monocytes 7 % Metamyelocytes 1 % Platelet Estimate INCREASED Platelet Morphology NORMAL Blood Morphology Comment NORMAL MORPHOLOGY Bedside Glucose 175 Current Medications Medications (Trade) Dose Ordered Sig/Stas Route PRN Reason Start Time Stop Time Status Last Admin Dose Admin Ceftriaxone Sodium 1000 mg/ Sodium Chloride 100 ml @ 100 mls/hr STAT STAT IV 06/05/20 12:28 06/05/20 15:44 DC 06/05/20 12:56 Lorazepam (Ativan) 1 mg STAT STAT IV 06/05/20 12:33 06/05/20 15:44 DC 06/05/20 12:56 Ceftriaxone Sodium (Rocephin) 1,000 mg STK-MED ONCE .ROUTE 06/05/20 12:32 06/05/20 12:35 DC Enoxaparin Sodium (Lovenox) 90 mg STAT STAT SQ 06/05/20 13:39 06/05/20 13:41 DC Enoxaparin Sodium (Lovenox) 90 mg STAT STAT SQ 06/05/20 13:42 06/05/20 13:44 DC 06/05/20 14:15 Enoxaparin Sodium (Lovenox) 100 mg STK-MED ONCE SQ 06/05/20 13:42 06/05/20 13:44 DC Ceftriaxone Sodium 1000 mg/ Sodium Chloride 100 ml @ 100 mls/hr Q24HRS IV 06/06/20 13:00 07/06/20 12:59 06/07/20 12:56 Acetaminophen (Tylenol) 1,000 mg Q6H PRN PO PAIN 1 - 3 06/05/20 15:30 07/05/20 15:29 06/07/20 20:32 Zolpidem Tartrate (Ambien) 5 mg HS PRN PO INSOMNIA 06/05/20 15:30 07/05/20 15:29 06/07/20 20:32 Morphine Sulfate (Morphine Sulfate) 2 mg Q4H PRN IV PAIN 7 - 10 06/05/20 15:30 07/05/20 15:29 Insulin Human Lispro (Humalog) 0-140 0 Units 141-200... ACHS SQ 06/05/20 17:30 07/05/20 17:29 06/08/20 11:30 Dextrose (Dextrose 50%-Water Syringe) 25 ml STAT PRN IV HYPOGLYCEMIA 06/05/20 15:30 07/05/20 15:29 Guaifenesin (Mucinex) 1,200 mg BID PO 06/05/20 21:00 07/05/20 20:59 06/08/20 09:50 Zinc Sulfate (Zinc Sulfate) 220 mg STAT STAT PO 06/05/20 15:37 06/05/20 15:47 DC 06/05/20 17:31 Azithromycin 500 mg/Sodium Chloride 250 ml @ 175 mls/hr Q24HRS IV 06/05/20 16:00 06/05/20 17:50 DC Furosemide (Lasix) 20 mg STAT IV 06/05/20 16:00 07/05/20 15:59 06/05/20 22:09 Ascorbic Acid (Vitamin C) 500 mg BID PO 06/05/20 21:00 07/05/20 20:59 06/08/20 09:49 Insulin Glargine (Lantus) 10 unit HS SQ 06/05/20 21:00 07/05/20 20:59 06/07/20 20:08 Remdesivir 200 mg/ Sodium Chloride 140 ml @ 120.69 mls/ hr OT STAT IV 06/05/20 15:37 06/05/20 16:46 DC 06/05/20 17:31 Famotidine (Pepcid) 20 mg BID PO 06/05/20 21:00 07/05/20 20:59 06/08/20 09:49 Enoxaparin Sodium (Lovenox) 80 mg BID SQ 06/05/20 21:00 06/07/20 12:14 DC 06/07/20 09:29 Gabapentin (Neurontin) 600 mg BID PO 06/05/20 21:00 07/05/20 20:59 06/08/20 09:50 Losartan Potassium (Cozaar) 100 mg DAILY PO 06/06/20 09:00 07/06/20 08:59 06/07/20 09:29 Hydrochlorothiazide (Hydrochlorothiazide) 12.5 mg DAILY PO 06/06/20 09:00 07/06/20 08:59 06/07/20 09:29 Zinc Sulfate (Zinc Sulfate) 220 mg STK-MED ONCE .ROUTE 06/05/20 17:08 06/05/20 17:11 DC Azithromycin 500 mg/Sodium Chloride 250 ml @ 175 mls/hr Q24HRS IV 06/05/20 20:00 07/05/20 19:59 06/07/20 20:30 Sodium Chloride 250 ml @ ud STK-MED ONCE IV 06/05/20 20:50 06/05/20 20:52 DC Sodium Chloride 500 ml @ ud STK-MED ONCE IV 06/06/20 00:24 06/06/20 00:26 DC Remdesivir 100 mg/ Sodium Chloride 120 ml @ 111.111 mls/hr Q24HRS IV 06/06/20 15:00 06/09/20 16:05 06/07/20 15:11 Enoxaparin Sodium (Lovenox) 40 mg Q24HRS SQ 06/08/20 12:30 07/08/20 12:29 06/08/20 12:26 Course Sepsis Screening Results: Posi: NEGATIVE Sepsis Qualifier/Stage: NO DEFINITE RISK Duration or Total Time Spent w: 15 min Vitals & review Data Vital Sign - Last 24 Hours 06/07/20 06/07/20 06/07/20 06/07/20 16:58 19:19 21:33 23:40 Temp 98.1 98.0 98.1 Pulse 53 62 76 Resp 19 18 18 B/P (MAP) 137/65 (89) 115/57 (76) 132/61 (84) Pulse Ox 93 95 97 O2 Delivery Non-Rebreather O2 Flow Rate 15.00 06/08/20 06/08/20 06/08/20 06/08/20 04:08 08:38 09:00 09:00 Temp 98.2 97.1 Pulse 82 66 Resp 18 19 B/P (MAP) 136/67 (90) 114/52 (72) 114/52 114/52 Pulse Ox 96 90 O2 Delivery Comfort Flow O2 Flow Rate 15.00 06/08/20 12:08 Temp 98.0 Pulse 67 Resp 20 B/P (MAP) 134/62 (86) Pulse Ox 90 Laboratory Tests Test 06/06/20 16:19 06/06/20 20:18 06/07/20 04:57 06/07/20 07:45 Bedside Glucose 203 216 169 165 Test 06/07/20 08:25 06/07/20 09:12 06/07/20 11:06 06/07/20 15:00 White Blood Count 13.4 10^3/uL Red Blood Count 4.77 10^6/uL Hemoglobin 14.0 g/dL Hematocrit 42.5 % Mean Corpuscular Volume 89.1 fL Mean Corpuscular Hemoglobin 29.4 pg Mean Corpuscular Hemoglobin Concent 32.9 g/dL Red Cell Distribution Width 13.0 % Platelet Count 348 10^3/uL Mean Platelet Volume 9.8 fL Neutrophils (%) (Auto) 83.5 % Lymphocytes (%) (Auto) 6.3 % Monocytes (%) (Auto) 5.3 % Neutrophils # (Auto) 11.2 10^3/uL Lymphocytes # (Auto) 0.85 10^3/uL1 Monocytes # (Auto) 0.7 10^3/uL Absolute Immature Granulocyte (auto 0.64 10^3 u/L Absolute Eosinophils (auto) 0.0 10^3/uL Immature Granulocytes % 4.80 % Eosinophils % 0.0 % Basophils % 0.1 % Basophils # 0.0 10^3/uL Sodium Level 141 mmol/L Potassium Level 3.5 mmol/L Chloride Level 103.0 mmol/L Carbon Dioxide Level 29.5 mmol/L Anion Gap 12.0 Blood Urea Nitrogen 45 mg/dL Creatinine 0.96 mg/dL Estimated GFR () 72.0 Est GFR (CKD-EPI)(Non-Afr Nauruan) 59.5 BUN/Creatinine Ratio 46.0 Glucose Level 194 mg/dL Calcium Level 9.2 mg/dL Total Bilirubin 0.4 mg/dL Aspartate Amino Transf (AST/SGOT) 84 U/L Alanine Aminotransferase (ALT/SGPT) 96 U/L Alkaline Phosphatase 62 U/L Total Protein 6.9 g/dL Albumin 2.8 g/dL Globulin 4.1 Albumin/Globulin Ratio 0.682 Differential Total Cells Counted 100 #CELLS Segmented Neutrophils 81 % Band Neutrophils 2 % Lymphocytes 9 % Monocytes 5 % Metamyelocytes 1 % Myelocytes 1 % Toxic Granulation 1+ Platelet Estimate ADEQUATE Platelet Morphology NORMAL Blood Morphology Comment NORMAL MORPHOLOGY Bedside Glucose 178 173 Test 06/07/20 19:50 06/08/20 04:35 06/08/20 05:47 06/08/20 07:03 Bedside Glucose 260 163 White Blood Count 16.3 10^3/uL Red Blood Count 4.42 10^6/uL Hemoglobin 13.2 g/dL Hematocrit 38.3 % Mean Corpuscular Volume 86.7 fL Mean Corpuscular Hemoglobin 29.9 pg Mean Corpuscular Hemoglobin Concent 34.5 g/dL Red Cell Distribution Width 12.7 % Platelet Count 402 10^3/uL Mean Platelet Volume 9.8 fL Neutrophils (%) (Auto) 87.2 % Lymphocytes (%) (Auto) 3.7 % Monocytes (%) (Auto) 4.7 % Neutrophils # (Auto) 14.2 10^3/uL Lymphocytes # (Auto) 0.60 10^3/uL1 Monocytes # (Auto) 0.8 10^3/uL Absolute Immature Granulocyte (auto 0.70 10^3 u/L Absolute Eosinophils (auto) 0.0 10^3/uL Immature Granulocytes % 4.30 % Eosinophils % 0.0 % Basophils % 0.1 % Basophils # 0.0 10^3/uL Sodium Level 141 mmol/L Potassium Level 3.7 mmol/L Chloride Level 104.0 mmol/L Carbon Dioxide Level 28.4 mmol/L Anion Gap 12.3 Blood Urea Nitrogen 42 mg/dL Creatinine 0.98 mg/dL Estimated GFR () 70.3 Est GFR (CKD-EPI)(Non-Afr Nauruan) 58.1 BUN/Creatinine Ratio 42.0 Glucose Level 192 mg/dL Calcium Level 9.1 mg/dL Total Bilirubin 0.4 mg/dL Aspartate Amino Transf (AST/SGOT) 37 U/L Alanine Aminotransferase (ALT/SGPT) 78 U/L Alkaline Phosphatase 55 U/L Total Protein 6.4 g/dL Albumin 2.6 g/dL Globulin 3.8 Albumin/Globulin Ratio 0.684 Differential Total Cells Counted 100 #CELLS Segmented Neutrophils 88 % Band Neutrophils 1 % Lymphocytes 3 % Monocytes 7 % Metamyelocytes 1 % Platelet Estimate INCREASED Platelet Morphology NORMAL Blood Morphology Comment NORMAL MORPHOLOGY Test 06/08/20 08:05 Bedside Glucose 175 Current Medications Medications (Trade) Dose Ordered Sig/Stas PRN Reason Start Time Stop Time Status Last Admin Acetaminophen (Tylenol) 1,000 mg Q6H PRN PAIN 1 - 3 06/05/20 15:30 07/05/20 15:29 06/07/20 20:32 Ascorbic Acid (Vitamin C) 500 mg BID 12/3/20 21:00 07/05/20 20:59 06/08/20 09:49 Azithromycin 500 mg/Sodium Chloride 250 ml @ 175 mls/hr Q24HRS 06/05/20 20:00 07/05/20 19:59 06/07/20 20:30 Ceftriaxone Sodium 1000 mg/ Sodium Chloride 100 ml @ 100 mls/hr Q24HRS 06/06/20 13:00 07/06/20 12:59 06/07/20 12:56 Dextrose (Dextrose 50%-Water Syringe) 25 ml STAT PRN HYPOGLYCEMIA 06/05/20 15:30 07/05/20 15:29 Enoxaparin Sodium (Lovenox) 40 mg Q24HRS 06/08/20 12:30 07/08/20 12:29 06/08/20 12:26 Famotidine (Pepcid) 20 mg BID 06/05/20 21:00 07/05/20 20:59 06/08/20 09:49 Furosemide (Lasix) 20 mg STAT 06/05/20 16:00 07/05/20 15:59 06/05/20 22:09 Gabapentin (Neurontin) 600 mg BID 06/05/20 21:00 07/05/20 20:59 06/08/20 09:50 Guaifenesin (Mucinex) 1,200 mg BID 06/05/20 21:00 07/05/20 20:59 06/08/20 09:50 Hydrochlorothiazide (Hydrochlorothiazide) 12.5 mg DAILY 06/06/20 09:00 07/06/20 08:59 06/07/20 09:29 Insulin Glargine (Lantus) 10 unit HS 06/05/20 21:00 07/05/20 20:59 06/07/20 20:08 Insulin Human Lispro (Humalog) 0-140 0 Units 141-200... ACHS 06/05/20 17:30 07/05/20 17:29 06/08/20 11:30 Losartan Potassium (Cozaar) 100 mg DAILY 06/06/20 09:00 07/06/20 08:59 06/07/20 09:29 Morphine Sulfate (Morphine Sulfate) 2 mg Q4H PRN PAIN 7 - 10 06/05/20 15:30 07/05/20 15:29 Remdesivir 100 mg/ Sodium Chloride 120 ml @ 111.111 mls/hr Q24HRS 06/06/20 15:00 06/09/20 16:05 06/07/20 15:11 Zolpidem Tartrate (Ambien) 5 mg HS PRN INSOMNIA 06/05/20 15:30 07/05/20 15:29 06/07/20 20:32 LEVEL 1 SEPSIS INFECTION CRITE: ABX Therapy LEVEL 2-SIRS (LIST ALL THAT AP: None/Not assessed Cardiovascular Evidence: Not Assessed or None Hematologic Evidence: None/Not assessed Hepatic Evidence: None/Not assessed Metabolic Evidence: None/Not assessed Neurological Evidence: None/Not assessed Respiratory Evidence: None/Not assessed Renal Evidence: None/Not assessed O2 Sat by Pulse Oximetry: 93 Oxygen Flow Rate: 6.00 Assessment/Plan Assessment/Plan Assessment/Plan 1. Pneumonia, 2. COVID-19 Infection 3. Essential (primary) hypertension Plan 1. Pneumonia, Likely related to Covid 19 White count elevated at 18,000 could be from a stress as well as from Covid oral steroids Patient still requires oxygen to keep sats above 90%. Chest x-ray shows multifocal infiltrates and ground-glass opacities scattered throughout both lungs. The findings are commonly reported imaging features of COVID-19 pneumonia. Plan continue current management with Combination of remdesivir, azithromycin, ceftriaxone, vitamin C, dexamethasone, Lovenox 80 mg subcu every 24 hours 2.COVID-19 Infection Improving, continue current management with medication, O2 and IS. 3. Essential (primary) hypertension Stable, Patient is currently on losartan and HCTZ 4. Diabetes mellitus. Appears to be out of control because of the steroid use. Blood sugar range [id number]. Plan continue Regular Insulin sliding scale and Lantus 10 units daily. Patient is on a diabetic diet Enoxaparin for VTE/DVT PPX Pepcid for GI PPX Full code DAVID HITCHCOCK MD Jun 12, 2020 14:44
[2020-06-12 16:18] VITALS: BP 113/60
[2020-06-12] MEDS: ROCEPHIN 1,000 MG in NS 100ML 100 ML IV SCH (17:10)
[2020-06-12 19:34] VITALS: BP 108/50
[2020-06-12] MEDS: LANTUS SQ SCH (19:58)
[2020-06-12] MEDS: ZITHROMAX 500 MG in NS 250ML 250 ML IV SCH (20:00)
[2020-06-12] MEDS: DEXAMETHASONE 10 MG/ML VIAL IV SCH (21:00)
[2020-06-13] VITALS (7 sets, daily range): BP systolic 101–127; BP diastolic 49–61
[2020-06-13 05:23] LABS: BASOPHIL % 0.1 % (0.0-0.2); EOSINOPHIL % 0.1 % (0.0-5.0); LYMPHOCYTES % 1.9 % (24.0-44.0); MEAN CORP HGB 29.9 pg (26-34); MONOCYTES # 0.5 10^3/uL (0.3-0.8); MONOCYTES % 2.8 % (5.0-12.0); NEUTROPHIL # 15.2 10^3/uL (1.8-7.7); NEUTROPHILS % 93.5 % (41.0-85.0); PLATELET COUNT 200 10^3/uL (150-400); RED CELL DISTRIBUTION WIDTH 13.2 % (11.5-14.5)
[2020-06-13 05:29] LABS: CALCIUM 8.5 mg/dL (8.4-10.5); CARBON DIOXIDE 23.7 mmol/L (20.0-32)
[2020-06-13] MEDS: HUMALOG SQ SCH ×3 (08:32→20:47)
[2020-06-13] MEDS: REMDESIVIR (EUA) 100 MG in NS 100ML 100 ML IV SCH (08:42)
[2020-06-13] MEDS: VITAMIN C PO SCH ×2 (08:44→20:52)
[2020-06-13] MEDS: PEPCID PO SCH ×2 (08:44→20:52)
[2020-06-13] MEDS: MUCINEX PO SCH ×2 (08:44→20:52)
[2020-06-13] MEDS: NEURONTIN PO SCH ×2 (08:44→20:52)
[2020-06-13] MEDS: HYDROCHLOROTHIAZIDE PO SCH (09:00)
[2020-06-13] MEDS: COZAAR PO SCH (09:00)
[2020-06-13] MEDS: LOVENOX SQ SCH (12:00)
--- NOTE | 2020-06-13 12:56 | PRM.PN ---
Subjective Subjective Date: Jun 13, 2020 Time: 12:49 Subjective Patient states that she is feeling better today we did discuss her 's condition who is in the ICU that he is still critical and at risk for acute deterioration at any time she wishes to continue cardiac arrhythmia medication should he have repeat episodes of SVT or V. fib however she does not want chest compressions or full CPR. We discussed that his creatinine is improving however his uremia persists. He is currently not stable on the ventilator or from a cardiac standpoint to transfer to [place] for dialysis but if we can improve his lungs he may be able to transport for dialysis if his creatinine does not continue to improve and he remains uremic. Patient complaint of cough and shortness of breath. Denies any diarrhea blood in the stool. Denies any leg swelling. She still need oxygen to keep saturation above 90%. Denies any fever. Denies any fever today. Appears with decrease of the shortness of breath. The cough is dry. She denies any abdominal pain or diarrhea. Patient History: Alzheimer's disease 33 FATHER, , Age:73 Chronic obstructive pulmonary disease G8 BROTHER FH: diverticulitis Hypertension 32 MOTHER, , Age:72 No known health problems G8 BROTHER (BRAIN INJURY FROM ELECTRICAL ACCIDENT) G8 SISTER V19 CHILD V19 CHILD V19 CHILD V19 CHILD No Family History of: Asthma Cerebrovascular disorder Congestive heart failure Diabetes insipidus Diabetes mellitus Parkinson's disease VTE VTE Risk Total Score: 0 VTE Risk Score VTE Risk: Score 0-1 = Low Risk (Aggressive mobilization; early ambulation; no VTE prophylaxis required) Score 2: Moderate Risk (Intermittent/Pneumatic Compression Device OR Lovenox/Heparin/Coumadin) Score 3-4: High Risk (Intermittent/Pneumatic Compression Device AND Lovenox/Heparin/Coumadin) Score > or =5: Highest Risk (Intermittent/Pneumatic Compression Device AND Lovenox/Heparin/Coumadin) Antico:Hep/LMWH/Coum/Xarelto: Yes Review of Systems Constitutional: No: Fever, Chills, Sweats, Weakness, Malaise Eyes: No: Pain, Vision change, Conjunctivae inflammation, Eyelid inflammation ENT: No: Nose pain, Nose discharge, Nose congestion, Mouth pain, Mouth swelling, Throat pain, Throat swelling, Other Respiratory: Cough, Shortness of breath; No: Sputum Cardiovascular: No: Chest Pain, Palpitations, Orthopnea, Paroxysmal Noc. Dyspnea, Edema Gastrointestinal: No: Nausea, Vomiting, Abdominal Pain Genitourinary: No Dysuria, No Frequency, No Incontinence, No Hematuria, No Retention Musculoskeletal: other; No: neck pain, shoulder pain, arm pain, back pain, hand pain, leg pain, foot pain Neurological: No: Weakness, Numbness Allergies: Coded Allergies: No Known Drug Allergies (Verified Allergy, Unknown, 06/03/20) Scheduled Dulaglutide (Trulicity), 0.75 MG SQ Q7D, (Reported) Gabapentin (Neurontin), 600 MG PO BID, (Reported) Olmesartan/Hydrochlorothiazide (Benicar Hct 20-12.5 Mg Tablet), 1 TAB PO DAILY, (Reported) Objective Vitals and I/O Vital Sign - Last 24 Hours 06/12/20 06/12/20 06/12/20 06/13/20 16:18 19:34 20:50 00:31 Temp 97.8 97.6 97.5 Pulse 73 73 77 68 Resp 23 22 20 20 B/P (MAP) 113/60 (77) 108/50 (69) 112/52 (72) Pulse Ox 94 93 92 94 O2 Delivery Nasal Canula Nasal Canula Nasal Cannula Nasal Canula O2 Flow Rate 6.00 6.00 6.00 6.00 FiO2 44 06/13/20 06/13/20 06/13/20 06/13/20 01:19 01:39 01:39 04:29 Temp 97.4 Pulse 75 Resp 20 B/P (MAP) 110/52 (71) Pulse Ox 94 O2 Delivery Nasal Cannula Nasal Cannula Nasal Cannula Nasal Canula O2 Flow Rate 6.00 06/13/20 06/13/20 06/13/20 06/13/20 07:55 09:00 09:00 09:06 Temp 98.0 Pulse 72 Resp 20 B/P (MAP) 127/61 (83) 127/61 127/61 Pulse Ox 90 O2 Delivery Nasal Canula Nasal Cannula O2 Flow Rate 6.00 6.00 06/13/20 10:13 Pulse 70 Resp 22 Pulse Ox 90 O2 Delivery Nasal Cannula O2 Flow Rate 6.00 FiO2 44 Intake and Output 06/13/20 07:00 Intake Total 1500 ml Output Total 600 ml Balance 900 ml General: Alert, Oriented X3, Cooperative, mild distress HEENT: Atraumatic, Mucous membr. moist/pink Neck: Supple Lungs: Clear to auscultation, Normal air movement Heart: Regular rate, No murmurs, Gallops, Rubs Abdomen: Normal bowel sounds, Soft, No tenderness Skin: No rashes, No significant lesion Neuro: Normal speech, Strength at 5/5 X4 ext, Normal tone, Cranial nerves 3-12 NL Psych/Mental Status: Mental status NL, Mood NL All Results(Lab/Rad) Laboratory Tests Test 06/07/20 15:00 06/07/20 19:50 06/08/20 04:35 06/08/20 05:47 Bedside Glucose 173 260 163 White Blood Count 16.3 10^3/uL Red Blood Count 4.42 10^6/uL Hemoglobin 13.2 g/dL Hematocrit 38.3 % Mean Corpuscular Volume 86.7 fL Mean Corpuscular Hemoglobin 29.9 pg Mean Corpuscular Hemoglobin Concent 34.5 g/dL Red Cell Distribution Width 12.7 % Platelet Count 402 10^3/uL Mean Platelet Volume 9.8 fL Neutrophils (%) (Auto) 87.2 % Lymphocytes (%) (Auto) 3.7 % Monocytes (%) (Auto) 4.7 % Neutrophils # (Auto) 14.2 10^3/uL Lymphocytes # (Auto) 0.60 10^3/uL1 Monocytes # (Auto) 0.8 10^3/uL Absolute Immature Granulocyte (auto 0.70 10^3 u/L Absolute Eosinophils (auto) 0.0 10^3/uL Immature Granulocytes % 4.30 % Eosinophils % 0.0 % Basophils % 0.1 % Basophils # 0.0 10^3/uL Sodium Level 141 mmol/L Potassium Level 3.7 mmol/L Chloride Level 104.0 mmol/L Carbon Dioxide Level 28.4 mmol/L Anion Gap 12.3 Blood Urea Nitrogen 42 mg/dL Creatinine 0.98 mg/dL Estimated GFR () 70.3 Est GFR (CKD-EPI)(Non-Afr [place]) 58.1 BUN/Creatinine Ratio 42.0 Glucose Level 192 mg/dL Calcium Level 9.1 mg/dL Total Bilirubin 0.4 mg/dL Aspartate Amino Transf (AST/SGOT) 37 U/L Alanine Aminotransferase (ALT/SGPT) 78 U/L Alkaline Phosphatase 55 U/L Total Protein 6.4 g/dL Albumin 2.6 g/dL Globulin 3.8 Albumin/Globulin Ratio 0.684 Test 06/08/20 07:03 06/08/20 08:05 Differential Total Cells Counted 100 #CELLS Segmented Neutrophils 88 % Band Neutrophils 1 % Lymphocytes 3 % Monocytes 7 % Metamyelocytes 1 % Platelet Estimate INCREASED Platelet Morphology NORMAL Blood Morphology Comment NORMAL MORPHOLOGY Bedside Glucose 175 Current Medications Medications (Trade) Dose Ordered Sig/Stas Route PRN Reason Start Time Stop Time Status Last Admin Dose Admin Ceftriaxone Sodium 1000 mg/ Sodium Chloride 100 ml @ 100 mls/hr STAT STAT IV 06/05/20 12:28 06/05/20 15:44 DC 06/05/20 12:56 Lorazepam (Ativan) 1 mg STAT STAT IV 06/05/20 12:33 06/05/20 15:44 DC 06/05/20 12:56 Ceftriaxone Sodium (Rocephin) 1,000 mg STK-MED ONCE .ROUTE 06/05/20 12:32 06/05/20 12:35 DC Enoxaparin Sodium (Lovenox) 90 mg STAT STAT SQ 06/05/20 13:39 06/05/20 13:41 DC Enoxaparin Sodium (Lovenox) 90 mg STAT STAT SQ 06/05/20 13:42 06/05/20 13:44 DC 06/05/20 14:15 Enoxaparin Sodium (Lovenox) 100 mg STK-MED ONCE SQ 06/05/20 13:42 06/05/20 13:44 DC Ceftriaxone Sodium 1000 mg/ Sodium Chloride 100 ml @ 100 mls/hr Q24HRS IV 06/06/20 13:00 07/06/20 12:59 06/07/20 12:56 Acetaminophen (Tylenol) 1,000 mg Q6H PRN PO PAIN 1 - 3 06/05/20 15:30 07/05/20 15:29 06/07/20 20:32 Zolpidem Tartrate (Ambien) 5 mg HS PRN PO INSOMNIA 06/05/20 15:30 07/05/20 15:29 06/07/20 20:32 Morphine Sulfate (Morphine Sulfate) 2 mg Q4H PRN IV PAIN 7 - 10 06/05/20 15:30 07/05/20 15:29 Insulin Human Lispro (Humalog) 0-140 0 Units 141-200... ACHS SQ 06/05/20 17:30 07/05/20 17:29 06/08/20 11:30 Dextrose (Dextrose 50%-Water Syringe) 25 ml STAT PRN IV HYPOGLYCEMIA 06/05/20 15:30 07/05/20 15:29 Guaifenesin (Mucinex) 1,200 mg BID PO 06/05/20 21:00 07/05/20 20:59 06/08/20 09:50 Zinc Sulfate (Zinc Sulfate) 220 mg STAT STAT PO 06/05/20 15:37 06/05/20 15:47 DC 06/05/20 17:31 Azithromycin 500 mg/Sodium Chloride 250 ml @ 175 mls/hr Q24HRS IV 06/05/20 16:00 06/05/20 17:50 DC Furosemide (Lasix) 20 mg STAT IV 06/05/20 16:00 07/05/20 15:59 06/05/20 22:09 Ascorbic Acid (Vitamin C) 500 mg BID PO 06/05/20 21:00 07/05/20 20:59 06/08/20 09:49 Insulin Glargine (Lantus) 10 unit HS SQ 06/05/20 21:00 07/05/20 20:59 06/07/20 20:08 Remdesivir 200 mg/ Sodium Chloride 140 ml @ 120.69 mls/ hr OT STAT IV 06/05/20 15:37 06/05/20 16:46 DC 06/05/20 17:31 Famotidine (Pepcid) 20 mg BID PO 06/05/20 21:00 07/05/20 20:59 06/08/20 09:49 Enoxaparin Sodium (Lovenox) 80 mg BID SQ 06/05/20 21:00 06/07/20 12:14 DC 06/07/20 09:29 Gabapentin (Neurontin) 600 mg BID PO 06/05/20 21:00 07/05/20 20:59 06/08/20 09:50 Losartan Potassium (Cozaar) 100 mg DAILY PO 06/06/20 09:00 07/06/20 08:59 06/07/20 09:29 Hydrochlorothiazide (Hydrochlorothiazide) 12.5 mg DAILY PO 06/06/20 09:00 07/06/20 08:59 06/07/20 09:29 Zinc Sulfate (Zinc Sulfate) 220 mg STK-MED ONCE .ROUTE 06/05/20 17:08 06/05/20 17:11 DC Azithromycin 500 mg/Sodium Chloride 250 ml @ 175 mls/hr Q24HRS IV 06/05/20 20:00 07/05/20 19:59 06/07/20 20:30 Sodium Chloride 250 ml @ ud STK-MED ONCE IV 06/05/20 20:50 06/05/20 20:52 DC Sodium Chloride 500 ml @ ud STK-MED ONCE IV 06/06/20 00:24 06/06/20 00:26 DC Remdesivir 100 mg/ Sodium Chloride 120 ml @ 111.111 mls/hr Q24HRS IV 06/06/20 15:00 06/09/20 16:05 06/07/20 15:11 Enoxaparin Sodium (Lovenox) 40 mg Q24HRS SQ 06/08/20 12:30 07/08/20 12:29 06/08/20 12:26 Course Sepsis Screening Results: Posi: POSITIVE Sepsis Qualifier/Stage: SEPSIS RISK Duration or Total Time Spent w: 15 min Vitals & review Data Vital Sign - Last 24 Hours 06/07/20 06/07/20 06/07/20 06/07/20 16:58 19:19 21:33 23:40 Temp 98.1 98.0 98.1 Pulse 53 62 76 Resp 19 18 18 B/P (MAP) 137/65 (89) 115/57 (76) 132/61 (84) Pulse Ox 93 95 97 O2 Delivery Non-Rebreather O2 Flow Rate 15.00 06/08/20 06/08/20 06/08/20 06/08/20 04:08 08:38 09:00 09:00 Temp 98.2 97.1 Pulse 82 66 Resp 18 19 B/P (MAP) 136/67 (90) 114/52 (72) 114/52 114/52 Pulse Ox 96 90 O2 Delivery Comfort Flow O2 Flow Rate 15.00 06/08/20 12:08 Temp 98.0 Pulse 67 Resp 20 B/P (MAP) 134/62 (86) Pulse Ox 90 Laboratory Tests Test 06/06/20 16:19 06/06/20 20:18 06/07/20 04:57 06/07/20 07:45 Bedside Glucose 203 216 169 165 Test 06/07/20 08:25 06/07/20 09:12 06/07/20 11:06 06/07/20 15:00 White Blood Count 13.4 10^3/uL Red Blood Count 4.77 10^6/uL Hemoglobin 14.0 g/dL Hematocrit 42.5 % Mean Corpuscular Volume 89.1 fL Mean Corpuscular Hemoglobin 29.4 pg Mean Corpuscular Hemoglobin Concent 32.9 g/dL Red Cell Distribution Width 13.0 % Platelet Count 348 10^3/uL Mean Platelet Volume 9.8 fL Neutrophils (%) (Auto) 83.5 % Lymphocytes (%) (Auto) 6.3 % Monocytes (%) (Auto) 5.3 % Neutrophils # (Auto) 11.2 10^3/uL Lymphocytes # (Auto) 0.85 10^3/uL1 Monocytes # (Auto) 0.7 10^3/uL Absolute Immature Granulocyte (auto 0.64 10^3 u/L Absolute Eosinophils (auto) 0.0 10^3/uL Immature Granulocytes % 4.80 % Eosinophils % 0.0 % Basophils % 0.1 % Basophils # 0.0 10^3/uL Sodium Level 141 mmol/L Potassium Level 3.5 mmol/L Chloride Level 103.0 mmol/L Carbon Dioxide Level 29.5 mmol/L Anion Gap 12.0 Blood Urea Nitrogen 45 mg/dL Creatinine 0.96 mg/dL Estimated GFR () 72.0 Est GFR (CKD-EPI)(Non-Afr [place]) 59.5 BUN/Creatinine Ratio 46.0 Glucose Level 194 mg/dL Calcium Level 9.2 mg/dL Total Bilirubin 0.4 mg/dL Aspartate Amino Transf (AST/SGOT) 84 U/L Alanine Aminotransferase (ALT/SGPT) 96 U/L Alkaline Phosphatase 62 U/L Total Protein 6.9 g/dL Albumin 2.8 g/dL Globulin 4.1 Albumin/Globulin Ratio 0.682 Differential Total Cells Counted 100 #CELLS Segmented Neutrophils 81 % Band Neutrophils 2 % Lymphocytes 9 % Monocytes 5 % Metamyelocytes 1 % Myelocytes 1 % Toxic Granulation 1+ Platelet Estimate ADEQUATE Platelet Morphology NORMAL Blood Morphology Comment NORMAL MORPHOLOGY Bedside Glucose 178 173 Test 06/07/20 19:50 12/6/20 04:35 06/08/20 05:47 06/08/20 07:03 Bedside Glucose 260 163 White Blood Count 16.3 10^3/uL Red Blood Count 4.42 10^6/uL Hemoglobin 13.2 g/dL Hematocrit 38.3 % Mean Corpuscular Volume 86.7 fL Mean Corpuscular Hemoglobin 29.9 pg Mean Corpuscular Hemoglobin Concent 34.5 g/dL Red Cell Distribution Width 12.7 % Platelet Count 402 10^3/uL Mean Platelet Volume 9.8 fL Neutrophils (%) (Auto) 87.2 % Lymphocytes (%) (Auto) 3.7 % Monocytes (%) (Auto) 4.7 % Neutrophils # (Auto) 14.2 10^3/uL Lymphocytes # (Auto) 0.60 10^3/uL1 Monocytes # (Auto) 0.8 10^3/uL Absolute Immature Granulocyte (auto 0.70 10^3 u/L Absolute Eosinophils (auto) 0.0 10^3/uL Immature Granulocytes % 4.30 % Eosinophils % 0.0 % Basophils % 0.1 % Basophils # 0.0 10^3/uL Sodium Level 141 mmol/L Potassium Level 3.7 mmol/L Chloride Level 104.0 mmol/L Carbon Dioxide Level 28.4 mmol/L Anion Gap 12.3 Blood Urea Nitrogen 42 mg/dL Creatinine 0.98 mg/dL Estimated GFR () 70.3 Est GFR (CKD-EPI)(Non-Afr [place]) 58.1 BUN/Creatinine Ratio 42.0 Glucose Level 192 mg/dL Calcium Level 9.1 mg/dL Total Bilirubin 0.4 mg/dL Aspartate Amino Transf (AST/SGOT) 37 U/L Alanine Aminotransferase (ALT/SGPT) 78 U/L Alkaline Phosphatase 55 U/L Total Protein 6.4 g/dL Albumin 2.6 g/dL Globulin 3.8 Albumin/Globulin Ratio 0.684 Differential Total Cells Counted 100 #CELLS Segmented Neutrophils 88 % Band Neutrophils 1 % Lymphocytes 3 % Monocytes 7 % Metamyelocytes 1 % Platelet Estimate INCREASED Platelet Morphology NORMAL Blood Morphology Comment NORMAL MORPHOLOGY Test 06/08/20 08:05 Bedside Glucose 175 Current Medications Medications (Trade) Dose Ordered Sig/Stas PRN Reason Start Time Stop Time Status Last Admin Acetaminophen (Tylenol) 1,000 mg Q6H PRN PAIN 1 - 3 06/05/20 15:30 07/05/20 15:29 06/07/20 20:32 Ascorbic Acid (Vitamin C) 500 mg BID 06/05/20 21:00 07/05/20 20:59 06/08/20 09:49 Azithromycin 500 mg/Sodium Chloride 250 ml @ 175 mls/hr Q24HRS 06/05/20 20:00 07/05/20 19:59 06/07/20 20:30 Ceftriaxone Sodium 1000 mg/ Sodium Chloride 100 ml @ 100 mls/hr Q24HRS 06/06/20 13:00 07/06/20 12:59 06/07/20 12:56 Dextrose (Dextrose 50%-Water Syringe) 25 ml STAT PRN HYPOGLYCEMIA 06/05/20 15:30 07/05/20 15:29 Enoxaparin Sodium (Lovenox) 40 mg Q24HRS 06/08/20 12:30 07/08/20 12:29 06/08/20 12:26 Famotidine (Pepcid) 20 mg BID 06/05/20 21:00 07/05/20 20:59 06/08/20 09:49 Furosemide (Lasix) 20 mg STAT 06/05/20 16:00 07/05/20 15:59 06/05/20 22:09 Gabapentin (Neurontin) 600 mg BID 06/05/20 21:00 07/05/20 20:59 06/08/20 09:50 Guaifenesin (Mucinex) 1,200 mg BID 06/05/20 21:00 07/05/20 20:59 06/08/20 09:50 Hydrochlorothiazide (Hydrochlorothiazide) 12.5 mg DAILY 06/06/20 09:00 07/06/20 08:59 06/07/20 09:29 Insulin Glargine (Lantus) 10 unit HS 06/05/20 21:00 07/05/20 20:59 06/07/20 20:08 Insulin Human Lispro (Humalog) 0-140 0 Units 141-200... ACHS 06/05/20 17:30 07/05/20 17:29 06/08/20 11:30 Losartan Potassium (Cozaar) 100 mg DAILY 06/06/20 09:00 07/06/20 08:59 06/07/20 09:29 Morphine Sulfate (Morphine Sulfate) 2 mg Q4H PRN PAIN 7 - 10 06/05/20 15:30 07/05/20 15:29 Remdesivir 100 mg/ Sodium Chloride 120 ml @ 111.111 mls/hr Q24HRS 06/06/20 15:00 06/09/20 16:05 06/07/20 15:11 Zolpidem Tartrate (Ambien) 5 mg HS PRN INSOMNIA 06/05/20 15:30 07/05/20 15:29 06/07/20 20:32 LEVEL 1 SEPSIS INFECTION CRITE: ABX Therapy, Cough/Shortness of Breath LEVEL 2-SIRS (LIST ALL THAT AP: [id number] Cardiovascular Evidence: Not Assessed or None Hematologic Evidence: None/Not assessed Hepatic Evidence: None/Not assessed Metabolic Evidence: None/Not assessed Neurological Evidence: None/Not assessed Respiratory Evidence: Acute Resp failure, Need for O2 to keep>90%, O2 SAT<90room air Renal Evidence: None/Not assessed O2 Sat by Pulse Oximetry: 90 Oxygen Flow Rate: 6.00 Assessment/Plan Assessment/Plan Assessment/Plan 1. Pneumonia, Likely related to Covid 19 2.COVID-19 Infection 3. Essential (primary) hypertension 4. Diabetes mellitus Uncontrolled Plan 1. Pneumonia, Likely related to Covid 19 White count elevated at 18,000 could be from a stress as well as from Covid oral steroids Patient still requires oxygen 6 L via nasal cannula to keep sats above 90%. Chest x-ray shows multifocal infiltrates and ground-glass opacities scattered throughout both lungs. The findings are commonly reported imaging features of COVID-19 pneumonia. Patient white count is coming down from 18,000-16,000. Plan Continue oxygen to keep saturation above 90% continue current management with Combination of remdesivir, azithromycin, ceftriaxone, vitamin C, dexamethasone, Lovenox 80 mg subcu every 24 hours Try to wean from oxygen. 2.COVID-19 Infection Improving, continue current management with medication, O2 and IS. 3. Essential (primary) hypertension Stable, Patient is currently on losartan and HCTZ 4. Diabetes mellitus. Appears to be out of control because of the steroid use. Blood sugar [id number] Plan continue Regular Insulin sliding scale and Lantus 20 units daily. Patient is on a diabetic diet Enoxaparin for VTE/DVT PPX Pepcid for GI PPX Full code DAVID HITCHCOCK MD Jun 13, 2020 12:56
[2020-06-13] MEDS: ROCEPHIN 1,000 MG in NS 100ML 100 ML IV SCH (17:00)
[2020-06-13] MEDS ORDERED: NS 250ML 250 ML IV ONE (20:43)
[2020-06-13] MEDS: LANTUS SQ SCH (20:49)
[2020-06-13] MEDS: ZITHROMAX 500 MG in NS 250ML 250 ML IV SCH (20:52)
[2020-06-13] MEDS: DEXAMETHASONE 10 MG/ML VIAL IV SCH (21:11)
[2020-06-14 06:02] VITALS: BP 105/51
[2020-06-14] MEDS: HUMALOG SQ SCH ×4 (07:14→20:56)
[2020-06-14 07:18] LABS: BASOPHIL % 0.1 % (0.0-0.2); EOSINOPHIL % 0.1 % (0.0-5.0); LYMPHOCYTES # 0.39 10^3/uL1 (1.0-4.8); LYMPHOCYTES % 2.4 % (24.0-44.0); MEAN CORP HGB 29.7 pg (26-34); MONOCYTES # 0.7 10^3/uL (0.3-0.8); MONOCYTES % 4.5 % (5.0-12.0); NEUTROPHIL # 15.2 10^3/uL (1.8-7.7); NEUTROPHILS % 91.7 % (41.0-85.0); PLATELET COUNT 330 10^3/uL (150-400); RED CELL DISTRIBUTION WIDTH 13.3 % (11.5-14.5)
[2020-06-14 07:46] LABS: CALCIUM 8.3 mg/dL (8.4-10.5); CARBON DIOXIDE 27.5 mmol/L (20.0-32)
[2020-06-14] MEDS: REMDESIVIR (EUA) 100 MG in NS 100ML 100 ML IV SCH (08:20)
[2020-06-14 08:37] LABS: LYMPHOCYTE 1 % (25-36); MONOCYTE 6 % (3-9); SEGMENTED NEUTROPHILS 93 % (31-76)
[2020-06-14] MEDS: COZAAR PO SCH (08:56)
[2020-06-14] MEDS: NEURONTIN PO SCH ×2 (08:58→21:00)
[2020-06-14] MEDS: MUCINEX PO SCH ×2 (08:58→21:00)
[2020-06-14] MEDS: PEPCID PO SCH ×2 (08:58→21:00)
[2020-06-14] MEDS: HYDROCHLOROTHIAZIDE PO SCH (08:58)
[2020-06-14] MEDS: VITAMIN C PO SCH ×2 (08:58→21:00)
[2020-06-14 09:11] VITALS: BP 96/49
--- NOTE | 2020-06-14 11:43 | PRM.PN ---
Subjective Subjective Date: Jun 14, 2020 Time: 11:44 Subjective 06/12/2020 Patient states that she is feeling better today we did discuss her 's condition who is in the ICU that he is still critical and at risk for acute deterioration at any time she wishes to continue cardiac arrhythmia medication should he have repeat episodes of SVT or V. fib however she does not want chest compressions or full CPR. We discussed that his creatinine is improving however his uremia persists. He is currently not stable on the ventilator or from a cardiac standpoint to transfer to [place] for dialysis but if we can improve his lungs he may be able to transport for dialysis if his creatinine does not continue to improve and he remains uremic. Patient complaint of cough and shortness of breath. Denies any diarrhea blood in the stool. Denies any leg swelling. She still need oxygen to keep saturation above 90%. Denies any fever. 06/13/2020 Denies any fever today. Appears with decrease of the shortness of breath. The cough is dry. She denies any abdominal pain or diarrhea. 06/14/2020. She still feels winded when she walked. She required oxygen continuously. Denies any shortness of breath or chest pain. Denies any diarrhea or fever. Patient History: Alzheimer's disease 33 FATHER, , Age:73 Chronic obstructive pulmonary disease G8 BROTHER FH: diverticulitis Hypertension 32 MOTHER, , Age:72 No known health problems G8 BROTHER (BRAIN INJURY FROM ELECTRICAL ACCIDENT) G8 SISTER V19 CHILD V19 CHILD V19 CHILD V19 CHILD No Family History of: Asthma Cerebrovascular disorder Congestive heart failure Diabetes insipidus Diabetes mellitus Parkinson's disease VTE VTE Risk Total Score: 0 VTE Risk Score VTE Risk: Score 0-1 = Low Risk (Aggressive mobilization; early ambulation; no VTE prophylaxis required) Score 2: Moderate Risk (Intermittent/Pneumatic Compression Device OR Lovenox/Heparin/Coumadin) Score 3-4: High Risk (Intermittent/Pneumatic Compression Device AND Lovenox/Heparin/Coumadin) Score > or =5: Highest Risk (Intermittent/Pneumatic Compression Device AND Lovenox/Heparin/Coumadin) Antico:Hep/LMWH/Coum/Xarelto: Yes Review of Systems Constitutional: No: Fever, Chills, Sweats, Weakness, Malaise Eyes: No: Pain, Vision change, Conjunctivae inflammation, Eyelid inflammation ENT: No: Nose pain, Nose discharge, Nose congestion, Mouth pain, Mouth swelling, Throat pain, Throat swelling, Other Respiratory: Cough, Shortness of breath; No: Sputum Cardiovascular: No: Chest Pain, Palpitations, Orthopnea, Paroxysmal Noc. Dyspnea, Edema Gastrointestinal: No: Nausea, Vomiting, Abdominal Pain Genitourinary: No Dysuria, No Frequency, No Incontinence, No Hematuria, No Retention Musculoskeletal: other; No: neck pain, shoulder pain, arm pain, back pain, hand pain, leg pain, foot pain Neurological: No: Weakness, Numbness Allergies: Coded Allergies: No Known Drug Allergies (Verified Allergy, Unknown, 06/03/20) Scheduled Dulaglutide (Trulicity), 0.75 MG SQ Q7D, (Reported) Gabapentin (Neurontin), 600 MG PO BID, (Reported) Olmesartan/Hydrochlorothiazide (Benicar Hct 20-12.5 Mg Tablet), 1 TAB PO DAILY, (Reported) Objective Vitals and I/O Vital Sign - Last 24 Hours 06/13/20 06/13/20 06/13/20 06/13/20 12:15 18:45 20:35 20:50 Temp 97.9 98.1 98.3 Pulse 73 75 75 70 Resp 20 20 20 18 B/P (MAP) 101/54 (70) 111/49 (69) 108/52 (70) Pulse Ox 91 91 93 95 O2 Delivery Nasal Canula Nasal Canula Nasal Canula Nasal Cannula O2 Flow Rate 6.00 6.00 6.00 6.00 FiO2 44 06/13/20 06/13/20 06/14/20 06/14/20 22:10 23:49 06:02 07:48 Temp 98.2 98.0 Pulse 73 62 Resp 20 20 B/P (MAP) 112/59 (76) 105/51 (69) Pulse Ox 92 93 O2 Delivery Nasal Cannula Nasal Canula Nasal Canula Nasal Cannula O2 Flow Rate 6.00 6.00 6.00 5.00 06/14/20 06/14/20 06/14/20 08:56 08:58 09:11 Temp 97.8 Pulse 80 Resp 20 B/P (MAP) 96/49 96/49 96/49 (65) Pulse Ox 92 Intake and Output 06/14/20 07:00 Output Total 1090 ml Balance -1090 ml General: Alert, Oriented X3, Cooperative, mild distress HEENT: Atraumatic, Mucous membr. moist/pink Neck: Supple Lungs: Clear to auscultation, Normal air movement Heart: Regular rate, No murmurs, Gallops, Rubs Abdomen: Normal bowel sounds, Soft, No tenderness Skin: No rashes, No significant lesion Neuro: Normal speech, Strength at 5/5 X4 ext, Normal tone, Cranial nerves 3-12 NL Psych/Mental Status: Mental status NL, Mood NL All Results(Lab/Rad) Laboratory Tests Test 06/07/20 15:00 06/07/20 19:50 06/08/20 04:35 06/08/20 05:47 Bedside Glucose 173 260 163 White Blood Count 16.3 10^3/uL Red Blood Count 4.42 10^6/uL Hemoglobin 13.2 g/dL Hematocrit 38.3 % Mean Corpuscular Volume 86.7 fL Mean Corpuscular Hemoglobin 29.9 pg Mean Corpuscular Hemoglobin Concent 34.5 g/dL Red Cell Distribution Width 12.7 % Platelet Count 402 10^3/uL Mean Platelet Volume 9.8 fL Neutrophils (%) (Auto) 87.2 % Lymphocytes (%) (Auto) 3.7 % Monocytes (%) (Auto) 4.7 % Neutrophils # (Auto) 14.2 10^3/uL Lymphocytes # (Auto) 0.60 10^3/uL1 Monocytes # (Auto) 0.8 10^3/uL Absolute Immature Granulocyte (auto 0.70 10^3 u/L Absolute Eosinophils (auto) 0.0 10^3/uL Immature Granulocytes % 4.30 % Eosinophils % 0.0 % Basophils % 0.1 % Basophils # 0.0 10^3/uL Sodium Level 141 mmol/L Potassium Level 3.7 mmol/L Chloride Level 104.0 mmol/L Carbon Dioxide Level 28.4 mmol/L Anion Gap 12.3 Blood Urea Nitrogen 42 mg/dL Creatinine 0.98 mg/dL Estimated GFR () 70.3 Est GFR (CKD-EPI)(Non-Afr Malaysian) 58.1 BUN/Creatinine Ratio 42.0 Glucose Level 192 mg/dL Calcium Level 9.1 mg/dL Total Bilirubin 0.4 mg/dL Aspartate Amino Transf (AST/SGOT) 37 U/L Alanine Aminotransferase (ALT/SGPT) 78 U/L Alkaline Phosphatase 55 U/L Total Protein 6.4 g/dL Albumin 2.6 g/dL Globulin 3.8 Albumin/Globulin Ratio 0.684 Test 06/08/20 07:03 06/08/20 08:05 Differential Total Cells Counted 100 #CELLS Segmented Neutrophils 88 % Band Neutrophils 1 % Lymphocytes 3 % Monocytes 7 % Metamyelocytes 1 % Platelet Estimate INCREASED Platelet Morphology NORMAL Blood Morphology Comment NORMAL MORPHOLOGY Bedside Glucose 175 Current Medications Medications (Trade) Dose Ordered Sig/Stas Route PRN Reason Start Time Stop Time Status Last Admin Dose Admin Ceftriaxone Sodium 1000 mg/ Sodium Chloride 100 ml @ 100 mls/hr STAT STAT IV 06/05/20 12:28 06/05/20 15:44 DC 06/05/20 12:56 Lorazepam (Ativan) 1 mg STAT STAT IV 06/05/20 12:33 06/05/20 15:44 DC 06/05/20 12:56 Ceftriaxone Sodium (Rocephin) 1,000 mg STK-MED ONCE .ROUTE 06/05/20 12:32 06/05/20 12:35 DC Enoxaparin Sodium (Lovenox) 90 mg STAT STAT SQ 06/05/20 13:39 06/05/20 13:41 DC Enoxaparin Sodium (Lovenox) 90 mg STAT STAT SQ 06/05/20 13:42 06/05/20 13:44 DC 06/05/20 14:15 Enoxaparin Sodium (Lovenox) 100 mg STK-MED ONCE SQ 06/05/20 13:42 06/05/20 13:44 DC Ceftriaxone Sodium 1000 mg/ Sodium Chloride 100 ml @ 100 mls/hr Q24HRS IV 06/06/20 13:00 07/06/20 12:59 06/07/20 12:56 Acetaminophen (Tylenol) 1,000 mg Q6H PRN PO PAIN 1 - 3 06/05/20 15:30 07/05/20 15:29 06/07/20 20:32 Zolpidem Tartrate (Ambien) 5 mg HS PRN PO INSOMNIA 06/05/20 15:30 07/05/20 15:29 06/07/20 20:32 Morphine Sulfate (Morphine Sulfate) 2 mg Q4H PRN IV PAIN 7 - 10 06/05/20 15:30 07/05/20 15:29 Insulin Human Lispro (Humalog) 0-140 0 Units 141-200... ACHS SQ 06/05/20 17:30 07/05/20 17:29 06/08/20 11:30 Dextrose (Dextrose 50%-Water Syringe) 25 ml STAT PRN IV HYPOGLYCEMIA 06/05/20 15:30 07/05/20 15:29 Guaifenesin (Mucinex) 1,200 mg BID PO 06/05/20 21:00 07/05/20 20:59 06/08/20 09:50 Zinc Sulfate (Zinc Sulfate) 220 mg STAT STAT PO 06/05/20 15:37 06/05/20 15:47 DC 06/05/20 17:31 Azithromycin 500 mg/Sodium Chloride 250 ml @ 175 mls/hr Q24HRS IV 06/05/20 16:00 06/05/20 17:50 DC Furosemide (Lasix) 20 mg STAT IV 06/05/20 16:00 07/05/20 15:59 06/05/20 22:09 Ascorbic Acid (Vitamin C) 500 mg BID PO 06/05/20 21:00 07/05/20 20:59 06/08/20 09:49 Insulin Glargine (Lantus) 10 unit HS SQ 06/05/20 21:00 07/05/20 20:59 06/07/20 20:08 Remdesivir 200 mg/ Sodium Chloride 140 ml @ 120.69 mls/ hr OT STAT IV 06/05/20 15:37 06/05/20 16:46 DC 06/05/20 17:31 Famotidine (Pepcid) 20 mg BID PO 06/05/20 21:00 07/05/20 20:59 06/08/20 09:49 Enoxaparin Sodium (Lovenox) 80 mg BID SQ 06/05/20 21:00 06/07/20 12:14 DC 06/07/20 09:29 Gabapentin (Neurontin) 600 mg BID PO 06/05/20 21:00 07/05/20 20:59 06/08/20 09:50 Losartan Potassium (Cozaar) 100 mg DAILY PO 06/06/20 09:00 07/06/20 08:59 06/07/20 09:29 Hydrochlorothiazide (Hydrochlorothiazide) 12.5 mg DAILY PO 06/06/20 09:00 07/06/20 08:59 06/07/20 09:29 Zinc Sulfate (Zinc Sulfate) 220 mg STK-MED ONCE .ROUTE 06/05/20 17:08 06/05/20 17:11 DC Azithromycin 500 mg/Sodium Chloride 250 ml @ 175 mls/hr Q24HRS IV 06/05/20 20:00 07/05/20 19:59 06/07/20 20:30 Sodium Chloride 250 ml @ ud STK-MED ONCE IV 06/05/20 20:50 06/05/20 20:52 DC Sodium Chloride 500 ml @ ud STK-MED ONCE IV 06/06/20 00:24 06/06/20 00:26 DC Remdesivir 100 mg/ Sodium Chloride 120 ml @ 111.111 mls/hr Q24HRS IV 06/06/20 15:00 06/09/20 16:05 06/07/20 15:11 Enoxaparin Sodium (Lovenox) 40 mg Q24HRS SQ 06/08/20 12:30 07/08/20 12:29 06/08/20 12:26 Course Sepsis Screening Results: Posi: POSITIVE Sepsis Qualifier/Stage: SEPSIS RISK Duration or Total Time Spent w: 15 min Vitals & review Data Vital Sign - Last 24 Hours 06/07/20 06/07/20 06/07/20 06/07/20 16:58 19:19 21:33 23:40 Temp 98.1 98.0 98.1 Pulse 53 62 76 Resp 19 18 18 B/P (MAP) 137/65 (89) 115/57 (76) 132/61 (84) Pulse Ox 93 95 97 O2 Delivery Non-Rebreather O2 Flow Rate 15.00 06/08/20 06/08/20 06/08/20 06/08/20 04:08 08:38 09:00 09:00 Temp 98.2 97.1 Pulse 82 66 Resp 18 19 B/P (MAP) 136/67 (90) 114/52 (72) 114/52 114/52 Pulse Ox 96 90 O2 Delivery Comfort Flow O2 Flow Rate 15.00 06/08/20 12:08 Temp 98.0 Pulse 67 Resp 20 B/P (MAP) 134/62 (86) Pulse Ox 90 Laboratory Tests Test 06/06/20 16:19 06/06/20 20:18 06/07/20 04:57 06/07/20 07:45 Bedside Glucose 203 216 169 165 Test 06/07/20 08:25 06/07/20 09:12 06/07/20 11:06 06/07/20 15:00 White Blood Count 13.4 10^3/uL Red Blood Count 4.77 10^6/uL Hemoglobin 14.0 g/dL Hematocrit 42.5 % Mean Corpuscular Volume 89.1 fL Mean Corpuscular Hemoglobin 29.4 pg Mean Corpuscular Hemoglobin Concent 32.9 g/dL Red Cell Distribution Width 13.0 % Platelet Count 348 10^3/uL Mean Platelet Volume 9.8 fL Neutrophils (%) (Auto) 83.5 % Lymphocytes (%) (Auto) 6.3 % Monocytes (%) (Auto) 5.3 % Neutrophils # (Auto) 11.2 10^3/uL Lymphocytes # (Auto) 0.85 10^3/uL1 Monocytes # (Auto) 0.7 10^3/uL Absolute Immature Granulocyte (auto 0.64 10^3 u/L Absolute Eosinophils (auto) 0.0 10^3/uL Immature Granulocytes % 4.80 % Eosinophils % 0.0 % Basophils % 0.1 % Basophils # 0.0 10^3/uL Sodium Level 141 mmol/L Potassium Level 3.5 mmol/L Chloride Level 103.0 mmol/L Carbon Dioxide Level 29.5 mmol/L Anion Gap 12.0 Blood Urea Nitrogen 45 mg/dL Creatinine 0.96 mg/dL Estimated GFR () 72.0 Est GFR (CKD-EPI)(Non-Afr Malaysian) 59.5 BUN/Creatinine Ratio 46.0 Glucose Level 194 mg/dL Calcium Level 9.2 mg/dL Total Bilirubin 0.4 mg/dL Aspartate Amino Transf (AST/SGOT) 84 U/L Alanine Aminotransferase (ALT/SGPT) 96 U/L Alkaline Phosphatase 62 U/L Total Protein 6.9 g/dL Albumin 2.8 g/dL Globulin 4.1 Albumin/Globulin Ratio 0.682 Differential Total Cells Counted 100 #CELLS Segmented Neutrophils 81 % Band Neutrophils 2 % Lymphocytes 9 % Monocytes 5 % Metamyelocytes 1 % Myelocytes 1 % Toxic Granulation 1+ Platelet Estimate ADEQUATE Platelet Morphology NORMAL Blood Morphology Comment NORMAL MORPHOLOGY Bedside Glucose 178 173 Test 06/07/20 19:50 06/08/20 04:35 06/08/20 05:47 06/08/20 07:03 Bedside Glucose 260 163 White Blood Count 16.3 10^3/uL Red Blood Count 4.42 10^6/uL Hemoglobin 13.2 g/dL Hematocrit 38.3 % Mean Corpuscular Volume 86.7 fL Mean Corpuscular Hemoglobin 29.9 pg Mean Corpuscular Hemoglobin Concent 34.5 g/dL Red Cell Distribution Width 12.7 % Platelet Count 402 10^3/uL Mean Platelet Volume 9.8 fL Neutrophils (%) (Auto) 87.2 % Lymphocytes (%) (Auto) 3.7 % Monocytes (%) (Auto) 4.7 % Neutrophils # (Auto) 14.2 10^3/uL Lymphocytes # (Auto) 0.60 10^3/uL1 Monocytes # (Auto) 0.8 10^3/uL Absolute Immature Granulocyte (auto 0.70 10^3 u/L Absolute Eosinophils (auto) 0.0 10^3/uL Immature Granulocytes % 4.30 % Eosinophils % 0.0 % Basophils % 0.1 % Basophils # 0.0 10^3/uL Sodium Level 141 mmol/L Potassium Level 3.7 mmol/L Chloride Level 104.0 mmol/L Carbon Dioxide Level 28.4 mmol/L Anion Gap 12.3 Blood Urea Nitrogen 42 mg/dL Creatinine 0.98 mg/dL Estimated GFR () 70.3 Est GFR (CKD-EPI)(Non-Afr Malaysian) 58.1 BUN/Creatinine Ratio 42.0 Glucose Level 192 mg/dL Calcium Level 9.1 mg/dL Total Bilirubin 0.4 mg/dL Aspartate Amino Transf (AST/SGOT) 37 U/L Alanine Aminotransferase (ALT/SGPT) 78 U/L Alkaline Phosphatase 55 U/L Total Protein 6.4 g/dL Albumin 2.6 g/dL Globulin 3.8 Albumin/Globulin Ratio 0.684 Differential Total Cells Counted 100 #CELLS Segmented Neutrophils 88 % Band Neutrophils 1 % Lymphocytes 3 % Monocytes 7 % Metamyelocytes 1 % Platelet Estimate INCREASED Platelet Morphology NORMAL Blood Morphology Comment NORMAL MORPHOLOGY Test 06/08/20 08:05 Bedside Glucose 175 Current Medications Medications (Trade) Dose Ordered Sig/Stas PRN Reason Start Time Stop Time Status Last Admin Acetaminophen (Tylenol) 1,000 mg Q6H PRN PAIN 1 - 3 06/05/20 15:30 07/05/20 15:29 06/07/20 20:32 Ascorbic Acid (Vitamin C) 500 mg BID 06/05/20 21:00 07/05/20 20:59 06/08/20 09:49 Azithromycin 500 mg/Sodium Chloride 250 ml @ 175 mls/hr Q24HRS 06/05/20 20:00 07/05/20 19:59 06/07/20 20:30 Ceftriaxone Sodium 1000 mg/ Sodium Chloride 100 ml @ 100 mls/hr Q24HRS 06/06/20 13:00 07/06/20 12:59 06/07/20 12:56 Dextrose (Dextrose 50%-Water Syringe) 25 ml STAT PRN HYPOGLYCEMIA 06/05/20 15:30 07/05/20 15:29 Enoxaparin Sodium (Lovenox) 40 mg Q24HRS 06/08/20 12:30 07/08/20 12:29 06/08/20 12:26 Famotidine (Pepcid) 20 mg BID 06/05/20 21:00 07/05/20 20:59 06/08/20 09:49 Furosemide (Lasix) 20 mg STAT 06/05/20 16:00 07/05/20 15:59 06/05/20 22:09 Gabapentin (Neurontin) 600 mg BID 06/05/20 21:00 07/05/20 20:59 06/08/20 09:50 Guaifenesin (Mucinex) 1,200 mg BID 06/05/20 21:00 07/05/20 20:59 06/08/20 09:50 Hydrochlorothiazide (Hydrochlorothiazide) 12.5 mg DAILY 06/06/20 09:00 07/06/20 08:59 06/07/20 09:29 Insulin Glargine (Lantus) 10 unit HS 06/05/20 21:00 07/05/20 20:59 06/07/20 20:08 Insulin Human Lispro (Humalog) 0-140 0 Units 141-200... ACHS 06/05/20 17:30 07/05/20 17:29 06/08/20 11:30 Losartan Potassium (Cozaar) 100 mg DAILY 06/06/20 09:00 07/06/20 08:59 12/5/20 09:29 Morphine Sulfate (Morphine Sulfate) 2 mg Q4H PRN PAIN 7 - 10 06/05/20 15:30 07/05/20 15:29 Remdesivir 100 mg/ Sodium Chloride 120 ml @ 111.111 mls/hr Q24HRS 06/06/20 15:00 06/09/20 16:05 06/07/20 15:11 Zolpidem Tartrate (Ambien) 5 mg HS PRN INSOMNIA 06/05/20 15:30 07/05/20 15:29 06/07/20 20:32 LEVEL 1 SEPSIS INFECTION CRITE: ABX Therapy, Cough/Shortness of Breath LEVEL 2-SIRS (LIST ALL THAT AP: [id number] Cardiovascular Evidence: Not Assessed or None Hematologic Evidence: None/Not assessed Hepatic Evidence: None/Not assessed Metabolic Evidence: None/Not assessed Neurological Evidence: None/Not assessed Respiratory Evidence: Need for O2 to keep>90%, O2 SAT<90room air Renal Evidence: None/Not assessed O2 Sat by Pulse Oximetry: 92 Oxygen Flow Rate: 5.00 Assessment/Plan Assessment/Plan Assessment/Plan 1. Pneumonia, Likely related to Covid 19 2.COVID-19 Infection I 3. Essential (primary) hypertension 4. Diabetes mellitus. Appears to be out of control because of the steroid use. Blood sugar [id number] Plan 1. Pneumonia, Likely related to Covid 19 White count elevated at 18,000 could be from a stress as well as from Covid oral steroids Patient still requires oxygen 6 L via nasal cannula to keep sats above 90%. Chest x-ray shows multifocal infiltrates and ground-glass opacities scattered throughout both lungs. The findings are commonly reported imaging features of COVID-19 pneumonia. Patient white count is coming down from 18,000-16,000.White count elevation likely related to the steroid treatment. Patient saturation is 92% on 6 L nasal cannula. Patient is working on the incentive spirometry and increase activity. 06/14/2020Labs shows a sodium 134, potassium 3.7, BUN 18 creatinine 0.8 Plan Continue oxygen to keep saturation above 90% continue current management with Combination of remdesivir, azithromycin, ceftriaxone, vitamin C, dexamethasone, Lovenox 80 mg subcu every 24 hours Try to wean from oxygen.. Patient is still requires oxygen at 6 L to keep saturation above 90. Present saturation 92% 2.COVID-19 Infection Improving, continue current management with medication, O2 and IS. Plan Follow inflammatory markers. 3. Essential (primary) hypertension Stable, Patient is currently on losartan and HCTZ 4. Diabetes mellitus. Appears to be out of control because of the steroid use. Blood sugar [id number] Plan continue Regular Insulin sliding scale and Lantus 20 units daily. Patient is on a diabetic diet Enoxaparin for VTE/DVT PPX Pepcid for GI PPX Full code DAVID HITCHCOCK MD Jun 14, 2020 11:43
[2020-06-14] MEDS: LOVENOX SQ SCH (12:00)
[2020-06-14 12:47] VITALS: BP 94/47
[2020-06-14] MEDS: ROCEPHIN 1,000 MG in NS 100ML 100 ML IV SCH (16:02)
[2020-06-14 16:54] VITALS: BP 98/49
[2020-06-14 19:55] VITALS: BP 101/46
[2020-06-14] MEDS: ZITHROMAX 500 MG in NS 250ML 250 ML IV SCH (20:00)
[2020-06-14] MEDS: LANTUS SQ SCH (20:57)
[2020-06-15 00:21] VITALS: BP 104/50
[2020-06-15 04:21] VITALS: BP 106/52
[2020-06-15 07:05] LABS: BASOPHIL % 0.1 % (0.0-0.2); EOSINOPHIL # 0.3 10^3/uL (0.0-0.2); EOSINOPHIL % 1.6 % (0.0-5.0); LYMPHOCYTES # 0.95 10^3/uL1 (1.0-4.8); LYMPHOCYTES % 5.5 % (24.0-44.0); MEAN CORP HGB 29.7 pg (26-34); MONOCYTES # 1.1 10^3/uL (0.3-0.8); MONOCYTES % 6.6 % (5.0-12.0); NEUTROPHIL # 14.8 10^3/uL (1.8-7.7); NEUTROPHILS % 85.3 % (41.0-85.0); PLATELET COUNT 334 10^3/uL (150-400); RED CELL DISTRIBUTION WIDTH 13.5 % (11.5-14.5)
[2020-06-15] MEDS: HUMALOG SQ SCH ×4 (07:24→20:33)
[2020-06-15 07:30] LABS: CALCIUM 8.2 mg/dL (8.4-10.5); CARBON DIOXIDE 29.4 mmol/L (20.0-32)
[2020-06-15 07:53] LABS: LYMPHOCYTE 1 % (25-36); MONOCYTE 3 % (3-9); SEGMENTED NEUTROPHILS 96 % (31-76)
[2020-06-15] MEDS: PEPCID PO SCH ×2 (08:09→21:00)
[2020-06-15] MEDS: MUCINEX PO SCH ×2 (08:09→21:00)
[2020-06-15] MEDS: NEURONTIN PO SCH ×2 (08:09→21:00)
[2020-06-15] MEDS: VITAMIN C PO SCH ×2 (08:09→21:00)
[2020-06-15] MEDS: HYDROCHLOROTHIAZIDE PO SCH (08:11)
[2020-06-15] MEDS: COZAAR PO SCH (08:11)
[2020-06-15 08:23] VITALS: BP 95/44
[2020-06-15] MEDS: REMDESIVIR (EUA) 100 MG in NS 100ML 100 ML IV SCH (09:00)
--- NOTE | 2020-06-15 09:26 | PRM.PN ---
Subjective Subjective Date: Jun 15, 2020 Time: 09:20 Subjective 06/12/2020 Patient states that she is feeling better today we did discuss her 's condition who is in the ICU that he is still critical and at risk for acute deterioration at any time she wishes to continue cardiac arrhythmia medication should he have repeat episodes of SVT or V. fib however she does not want chest compressions or full CPR. We discussed that his creatinine is improving however his uremia persists. He is currently not stable on the ventilator or from a cardiac standpoint to transfer to [place] for dialysis but if we can improve his lungs he may be able to transport for dialysis if his creatinine does not continue to improve and he remains uremic. Patient complaint of cough and shortness of breath. Denies any diarrhea blood in the stool. Denies any leg swelling. She still need oxygen to keep saturation above 90%. Denies any fever. 06/13/2020 Denies any fever today. Appears with decrease of the shortness of breath. The cough is dry. She denies any abdominal pain or diarrhea. 06/14/2020. She still feels winded when she walked. She required oxygen continuously. Denies any shortness of breath or chest pain. Denies any diarrhea or fever. 06/15/2020. Patient blood pressure is in the lower side on the 190s. Holding parameters for medications were written. Patient referred improvement slowly of the shortness of breath. Denies chest pain or palpitations. Patient History: Alzheimer's disease 33 FATHER, , Age:73 Chronic obstructive pulmonary disease G8 BROTHER FH: diverticulitis Hypertension 32 MOTHER, , Age:72 No known health problems G8 BROTHER (BRAIN INJURY FROM ELECTRICAL ACCIDENT) G8 SISTER V19 CHILD V19 CHILD V19 CHILD V19 CHILD No Family History of: Asthma Cerebrovascular disorder Congestive heart failure Diabetes insipidus Diabetes mellitus Parkinson's disease VTE VTE Risk Total Score: 0 VTE Risk Score VTE Risk: Score 0-1 = Low Risk (Aggressive mobilization; early ambulation; no VTE prophylaxis required) Score 2: Moderate Risk (Intermittent/Pneumatic Compression Device OR Lovenox/Heparin/Coumadin) Score 3-4: High Risk (Intermittent/Pneumatic Compression Device AND Lovenox/Heparin/Coumadin) Score > or =5: Highest Risk (Intermittent/Pneumatic Compression Device AND Lovenox/Heparin/Coumadin) Antico:Hep/LMWH/Coum/Xarelto: Yes Review of Systems Constitutional: No: Fever, Chills, Sweats, Weakness, Malaise Eyes: No: Pain, Vision change, Conjunctivae inflammation, Eyelid inflammation ENT: No: Nose pain, Nose discharge, Nose congestion, Mouth pain, Mouth swelling, Throat pain, Throat swelling, Other Respiratory: Cough, Shortness of breath; No: Sputum Cardiovascular: No: Chest Pain, Palpitations, Orthopnea, Paroxysmal Noc. Dyspnea, Edema Gastrointestinal: No: Nausea, Vomiting, Abdominal Pain Genitourinary: No Dysuria, No Frequency, No Incontinence, No Hematuria, No Retention Musculoskeletal: other; No: neck pain, shoulder pain, arm pain, back pain, hand pain, leg pain, foot pain Neurological: No: Weakness, Numbness Allergies: Coded Allergies: No Known Drug Allergies (Verified Allergy, Unknown, 06/03/20) Scheduled Dulaglutide (Trulicity), 0.75 MG SQ Q7D, (Reported) Gabapentin (Neurontin), 600 MG PO BID, (Reported) Olmesartan/Hydrochlorothiazide (Benicar Hct 20-12.5 Mg Tablet), 1 TAB PO DAILY, (Reported) Objective Vitals and I/O Vital Sign - Last 24 Hours 06/14/20 06/14/20 06/14/20 06/14/20 12:47 16:54 19:55 20:20 Temp 97.6 97.8 97.4 Pulse 80 71 76 Resp 19 19 18 18 B/P (MAP) 94/47 (63) 98/49 (65) 101/46 (64) Pulse Ox 94 90 92 92 O2 Delivery Nasal Canula O2 Flow Rate 5.00 06/14/20 06/15/20 06/15/20 06/15/20 20:21 00:21 04:21 08:11 Temp 97.8 97.6 Pulse 76 64 62 Resp 18 18 18 B/P (MAP) 104/50 (68) 106/52 (70) 95/44 Pulse Ox 92 93 92 O2 Delivery Nasal Cannula Nasal Canula Nasal Canula O2 Flow Rate 5.00 5.00 5.00 FiO2 40 06/15/20 06/15/20 06/15/20 08:11 08:23 09:03 Temp 98.0 Pulse 91 Resp 20 B/P (MAP) 95/44 95/44 (61) Pulse Ox 92 O2 Delivery Nasal Cannula O2 Flow Rate 5.00 Intake and Output 06/15/20 07:00 Intake Total 440 ml Balance 440 ml General: Alert, Oriented X3, Cooperative, mild distress HEENT: Atraumatic, Mucous membr. moist/pink Neck: Supple Lungs: Clear to auscultation, Normal air movement Heart: Regular rate, No murmurs, Gallops, Rubs Abdomen: Normal bowel sounds, Soft, No tenderness Skin: No rashes, No significant lesion Neuro: Normal speech, Strength at 5/5 X4 ext, Normal tone, Cranial nerves 3-12 NL Psych/Mental Status: Mental status NL, Mood NL All Results(Lab/Rad) Laboratory Tests Test 06/07/20 15:00 06/07/20 19:50 06/08/20 04:35 06/08/20 05:47 Bedside Glucose 173 260 163 White Blood Count 16.3 10^3/uL Red Blood Count 4.42 10^6/uL Hemoglobin 13.2 g/dL Hematocrit 38.3 % Mean Corpuscular Volume 86.7 fL Mean Corpuscular Hemoglobin 29.9 pg Mean Corpuscular Hemoglobin Concent 34.5 g/dL Red Cell Distribution Width 12.7 % Platelet Count 402 10^3/uL Mean Platelet Volume 9.8 fL Neutrophils (%) (Auto) 87.2 % Lymphocytes (%) (Auto) 3.7 % Monocytes (%) (Auto) 4.7 % Neutrophils # (Auto) 14.2 10^3/uL Lymphocytes # (Auto) 0.60 10^3/uL1 Monocytes # (Auto) 0.8 10^3/uL Absolute Immature Granulocyte (auto 0.70 10^3 u/L Absolute Eosinophils (auto) 0.0 10^3/uL Immature Granulocytes % 4.30 % Eosinophils % 0.0 % Basophils % 0.1 % Basophils # 0.0 10^3/uL Sodium Level 141 mmol/L Potassium Level 3.7 mmol/L Chloride Level 104.0 mmol/L Carbon Dioxide Level 28.4 mmol/L Anion Gap 12.3 Blood Urea Nitrogen 42 mg/dL Creatinine 0.98 mg/dL Estimated GFR () 70.3 Est GFR (CKD-EPI)(Non-Afr Martiniquais) 58.1 BUN/Creatinine Ratio 42.0 Glucose Level 192 mg/dL Calcium Level 9.1 mg/dL Total Bilirubin 0.4 mg/dL Aspartate Amino Transf (AST/SGOT) 37 U/L Alanine Aminotransferase (ALT/SGPT) 78 U/L Alkaline Phosphatase 55 U/L Total Protein 6.4 g/dL Albumin 2.6 g/dL Globulin 3.8 Albumin/Globulin Ratio 0.684 Test 06/08/20 07:03 06/08/20 08:05 Differential Total Cells Counted 100 #CELLS Segmented Neutrophils 88 % Band Neutrophils 1 % Lymphocytes 3 % Monocytes 7 % Metamyelocytes 1 % Platelet Estimate INCREASED Platelet Morphology NORMAL Blood Morphology Comment NORMAL MORPHOLOGY Bedside Glucose 175 Current Medications Medications (Trade) Dose Ordered Sig/Stas Route PRN Reason Start Time Stop Time Status Last Admin Dose Admin Ceftriaxone Sodium 1000 mg/ Sodium Chloride 100 ml @ 100 mls/hr STAT STAT IV 06/05/20 12:28 06/05/20 15:44 DC 06/05/20 12:56 Lorazepam (Ativan) 1 mg STAT STAT IV 06/05/20 12:33 06/05/20 15:44 DC 06/05/20 12:56 Ceftriaxone Sodium (Rocephin) 1,000 mg STK-MED ONCE .ROUTE 06/05/20 12:32 06/05/20 12:35 DC Enoxaparin Sodium (Lovenox) 90 mg STAT STAT SQ 06/05/20 13:39 06/05/20 13:41 DC Enoxaparin Sodium (Lovenox) 90 mg STAT STAT SQ 06/05/20 13:42 06/05/20 13:44 DC 06/05/20 14:15 Enoxaparin Sodium (Lovenox) 100 mg STK-MED ONCE SQ 06/05/20 13:42 06/05/20 13:44 DC Ceftriaxone Sodium 1000 mg/ Sodium Chloride 100 ml @ 100 mls/hr Q24HRS IV 06/06/20 13:00 07/06/20 12:59 06/07/20 12:56 Acetaminophen (Tylenol) 1,000 mg Q6H PRN PO PAIN 1 - 3 06/05/20 15:30 07/05/20 15:29 06/07/20 20:32 Zolpidem Tartrate (Ambien) 5 mg HS PRN PO INSOMNIA 06/05/20 15:30 1/2/21 15:29 06/07/20 20:32 Morphine Sulfate (Morphine Sulfate) 2 mg Q4H PRN IV PAIN 7 - 10 06/05/20 15:30 07/05/20 15:29 Insulin Human Lispro (Humalog) 0-140 0 Units 141-200... ACHS SQ 06/05/20 17:30 07/05/20 17:29 06/08/20 11:30 Dextrose (Dextrose 50%-Water Syringe) 25 ml STAT PRN IV HYPOGLYCEMIA 06/05/20 15:30 07/05/20 15:29 Guaifenesin (Mucinex) 1,200 mg BID PO 06/05/20 21:00 07/05/20 20:59 06/08/20 09:50 Zinc Sulfate (Zinc Sulfate) 220 mg STAT STAT PO 06/05/20 15:37 06/05/20 15:47 DC 06/05/20 17:31 Azithromycin 500 mg/Sodium Chloride 250 ml @ 175 mls/hr Q24HRS IV 06/05/20 16:00 06/05/20 17:50 DC Furosemide (Lasix) 20 mg STAT IV 06/05/20 16:00 07/05/20 15:59 06/05/20 22:09 Ascorbic Acid (Vitamin C) 500 mg BID PO 06/05/20 21:00 07/05/20 20:59 06/08/20 09:49 Insulin Glargine (Lantus) 10 unit HS SQ 06/05/20 21:00 07/05/20 20:59 06/07/20 20:08 Remdesivir 200 mg/ Sodium Chloride 140 ml @ 120.69 mls/ hr OT STAT IV 06/05/20 15:37 06/05/20 16:46 DC 06/05/20 17:31 Famotidine (Pepcid) 20 mg BID PO 06/05/20 21:00 07/05/20 20:59 06/08/20 09:49 Enoxaparin Sodium (Lovenox) 80 mg BID SQ 06/05/20 21:00 06/07/20 12:14 DC 06/07/20 09:29 Gabapentin (Neurontin) 600 mg BID PO 06/05/20 21:00 07/05/20 20:59 06/08/20 09:50 Losartan Potassium (Cozaar) 100 mg DAILY PO 06/06/20 09:00 07/06/20 08:59 06/07/20 09:29 Hydrochlorothiazide (Hydrochlorothiazide) 12.5 mg DAILY PO 06/06/20 09:00 07/06/20 08:59 06/07/20 09:29 Zinc Sulfate (Zinc Sulfate) 220 mg STK-MED ONCE .ROUTE 06/05/20 17:08 06/05/20 17:11 DC Azithromycin 500 mg/Sodium Chloride 250 ml @ 175 mls/hr Q24HRS IV 06/05/20 20:00 07/05/20 19:59 06/07/20 20:30 Sodium Chloride 250 ml @ ud STK-MED ONCE IV 06/05/20 20:50 06/05/20 20:52 DC Sodium Chloride 500 ml @ ud STK-MED ONCE IV 06/06/20 00:24 06/06/20 00:26 DC Remdesivir 100 mg/ Sodium Chloride 120 ml @ 111.111 mls/hr Q24HRS IV 06/06/20 15:00 06/09/20 16:05 06/07/20 15:11 Enoxaparin Sodium (Lovenox) 40 mg Q24HRS SQ 06/08/20 12:30 07/08/20 12:29 06/08/20 12:26 Course Sepsis Screening Results: Posi: POSITIVE Sepsis Qualifier/Stage: SEPSIS RISK Duration or Total Time Spent w: 15 min Vitals & review Data Vital Sign - Last 24 Hours 06/07/20 06/07/20 06/07/20 06/07/20 16:58 19:19 21:33 23:40 Temp 98.1 98.0 98.1 Pulse 53 62 76 Resp 19 18 18 B/P (MAP) 137/65 (89) 115/57 (76) 132/61 (84) Pulse Ox 93 95 97 O2 Delivery Non-Rebreather O2 Flow Rate 15.00 06/08/20 06/08/20 06/08/20 06/08/20 04:08 08:38 09:00 09:00 Temp 98.2 97.1 Pulse 82 66 Resp 18 19 B/P (MAP) 136/67 (90) 114/52 (72) 114/52 114/52 Pulse Ox 96 90 O2 Delivery Comfort Flow O2 Flow Rate 15.00 06/08/20 12:08 Temp 98.0 Pulse 67 Resp 20 B/P (MAP) 134/62 (86) Pulse Ox 90 Laboratory Tests Test 06/06/20 16:19 06/06/20 20:18 06/07/20 04:57 06/07/20 07:45 Bedside Glucose 203 216 169 165 Test 06/07/20 08:25 06/07/20 09:12 06/07/20 11:06 06/07/20 15:00 White Blood Count 13.4 10^3/uL Red Blood Count 4.77 10^6/uL Hemoglobin 14.0 g/dL Hematocrit 42.5 % Mean Corpuscular Volume 89.1 fL Mean Corpuscular Hemoglobin 29.4 pg Mean Corpuscular Hemoglobin Concent 32.9 g/dL Red Cell Distribution Width 13.0 % Platelet Count 348 10^3/uL Mean Platelet Volume 9.8 fL Neutrophils (%) (Auto) 83.5 % Lymphocytes (%) (Auto) 6.3 % Monocytes (%) (Auto) 5.3 % Neutrophils # (Auto) 11.2 10^3/uL Lymphocytes # (Auto) 0.85 10^3/uL1 Monocytes # (Auto) 0.7 10^3/uL Absolute Immature Granulocyte (auto 0.64 10^3 u/L Absolute Eosinophils (auto) 0.0 10^3/uL Immature Granulocytes % 4.80 % Eosinophils % 0.0 % Basophils % 0.1 % Basophils # 0.0 10^3/uL Sodium Level 141 mmol/L Potassium Level 3.5 mmol/L Chloride Level 103.0 mmol/L Carbon Dioxide Level 29.5 mmol/L Anion Gap 12.0 Blood Urea Nitrogen 45 mg/dL Creatinine 0.96 mg/dL Estimated GFR () 72.0 Est GFR (CKD-EPI)(Non-Afr Martiniquais) 59.5 BUN/Creatinine Ratio 46.0 Glucose Level 194 mg/dL Calcium Level 9.2 mg/dL Total Bilirubin 0.4 mg/dL Aspartate Amino Transf (AST/SGOT) 84 U/L Alanine Aminotransferase (ALT/SGPT) 96 U/L Alkaline Phosphatase 62 U/L Total Protein 6.9 g/dL Albumin 2.8 g/dL Globulin 4.1 Albumin/Globulin Ratio 0.682 Differential Total Cells Counted 100 #CELLS Segmented Neutrophils 81 % Band Neutrophils 2 % Lymphocytes 9 % Monocytes 5 % Metamyelocytes 1 % Myelocytes 1 % Toxic Granulation 1+ Platelet Estimate ADEQUATE Platelet Morphology NORMAL Blood Morphology Comment NORMAL MORPHOLOGY Bedside Glucose 178 173 Test 06/07/20 19:50 06/08/20 04:35 06/08/20 05:47 06/08/20 07:03 Bedside Glucose 260 163 White Blood Count 16.3 10^3/uL Red Blood Count 4.42 10^6/uL Hemoglobin 13.2 g/dL Hematocrit 38.3 % Mean Corpuscular Volume 86.7 fL Mean Corpuscular Hemoglobin 29.9 pg Mean Corpuscular Hemoglobin Concent 34.5 g/dL Red Cell Distribution Width 12.7 % Platelet Count 402 10^3/uL Mean Platelet Volume 9.8 fL Neutrophils (%) (Auto) 87.2 % Lymphocytes (%) (Auto) 3.7 % Monocytes (%) (Auto) 4.7 % Neutrophils # (Auto) 14.2 10^3/uL Lymphocytes # (Auto) 0.60 10^3/uL1 Monocytes # (Auto) 0.8 10^3/uL Absolute Immature Granulocyte (auto 0.70 10^3 u/L Absolute Eosinophils (auto) 0.0 10^3/uL Immature Granulocytes % 4.30 % Eosinophils % 0.0 % Basophils % 0.1 % Basophils # 0.0 10^3/uL Sodium Level 141 mmol/L Potassium Level 3.7 mmol/L Chloride Level 104.0 mmol/L Carbon Dioxide Level 28.4 mmol/L Anion Gap 12.3 Blood Urea Nitrogen 42 mg/dL Creatinine 0.98 mg/dL Estimated GFR () 70.3 Est GFR (CKD-EPI)(Non-Afr Martiniquais) 58.1 BUN/Creatinine Ratio 42.0 Glucose Level 192 mg/dL Calcium Level 9.1 mg/dL Total Bilirubin 0.4 mg/dL Aspartate Amino Transf (AST/SGOT) 37 U/L Alanine Aminotransferase (ALT/SGPT) 78 U/L Alkaline Phosphatase 55 U/L Total Protein 6.4 g/dL Albumin 2.6 g/dL Globulin 3.8 Albumin/Globulin Ratio 0.684 Differential Total Cells Counted 100 #CELLS Segmented Neutrophils 88 % Band Neutrophils 1 % Lymphocytes 3 % Monocytes 7 % Metamyelocytes 1 % Platelet Estimate INCREASED Platelet Morphology NORMAL Blood Morphology Comment NORMAL MORPHOLOGY Test 06/08/20 08:05 Bedside Glucose 175 Current Medications Medications (Trade) Dose Ordered Sig/Stas PRN Reason Start Time Stop Time Status Last Admin Acetaminophen (Tylenol) 1,000 mg Q6H PRN PAIN 1 - 3 06/05/20 15:30 07/05/20 15:29 06/07/20 20:32 Ascorbic Acid (Vitamin C) 500 mg BID 06/05/20 21:00 07/05/20 20:59 06/08/20 09:49 Azithromycin 500 mg/Sodium Chloride 250 ml @ 175 mls/hr Q24HRS 06/05/20 20:00 07/05/20 19:59 06/07/20 20:30 Ceftriaxone Sodium 1000 mg/ Sodium Chloride 100 ml @ 100 mls/hr Q24HRS 06/06/20 13:00 07/06/20 12:59 06/07/20 12:56 Dextrose (Dextrose 50%-Water Syringe) 25 ml STAT PRN HYPOGLYCEMIA 06/05/20 15:30 07/05/20 15:29 Enoxaparin Sodium (Lovenox) 40 mg Q24HRS 06/08/20 12:30 07/08/20 12:29 06/08/20 12:26 Famotidine (Pepcid) 20 mg BID 06/05/20 21:00 07/05/20 20:59 06/08/20 09:49 Furosemide (Lasix) 20 mg STAT 06/05/20 16:00 07/05/20 15:59 06/05/20 22:09 Gabapentin (Neurontin) 600 mg BID 06/05/20 21:00 07/05/20 20:59 06/08/20 09:50 Guaifenesin (Mucinex) 1,200 mg BID 06/05/20 21:00 07/05/20 20:59 06/08/20 09:50 Hydrochlorothiazide (Hydrochlorothiazide) 12.5 mg DAILY 06/06/20 09:00 07/06/20 08:59 06/07/20 09:29 Insulin Glargine (Lantus) 10 unit HS 06/05/20 21:00 07/05/20 20:59 06/07/20 20:08 Insulin Human Lispro (Humalog) 0-140 0 Units 141-200... ACHS 06/05/20 17:30 07/05/20 17:29 06/08/20 11:30 Losartan Potassium (Cozaar) 100 mg DAILY 06/06/20 09:00 07/06/20 08:59 06/07/20 09:29 Morphine Sulfate (Morphine Sulfate) 2 mg Q4H PRN PAIN 7 - 10 06/05/20 15:30 07/05/20 15:29 Remdesivir 100 mg/ Sodium Chloride 120 ml @ 111.111 mls/hr Q24HRS 06/06/20 15:00 06/09/20 16:05 06/07/20 15:11 Zolpidem Tartrate (Ambien) 5 mg HS PRN INSOMNIA 06/05/20 15:30 07/05/20 15:29 06/07/20 20:32 LEVEL 1 SEPSIS INFECTION CRITE: ABX Therapy, Cough/Shortness of Breath LEVEL 2-SIRS (LIST ALL THAT AP: [id number] Cardiovascular Evidence: Not Assessed or None Hematologic Evidence: None/Not assessed Hepatic Evidence: None/Not assessed Metabolic Evidence: None/Not assessed Neurological Evidence: None/Not assessed Respiratory Evidence: Need for O2 to keep>90%, O2 SAT<90room air Renal Evidence: None/Not assessed O2 Sat by Pulse Oximetry: 92 Oxygen Flow Rate: 5.00 Assessment/Plan Assessment/Plan Assessment/Plan 1. Pneumonia, Likely related to Covid 19 2.COVID-19 Infection 3. Essential (primary) hypertension 4. Diabetes mellitus. Appears to be out of control because of the steroid use. Blood sugar [id number] Plan 1. Pneumonia, Likely related to Covid 19 White count elevated at 18,000 could be from a stress as well as from Covid oral steroids Patient still requires oxygen 6 L via nasal cannula to keep sats above 90%. Chest x-ray shows multifocal infiltrates and ground-glass opacities scattered throughout both lungs. The findings are commonly reported imaging features of COVID-19 pneumonia. Patient white count is coming down from 18,000-16,000.White count elevation likely related to the steroid treatment. Patient saturation is 92% on 6 L nasal cannula. Patient is working on the incentive spirometry and increase activity. 06/14/2020Labs shows a sodium 134, potassium 3.7, BUN 18 creatinine 0.8 06/15/2020. Inflammatory markers shows a ferritin of 457 and a CRP normal at 173. Her white count is coming up to 17,000 perhaps related to steroids. She is getting progressively better with decrease of the shortness of breath. She still requires oxygen to keep saturation above 90%. Her blood sugars are between 140 9234. She will require adjustment of the insulin Plan Continue oxygen to keep saturation above 90% continue current management with Combination of remdesivir, azithromycin, ceftriaxone, vitamin C, dexamethasone, Lovenox 80 mg subcu every 24 hours Try to wean from oxygen.. Patient is still requires oxygen at 6 L to keep saturation above 90. Present saturation 92% 2.COVID-19 Infection Improving, continue current management with medication, O2 and IS. Plan Follow inflammatory markers. 3. Essential (primary) hypertension. She has been having low blood pressure readings over the last 2 days with blood pressure on the [id number]. Patient is currently on losartan . Plan I placed holding parameters hold if blood pressure is 160. Discontinue HCTZ 4. Diabetes mellitus. Appears to be out of control because of the steroid use. Blood sugar [id number]. Plan continue Regular Insulin sliding scale and Lantus 30 units daily. Patient is on a diabetic diet DVT prophylaxis Enoxaparin Pepcid for GI PPX CODE STATUS:Full code Dispo: Home DAVID HITCHCOCK MD Jun 15, 2020 09:26
[2020-06-15] MEDS: LOVENOX SQ SCH (12:00)
[2020-06-15 12:32] VITALS: BP 95/45
[2020-06-15] MEDS: ROCEPHIN 1,000 MG in NS 100ML 100 ML IV SCH (16:06)
[2020-06-15 16:52] VITALS: BP 110/54
[2020-06-15] MEDS: ZITHROMAX 500 MG in NS 250ML 250 ML IV SCH (20:00)
[2020-06-15 20:13] VITALS: BP 113/60
[2020-06-15] MEDS: LANTUS SQ SCH (20:34)
[2020-06-16 00:55] VITALS: BP 109/56
[2020-06-16 04:36] VITALS: BP 91/53
[2020-06-16 06:47] LABS: BASOPHIL % 0.1 % (0.0-0.2); EOSINOPHIL # 0.3 10^3/uL (0.0-0.2); EOSINOPHIL % 2.4 % (0.0-5.0); LYMPHOCYTES # 0.75 10^3/uL1 (1.0-4.8); LYMPHOCYTES % 5.3 % (24.0-44.0); MEAN CORP HGB 29.1 pg (26-34); MONOCYTES # 1.2 10^3/uL (0.3-0.8); MONOCYTES % 8.1 % (5.0-12.0); NEUTROPHIL # 11.9 10^3/uL (1.8-7.7); NEUTROPHILS % 83.3 % (41.0-85.0); PLATELET COUNT 314 10^3/uL (150-400); RED CELL DISTRIBUTION WIDTH 13.9 % (11.5-14.5)
[2020-06-16 07:13] LABS: CALCIUM 8.5 mg/dL (8.4-10.5); CARBON DIOXIDE 28.2 mmol/L (20.0-32)
[2020-06-16] MEDS: HUMALOG SQ SCH ×4 (07:30→22:13)
[2020-06-16] MEDS: COZAAR PO SCH (08:19)
[2020-06-16] MEDS: MUCINEX PO SCH ×2 (08:21→21:00)
[2020-06-16] MEDS: NEURONTIN PO SCH ×2 (08:21→21:00)
[2020-06-16] MEDS: PEPCID PO SCH ×2 (08:21→21:00)
[2020-06-16] MEDS: VITAMIN C PO SCH ×2 (08:21→21:00)
[2020-06-16 08:45] LABS: EOSINOPHIL 1 % (1-4); LYMPHOCYTE 4 % (25-36); MONOCYTE 5 % (3-9); SEGMENTED NEUTROPHILS 90 % (31-76)
[2020-06-16 08:48] VITALS: BP 98/39
--- NOTE | 2020-06-16 10:49 | PRM.PN ---
Subjective Subjective Date: Jun 16, 2020 Time: 10:44 Subjective 06/12/2020 Patient states that she is feeling better today we did discuss her 's condition who is in the ICU that he is still critical and at risk for acute deterioration at any time she wishes to continue cardiac arrhythmia medication should he have repeat episodes of SVT or V. fib however she does not want chest compressions or full CPR. We discussed that his creatinine is improving however his uremia persists. He is currently not stable on the ventilator or from a cardiac standpoint to transfer to [place] for dialysis but if we can improve his lungs he may be able to transport for dialysis if his creatinine does not continue to improve and he remains uremic. Patient complaint of cough and shortness of breath. Denies any diarrhea blood in the stool. Denies any leg swelling. She still need oxygen to keep saturation above 90%. Denies any fever. 06/13/2020 Denies any fever today. Appears with decrease of the shortness of breath. The cough is dry. She denies any abdominal pain or diarrhea. 06/14/2020. She still feels winded when she walked. She required oxygen continuously. Denies any shortness of breath or chest pain. Denies any diarrhea or fever. 06/15/2020. Patient blood pressure is in the lower side on the 190s. Holding parameters for medications were written. Patient referred improvement slowly of the shortness of breath. Denies chest pain or palpitations. 06/16/2020. Patient still requires oxygen to keep saturation above 90%. Denies any fever chills cough diarrhea. She is tolerating oral intake. Patient History: Alzheimer's disease 33 FATHER, , Age:73 Chronic obstructive pulmonary disease G8 BROTHER FH: diverticulitis Hypertension 32 MOTHER, , Age:72 No known health problems G8 BROTHER (BRAIN INJURY FROM ELECTRICAL ACCIDENT) G8 SISTER V19 CHILD V19 CHILD V19 CHILD V19 CHILD No Family History of: Asthma Cerebrovascular disorder Congestive heart failure Diabetes insipidus Diabetes mellitus Parkinson's disease VTE VTE Risk Total Score: 0 VTE Risk Score VTE Risk: Score 0-1 = Low Risk (Aggressive mobilization; early ambulation; no VTE prophylaxis required) Score 2: Moderate Risk (Intermittent/Pneumatic Compression Device OR Lovenox/Heparin/Coumadin) Score 3-4: High Risk (Intermittent/Pneumatic Compression Device AND Lovenox/Heparin/Coumadin) Score > or =5: Highest Risk (Intermittent/Pneumatic Compression Device AND Lovenox/Heparin/Coumadin) Antico:Hep/LMWH/Coum/Xarelto: Yes Review of Systems Constitutional: No: Fever, Chills, Sweats, Weakness, Malaise Eyes: No: Pain, Vision change, Conjunctivae inflammation, Eyelid inflammation ENT: No: Nose pain, Nose discharge, Nose congestion, Mouth pain, Mouth swelling, Throat pain, Throat swelling, Other Respiratory: Cough, Shortness of breath; No: Sputum Cardiovascular: No: Chest Pain, Palpitations, Orthopnea, Paroxysmal Noc. Dyspnea, Edema Gastrointestinal: No: Nausea, Vomiting, Abdominal Pain Genitourinary: No Dysuria, No Frequency, No Incontinence, No Hematuria, No Retention Musculoskeletal: other; No: neck pain, shoulder pain, arm pain, back pain, hand pain, leg pain, foot pain Neurological: No: Weakness, Numbness Allergies: Coded Allergies: No Known Drug Allergies (Verified Allergy, Unknown, 06/03/20) Scheduled Dulaglutide (Trulicity), 0.75 MG SQ Q7D, (Reported) Gabapentin (Neurontin), 600 MG PO BID, (Reported) Olmesartan/Hydrochlorothiazide (Benicar Hct 20-12.5 Mg Tablet), 1 TAB PO DAILY, (Reported) Objective Vitals and I/O Vital Sign - Last 24 Hours 06/15/20 06/15/20 06/15/20 06/15/20 12:32 16:52 20:13 20:31 Temp 97.9 97.7 97.6 Pulse 70 75 80 80 Resp 19 19 20 20 B/P (MAP) 95/45 (62) 110/54 (72) 113/60 (77) Pulse Ox 94 94 95 95 O2 Delivery Nasal Canula Nasal Cannula O2 Flow Rate 5.00 5.00 FiO2 40 06/16/20 06/16/20 06/16/20 06/16/20 00:55 01:21 04:36 08:19 Temp 97.5 97.9 Pulse 65 66 Resp 18 18 B/P (MAP) 109/56 (73) 91/53 (66) 91/53 Pulse Ox 94 O2 Delivery Nasal Canula Nasal Cannula Nasal Canula O2 Flow Rate 5.00 5.00 06/16/20 06/16/20 08:48 09:55 Temp 98.8 Pulse 66 Resp 18 B/P (MAP) 98/39 (58) Pulse Ox 97 O2 Delivery Nasal Cannula O2 Flow Rate 4.00 Intake and Output 06/16/20 07:00 Intake Total 340 ml Balance 340 ml General: Alert, Oriented X3, Cooperative, mild distress HEENT: Atraumatic, Mucous membr. moist/pink Neck: Supple Lungs: Clear to auscultation, Normal air movement Heart: Regular rate, No murmurs, Gallops, Rubs Abdomen: Normal bowel sounds, Soft, No tenderness Skin: No rashes, No significant lesion Neuro: Normal speech, Strength at 5/5 X4 ext, Normal tone, Cranial nerves 3-12 NL Psych/Mental Status: Mental status NL, Mood NL All Results(Lab/Rad) Laboratory Tests Test 06/07/20 15:00 06/07/20 19:50 06/08/20 04:35 06/08/20 05:47 Bedside Glucose 173 260 163 White Blood Count 16.3 10^3/uL Red Blood Count 4.42 10^6/uL Hemoglobin 13.2 g/dL Hematocrit 38.3 % Mean Corpuscular Volume 86.7 fL Mean Corpuscular Hemoglobin 29.9 pg Mean Corpuscular Hemoglobin Concent 34.5 g/dL Red Cell Distribution Width 12.7 % Platelet Count 402 10^3/uL Mean Platelet Volume 9.8 fL Neutrophils (%) (Auto) 87.2 % Lymphocytes (%) (Auto) 3.7 % Monocytes (%) (Auto) 4.7 % Neutrophils # (Auto) 14.2 10^3/uL Lymphocytes # (Auto) 0.60 10^3/uL1 Monocytes # (Auto) 0.8 10^3/uL Absolute Immature Granulocyte (auto 0.70 10^3 u/L Absolute Eosinophils (auto) 0.0 10^3/uL Immature Granulocytes % 4.30 % Eosinophils % 0.0 % Basophils % 0.1 % Basophils # 0.0 10^3/uL Sodium Level 141 mmol/L Potassium Level 3.7 mmol/L Chloride Level 104.0 mmol/L Carbon Dioxide Level 28.4 mmol/L Anion Gap 12.3 Blood Urea Nitrogen 42 mg/dL Creatinine 0.98 mg/dL Estimated GFR () 70.3 Est GFR (CKD-EPI)(Non-Afr [place]adian) 58.1 BUN/Creatinine Ratio 42.0 Glucose Level 192 mg/dL Calcium Level 9.1 mg/dL Total Bilirubin 0.4 mg/dL Aspartate Amino Transf (AST/SGOT) 37 U/L Alanine Aminotransferase (ALT/SGPT) 78 U/L Alkaline Phosphatase 55 U/L Total Protein 6.4 g/dL Albumin 2.6 g/dL Globulin 3.8 Albumin/Globulin Ratio 0.684 Test 06/08/20 07:03 06/08/20 08:05 Differential Total Cells Counted 100 #CELLS Segmented Neutrophils 88 % Band Neutrophils 1 % Lymphocytes 3 % Monocytes 7 % Metamyelocytes 1 % Platelet Estimate INCREASED Platelet Morphology NORMAL Blood Morphology Comment NORMAL MORPHOLOGY Bedside Glucose 175 Current Medications Medications (Trade) Dose Ordered Sig/Stas Route PRN Reason Start Time Stop Time Status Last Admin Dose Admin Ceftriaxone Sodium 1000 mg/ Sodium Chloride 100 ml @ 100 mls/hr STAT STAT IV 06/05/20 12:28 06/05/20 15:44 DC 06/05/20 12:56 Lorazepam (Ativan) 1 mg STAT STAT IV 06/05/20 12:33 06/05/20 15:44 DC 06/05/20 12:56 Ceftriaxone Sodium (Rocephin) 1,000 mg STK-MED ONCE .ROUTE 06/05/20 12:32 06/05/20 12:35 DC Enoxaparin Sodium (Lovenox) 90 mg STAT STAT SQ 06/05/20 13:39 06/05/20 13:41 DC Enoxaparin Sodium (Lovenox) 90 mg STAT STAT SQ 06/05/20 13:42 06/05/20 13:44 DC 06/05/20 14:15 Enoxaparin Sodium (Lovenox) 100 mg STK-MED ONCE SQ 06/05/20 13:42 06/05/20 13:44 DC Ceftriaxone Sodium 1000 mg/ Sodium Chloride 100 ml @ 100 mls/hr Q24HRS IV 06/06/20 13:00 07/06/20 12:59 06/07/20 12:56 Acetaminophen (Tylenol) 1,000 mg Q6H PRN PO PAIN 1 - 3 06/05/20 15:30 07/05/20 15:29 06/07/20 20:32 Zolpidem Tartrate (Ambien) 5 mg HS PRN PO INSOMNIA 06/05/20 15:30 07/05/20 15:29 06/07/20 20:32 Morphine Sulfate (Morphine Sulfate) 2 mg Q4H PRN IV PAIN 7 - 10 06/05/20 15:30 07/05/20 15:29 Insulin Human Lispro (Humalog) 0-140 0 Units 141-200... ACHS SQ 06/05/20 17:30 07/05/20 17:29 06/08/20 11:30 Dextrose (Dextrose 50%-Water Syringe) 25 ml STAT PRN IV HYPOGLYCEMIA 06/05/20 15:30 07/05/20 15:29 Guaifenesin (Mucinex) 1,200 mg BID PO 06/05/20 21:00 07/05/20 20:59 06/08/20 09:50 Zinc Sulfate (Zinc Sulfate) 220 mg STAT STAT PO 06/05/20 15:37 06/05/20 15:47 DC 06/05/20 17:31 Azithromycin 500 mg/Sodium Chloride 250 ml @ 175 mls/hr Q24HRS IV 06/05/20 16:00 06/05/20 17:50 DC Furosemide (Lasix) 20 mg STAT IV 06/05/20 16:00 07/05/20 15:59 06/05/20 22:09 Ascorbic Acid (Vitamin C) 500 mg BID PO 06/05/20 21:00 07/05/20 20:59 06/08/20 09:49 Insulin Glargine (Lantus) 10 unit HS SQ 06/05/20 21:00 07/05/20 20:59 06/07/20 20:08 Remdesivir 200 mg/ Sodium Chloride 140 ml @ 120.69 mls/ hr OT STAT IV 06/05/20 15:37 06/05/20 16:46 DC 06/05/20 17:31 Famotidine (Pepcid) 20 mg BID PO 06/05/20 21:00 07/05/20 20:59 06/08/20 09:49 Enoxaparin Sodium (Lovenox) 80 mg BID SQ 06/05/20 21:00 06/07/20 12:14 DC 06/07/20 09:29 Gabapentin (Neurontin) 600 mg BID PO 06/05/20 21:00 07/05/20 20:59 06/08/20 09:50 Losartan Potassium (Cozaar) 100 mg DAILY PO 06/06/20 09:00 07/06/20 08:59 06/07/20 09:29 Hydrochlorothiazide (Hydrochlorothiazide) 12.5 mg DAILY PO 06/06/20 09:00 07/06/20 08:59 06/07/20 09:29 Zinc Sulfate (Zinc Sulfate) 220 mg STK-MED ONCE .ROUTE 06/05/20 17:08 06/05/20 17:11 DC Azithromycin 500 mg/Sodium Chloride 250 ml @ 175 mls/hr Q24HRS IV 06/05/20 20:00 07/05/20 19:59 06/07/20 20:30 Sodium Chloride 250 ml @ ud STK-MED ONCE IV 06/05/20 20:50 06/05/20 20:52 DC Sodium Chloride 500 ml @ ud STK-MED ONCE IV 06/06/20 00:24 06/06/20 00:26 DC Remdesivir 100 mg/ Sodium Chloride 120 ml @ 111.111 mls/hr Q24HRS IV 06/06/20 15:00 06/09/20 16:05 06/07/20 15:11 Enoxaparin Sodium (Lovenox) 40 mg Q24HRS SQ 06/08/20 12:30 07/08/20 12:29 06/08/20 12:26 Course Sepsis Screening Results: Posi: POSITIVE Sepsis Qualifier/Stage: SEPSIS RISK Duration or Total Time Spent w: 15 min Vitals & review Data Vital Sign - Last 24 Hours 06/07/20 06/07/20 06/07/20 06/07/20 16:58 19:19 21:33 23:40 Temp 98.1 98.0 98.1 Pulse 53 62 76 Resp 19 18 18 B/P (MAP) 137/65 (89) 115/57 (76) 132/61 (84) Pulse Ox 93 95 97 O2 Delivery Non-Rebreather O2 Flow Rate 15.00 06/08/20 06/08/20 06/08/20 06/08/20 04:08 08:38 09:00 09:00 Temp 98.2 97.1 Pulse 82 66 Resp 18 19 B/P (MAP) 136/67 (90) 114/52 (72) 114/52 114/52 Pulse Ox 96 90 O2 Delivery Comfort Flow O2 Flow Rate 15.00 06/08/20 12:08 Temp 98.0 Pulse 67 Resp 20 B/P (MAP) 134/62 (86) Pulse Ox 90 Laboratory Tests Test 06/06/20 16:19 06/06/20 20:18 06/07/20 04:57 06/07/20 07:45 Bedside Glucose 203 216 169 165 Test 06/07/20 08:25 06/07/20 09:12 06/07/20 11:06 06/07/20 15:00 White Blood Count 13.4 10^3/uL Red Blood Count 4.77 10^6/uL Hemoglobin 14.0 g/dL Hematocrit 42.5 % Mean Corpuscular Volume 89.1 fL Mean Corpuscular Hemoglobin 29.4 pg Mean Corpuscular Hemoglobin Concent 32.9 g/dL Red Cell Distribution Width 13.0 % Platelet Count 348 10^3/uL Mean Platelet Volume 9.8 fL Neutrophils (%) (Auto) 83.5 % Lymphocytes (%) (Auto) 6.3 % Monocytes (%) (Auto) 5.3 % Neutrophils # (Auto) 11.2 10^3/uL Lymphocytes # (Auto) 0.85 10^3/uL1 Monocytes # (Auto) 0.7 10^3/uL Absolute Immature Granulocyte (auto 0.64 10^3 u/L Absolute Eosinophils (auto) 0.0 10^3/uL Immature Granulocytes % 4.80 % Eosinophils % 0.0 % Basophils % 0.1 % Basophils # 0.0 10^3/uL Sodium Level 141 mmol/L Potassium Level 3.5 mmol/L Chloride Level 103.0 mmol/L Carbon Dioxide Level 29.5 mmol/L Anion Gap 12.0 Blood Urea Nitrogen 45 mg/dL Creatinine 0.96 mg/dL Estimated GFR () 72.0 Est GFR (CKD-EPI)(Non-Afr [place]) 59.5 BUN/Creatinine Ratio 46.0 Glucose Level 194 mg/dL Calcium Level 9.2 mg/dL Total Bilirubin 0.4 mg/dL Aspartate Amino Transf (AST/SGOT) 84 U/L Alanine Aminotransferase (ALT/SGPT) 96 U/L Alkaline Phosphatase 62 U/L Total Protein 6.9 g/dL Albumin 2.8 g/dL Globulin 4.1 Albumin/Globulin Ratio 0.682 Differential Total Cells Counted 100 #CELLS Segmented Neutrophils 81 % Band Neutrophils 2 % Lymphocytes 9 % Monocytes 5 % Metamyelocytes 1 % Myelocytes 1 % Toxic Granulation 1+ Platelet Estimate ADEQUATE Platelet Morphology NORMAL Blood Morphology Comment NORMAL MORPHOLOGY Bedside Glucose 178 173 Test 06/07/20 19:50 06/08/20 04:35 06/08/20 05:47 06/08/20 07:03 Bedside Glucose 260 163 White Blood Count 16.3 10^3/uL Red Blood Count 4.42 10^6/uL Hemoglobin 13.2 g/dL Hematocrit 38.3 % Mean Corpuscular Volume 86.7 fL Mean Corpuscular Hemoglobin 29.9 pg Mean Corpuscular Hemoglobin Concent 34.5 g/dL Red Cell Distribution Width 12.7 % Platelet Count 402 10^3/uL Mean Platelet Volume 9.8 fL Neutrophils (%) (Auto) 87.2 % Lymphocytes (%) (Auto) 3.7 % Monocytes (%) (Auto) 4.7 % Neutrophils # (Auto) 14.2 10^3/uL Lymphocytes # (Auto) 0.60 10^3/uL1 Monocytes # (Auto) 0.8 10^3/uL Absolute Immature Granulocyte (auto 0.70 10^3 u/L Absolute Eosinophils (auto) 0.0 10^3/uL Immature Granulocytes % 4.30 % Eosinophils % 0.0 % Basophils % 0.1 % Basophils # 0.0 10^3/uL Sodium Level 141 mmol/L Potassium Level 3.7 mmol/L Chloride Level 104.0 mmol/L Carbon Dioxide Level 28.4 mmol/L Anion Gap 12.3 Blood Urea Nitrogen 42 mg/dL Creatinine 0.98 mg/dL Estimated GFR () 70.3 Est GFR (CKD-EPI)(Non-Afr [place]) 58.1 BUN/Creatinine Ratio 42.0 Glucose Level 192 mg/dL Calcium Level 9.1 mg/dL Total Bilirubin 0.4 mg/dL Aspartate Amino Transf (AST/SGOT) 37 U/L Alanine Aminotransferase (ALT/SGPT) 78 U/L Alkaline Phosphatase 55 U/L Total Protein 6.4 g/dL Albumin 2.6 g/dL Globulin 3.8 Albumin/Globulin Ratio 0.684 Differential Total Cells Counted 100 #CELLS Segmented Neutrophils 88 % Band Neutrophils 1 % Lymphocytes 3 % Monocytes 7 % Metamyelocytes 1 % Platelet Estimate INCREASED Platelet Morphology NORMAL Blood Morphology Comment NORMAL MORPHOLOGY Test 06/08/20 08:05 Bedside Glucose 175 Current Medications Medications (Trade) Dose Ordered Sig/Stas PRN Reason Start Time Stop Time Status Last Admin Acetaminophen (Tylenol) 1,000 mg Q6H PRN PAIN 1 - 3 06/05/20 15:30 07/05/20 15:29 06/07/20 20:32 Ascorbic Acid (Vitamin C) 500 mg BID 06/05/20 21:00 07/05/20 20:59 06/08/20 09:49 Azithromycin 500 mg/Sodium Chloride 250 ml @ 175 mls/hr Q24HRS 06/05/20 20:00 07/05/20 19:59 06/07/20 20:30 Ceftriaxone Sodium 1000 mg/ Sodium Chloride 100 ml @ 100 mls/hr Q24HRS 06/06/20 13:00 07/06/20 12:59 06/07/20 12:56 Dextrose (Dextrose 50%-Water Syringe) 25 ml STAT PRN HYPOGLYCEMIA 06/05/20 15:30 07/05/20 15:29 Enoxaparin Sodium (Lovenox) 40 mg Q24HRS 06/08/20 12:30 07/08/20 12:29 06/08/20 12:26 Famotidine (Pepcid) 20 mg BID 06/05/20 21:00 07/05/20 20:59 06/08/20 09:49 Furosemide (Lasix) 20 mg STAT 06/05/20 16:00 07/05/20 15:59 06/05/20 22:09 Gabapentin (Neurontin) 600 mg BID 06/05/20 21:00 07/05/20 20:59 06/08/20 09:50 Guaifenesin (Mucinex) 1,200 mg BID 06/05/20 21:00 07/05/20 20:59 06/08/20 09:50 Hydrochlorothiazide (Hydrochlorothiazide) 12.5 mg DAILY 06/06/20 09:00 07/06/20 08:59 06/07/20 09:29 Insulin Glargine (Lantus) 10 unit HS 06/05/20 21:00 07/05/20 20:59 06/07/20 20:08 Insulin Human Lispro (Humalog) 0-140 0 Units 141-200... ACHS 06/05/20 17:30 07/05/20 17:29 06/08/20 11:30 Losartan Potassium (Cozaar) 100 mg DAILY 06/06/20 09:00 07/06/20 08:59 06/07/20 09:29 Morphine Sulfate (Morphine Sulfate) 2 mg Q4H PRN PAIN 7 - 10 06/05/20 15:30 07/05/20 15:29 Remdesivir 100 mg/ Sodium Chloride 120 ml @ 111.111 mls/hr Q24HRS 06/06/20 15:00 06/09/20 16:05 06/07/20 15:11 Zolpidem Tartrate (Ambien) 5 mg HS PRN INSOMNIA 06/05/20 15:30 07/05/20 15:29 06/07/20 20:32 LEVEL 1 SEPSIS INFECTION CRITE: ABX Therapy, Cough/Shortness of Breath LEVEL 2-SIRS (LIST ALL THAT AP: [id number] Cardiovascular Evidence: Not Assessed or None Hematologic Evidence: None/Not assessed Hepatic Evidence: None/Not assessed Metabolic Evidence: None/Not assessed Neurological Evidence: None/Not assessed Respiratory Evidence: Need for O2 to keep>90%, O2 SAT<90room air Renal Evidence: None/Not assessed O2 Sat by Pulse Oximetry: 97 Oxygen Flow Rate: 4.00 Assessment/Plan Assessment/Plan Assessment/Plan 60-year-old female with Covid pneumonia. Treated with antibiotics and steroid remdesivir. She has risk factors including hypertension diabetes mellitus. Patient is progressing slowly and is getting better. She still requires oxygen 3 4 L nasal cannula to keep saturation above 90%. Patient is Near completion of 10 days of COVID-19 treatment. 1. Pneumonia, Likely related to Covid 19 2.COVID-19 Infection 3. Essential (primary) hypertension. She has been having low blood pressure readings over the last 2 days with blood pressure on the [id number]. 4. Diabetes mellitus. Appears to be out of control because of the steroid use. Blood sugar [id number]. Plan 1. Pneumonia, Likely related to Covid 19 White count elevated at 18,000 could be from a stress as well as from Covid oral steroids Patient still requires oxygen 6 L via nasal cannula to keep sats above 90%. Chest x-ray shows multifocal infiltrates and ground-glass opacities scattered throughout both lungs. The findings are commonly reported imaging features of COVID-19 pneumonia. Patient white count is coming down from 18,000-16,000.White count elevation likely related to the steroid treatment. Patient saturation is 92% on 6 L nasal cannula. Patient is working on the incentive spirometry and increase activity. 06/14/2020Labs shows a sodium 134, potassium 3.7, BUN 18 creatinine 0.8 06/15/2020. Inflammatory markers shows a ferritin of 457 and a CRP normal at 173. Her white count is coming up to 17,000 perhaps related to steroids. She is getting progressively better with decrease of the shortness of breath. She still requires oxygen to keep saturation above 90%. Her blood sugars are between 140 9234. She will require adjustment of the insulin 06/16/2020. Patient has some improvement of the renal function to near normal and platelet white count is also improving from 17,000-14,000. Her ferritin is 497 and CRP is elevated at 717. Blood sugars are now around 115. Patient is still require oxygen to keep saturations above 90% Plan Continue oxygen to keep saturation above 90% continue current management with Combination of remdesivir, azithromycin, ceftriaxone, vitamin C, dexamethasone, Lovenox 80 mg subcu every 24 hours Try to wean from oxygen.. Patient is still requires oxygen at 6 L to keep saturation above 90. Present saturation 92% 2.COVID-19 Infection Improving, continue current management with medication, O2 and IS. Plan Follow inflammatory markers. 3. Essential (primary) hypertension. She has been having low blood pressure readings over the last 2 days with blood pressure on the [id number]. Patient is currently on losartan . Plan I placed holding parameters hold if blood pressure is 160. Discontinue HCTZ 4. Diabetes mellitus. Appears to be out of control because of the steroid use. Blood sugar [id number]. Plan continue Regular Insulin sliding scale and Lantus 30 units daily. Patient is on a diabetic diet DVT prophylaxis Enoxaparin Pepcid for GI PPX CODE STATUS:Full code Dispo: Home DAVID HITCHCOCK MD Jun 16, 2020 10:49
[2020-06-16] MEDS: LOVENOX SQ SCH (12:00)
[2020-06-16 12:19] VITALS: BP 98/44
[2020-06-16 16:51] VITALS: BP 107/44
[2020-06-16] MEDS: ROCEPHIN 1,000 MG in NS 100ML 100 ML IV SCH (17:30)
[2020-06-16] MEDS ORDERED: NS 250ML 250 ML IV ONE (19:51)
[2020-06-16] MEDS: ZITHROMAX 500 MG in NS 250ML 250 ML IV SCH (20:00)
[2020-06-16] MEDS: LANTUS SQ SCH (22:15)
[2020-06-16 23:58] VITALS: BP 98/42
[2020-06-17 04:53] VITALS: BP 125/86
[2020-06-17 06:12] LABS: CALCIUM 8.7 mg/dL (8.4-10.5); CARBON DIOXIDE 30.5 mmol/L (20.0-32)
[2020-06-17] MEDS: HUMALOG SQ SCH ×4 (07:30→21:00)
[2020-06-17] MEDS: MUCINEX PO SCH ×2 (08:17→21:00)
[2020-06-17] MEDS: PEPCID PO SCH ×2 (08:17→21:00)
[2020-06-17] MEDS: NEURONTIN PO SCH ×2 (08:17→21:00)
[2020-06-17] MEDS: VITAMIN C PO SCH ×2 (08:17→21:00)
[2020-06-17 08:43] VITALS: BP 102/42
[2020-06-17] MEDS: COZAAR PO SCH (09:00)
--- NOTE | 2020-06-17 09:21 | NUR ---
0700: Assumed care of patient. Upon assessment patient's ETHAN midline was found without needless connector hub. Hub replaced using aseptic technique. Blood return present. Line saline locked and clamped. Charge nurse notified.
[2020-06-17] MEDS: LOVENOX SQ SCH (12:00)
[2020-06-17 12:15] VITALS: BP 107/52
--- NOTE | 2020-06-17 12:28 | PRM.PN ---
Subjective Subjective Date: Jun 17, 2020 Time: 12:24 Subjective 06/12/2020 Patient states that she is feeling better today we did discuss her 's condition who is in the ICU that he is still critical and at risk for acute deterioration at any time she wishes to continue cardiac arrhythmia medication should he have repeat episodes of SVT or V. fib however she does not want chest compressions or full CPR. We discussed that his creatinine is improving however his uremia persists. He is currently not stable on the ventilator or from a cardiac standpoint to transfer to [place] for dialysis but if we can improve his lungs he may be able to transport for dialysis if his creatinine does not continue to improve and he remains uremic. Patient complaint of cough and shortness of breath. Denies any diarrhea blood in the stool. Denies any leg swelling. She still need oxygen to keep saturation above 90%. Denies any fever. 06/13/2020 Denies any fever today. Appears with decrease of the shortness of breath. The cough is dry. She denies any abdominal pain or diarrhea. 06/14/2020. She still feels winded when she walked. She required oxygen continuously. Denies any shortness of breath or chest pain. Denies any diarrhea or fever. 06/15/2020. Patient blood pressure is in the lower side on the 190s. Holding parameters for medications were written. Patient referred improvement slowly of the shortness of breath. Denies chest pain or palpitations. 06/16/2020. Patient still requires oxygen to keep saturation above 90%. Denies any fever chills cough diarrhea. She is tolerating oral intake. 06/17/2020. Patient feels better today and is able to tolerate oxygen 2 to 3 L nasal cannula. Saturations are about 9495%. Patient History: Alzheimer's disease 33 FATHER, , Age:73 Chronic obstructive pulmonary disease G8 BROTHER FH: diverticulitis Hypertension 32 MOTHER, , Age:72 No known health problems G8 BROTHER (BRAIN INJURY FROM ELECTRICAL ACCIDENT) G8 SISTER V19 CHILD V19 CHILD V19 CHILD V19 CHILD No Family History of: Asthma Cerebrovascular disorder Congestive heart failure Diabetes insipidus Diabetes mellitus Parkinson's disease VTE VTE Risk Total Score: 0 VTE Risk Score VTE Risk: Score 0-1 = Low Risk (Aggressive mobilization; early ambulation; no VTE prophylaxis required) Score 2: Moderate Risk (Intermittent/Pneumatic Compression Device OR Lovenox/Heparin/Coumadin) Score 3-4: High Risk (Intermittent/Pneumatic Compression Device AND Lovenox/Heparin/Coumadin) Score > or =5: Highest Risk (Intermittent/Pneumatic Compression Device AND Lovenox/Heparin/Coumadin) Antico:Hep/LMWH/Coum/Xarelto: Yes Review of Systems Constitutional: No: Fever, Chills, Sweats, Weakness, Malaise Eyes: No: Pain, Vision change, Conjunctivae inflammation, Eyelid inflammation ENT: No: Nose pain, Nose discharge, Nose congestion, Mouth pain, Mouth swelling, Throat pain, Throat swelling, Other Respiratory: Cough, Shortness of breath; No: Sputum Cardiovascular: No: Chest Pain, Palpitations, Orthopnea, Paroxysmal Noc. Dyspnea, Edema Gastrointestinal: No: Nausea, Vomiting, Abdominal Pain Genitourinary: No Dysuria, No Frequency, No Incontinence, No Hematuria, No Retention Musculoskeletal: other; No: neck pain, shoulder pain, arm pain, back pain, hand pain, leg pain, foot pain Neurological: No: Weakness, Numbness Allergies: Coded Allergies: No Known Drug Allergies (Verified Allergy, Unknown, 06/03/20) Scheduled Dulaglutide (Trulicity), 0.75 MG SQ Q7D, (Reported) Gabapentin (Neurontin), 600 MG PO BID, (Reported) Olmesartan/Hydrochlorothiazide (Benicar Hct 20-12.5 Mg Tablet), 1 TAB PO DAILY, (Reported) Objective Vitals and I/O Vital Sign - Last 24 Hours 06/16/20 06/16/20 06/16/20 06/16/20 13:39 16:51 21:00 23:22 Temp 97.5 Pulse 68 81 Resp 19 19 B/P (MAP) 107/44 (65) Pulse Ox 91 92 94 O2 Delivery Nasal Canula Nasal Cannula Nasal Cannula O2 Flow Rate 3.00 3.00 FiO2 32 06/16/20 06/17/20 06/17/20 06/17/20 23:58 04:53 08:26 08:43 Temp 98.1 97.3 98.6 Pulse 60 73 71 Resp 18 18 19 B/P (MAP) 98/42 (60) 125/86 (99) 102/42 (62) Pulse Ox 91 96 96 O2 Delivery Nasal Canula Nasal Canula Nasal Cannula O2 Flow Rate 3.00 3.00 2.00 06/17/20 06/17/20 09:00 12:15 Temp 97.2 Pulse 71 Resp 19 B/P (MAP) 102/42 107/52 (70) Pulse Ox 91 Intake and Output 06/17/20 07:00 Intake Total 6957 ml Output Total 240 ml Balance 6717 ml General: Alert, Oriented X3, Cooperative, mild distress HEENT: Atraumatic, Mucous membr. moist/pink Neck: Supple Lungs: Clear to auscultation, Normal air movement Heart: Regular rate, No murmurs, Gallops, Rubs Abdomen: Normal bowel sounds, Soft, No tenderness Skin: No rashes, No significant lesion Neuro: Normal speech, Strength at 5/5 X4 ext, Normal tone, Cranial nerves 3-12 NL Psych/Mental Status: Mental status NL, Mood NL All Results(Lab/Rad) Laboratory Tests Test 06/07/20 15:00 06/07/20 19:50 06/08/20 04:35 06/08/20 05:47 Bedside Glucose 173 260 163 White Blood Count 16.3 10^3/uL Red Blood Count 4.42 10^6/uL Hemoglobin 13.2 g/dL Hematocrit 38.3 % Mean Corpuscular Volume 86.7 fL Mean Corpuscular Hemoglobin 29.9 pg Mean Corpuscular Hemoglobin Concent 34.5 g/dL Red Cell Distribution Width 12.7 % Platelet Count 402 10^3/uL Mean Platelet Volume 9.8 fL Neutrophils (%) (Auto) 87.2 % Lymphocytes (%) (Auto) 3.7 % Monocytes (%) (Auto) 4.7 % Neutrophils # (Auto) 14.2 10^3/uL Lymphocytes # (Auto) 0.60 10^3/uL1 Monocytes # (Auto) 0.8 10^3/uL Absolute Immature Granulocyte (auto 0.70 10^3 u/L Absolute Eosinophils (auto) 0.0 10^3/uL Immature Granulocytes % 4.30 % Eosinophils % 0.0 % Basophils % 0.1 % Basophils # 0.0 10^3/uL Sodium Level 141 mmol/L Potassium Level 3.7 mmol/L Chloride Level 104.0 mmol/L Carbon Dioxide Level 28.4 mmol/L Anion Gap 12.3 Blood Urea Nitrogen 42 mg/dL Creatinine 0.98 mg/dL Estimated GFR () 70.3 Est GFR (CKD-EPI)(Non-Afr [place]) 58.1 BUN/Creatinine Ratio 42.0 Glucose Level 192 mg/dL Calcium Level 9.1 mg/dL Total Bilirubin 0.4 mg/dL Aspartate Amino Transf (AST/SGOT) 37 U/L Alanine Aminotransferase (ALT/SGPT) 78 U/L Alkaline Phosphatase 55 U/L Total Protein 6.4 g/dL Albumin 2.6 g/dL Globulin 3.8 Albumin/Globulin Ratio 0.684 Test 06/08/20 07:03 06/08/20 08:05 Differential Total Cells Counted 100 #CELLS Segmented Neutrophils 88 % Band Neutrophils 1 % Lymphocytes 3 % Monocytes 7 % Metamyelocytes 1 % Platelet Estimate INCREASED Platelet Morphology NORMAL Blood Morphology Comment NORMAL MORPHOLOGY Bedside Glucose 175 Current Medications Medications (Trade) Dose Ordered Sig/Stas Route PRN Reason Start Time Stop Time Status Last Admin Dose Admin Ceftriaxone Sodium 1000 mg/ Sodium Chloride 100 ml @ 100 mls/hr STAT STAT IV 06/05/20 12:28 06/05/20 15:44 DC 06/05/20 12:56 Lorazepam (Ativan) 1 mg STAT STAT IV 06/05/20 12:33 06/05/20 15:44 DC 06/05/20 12:56 Ceftriaxone Sodium (Rocephin) 1,000 mg STK-MED ONCE .ROUTE 06/05/20 12:32 06/05/20 12:35 DC Enoxaparin Sodium (Lovenox) 90 mg STAT STAT SQ 06/05/20 13:39 06/05/20 13:41 DC Enoxaparin Sodium (Lovenox) 90 mg STAT STAT SQ 06/05/20 13:42 06/05/20 13:44 DC 06/05/20 14:15 Enoxaparin Sodium (Lovenox) 100 mg STK-MED ONCE SQ 06/05/20 13:42 06/05/20 13:44 DC Ceftriaxone Sodium 1000 mg/ Sodium Chloride 100 ml @ 100 mls/hr Q24HRS IV 06/06/20 13:00 07/06/20 12:59 06/07/20 12:56 Acetaminophen (Tylenol) 1,000 mg Q6H PRN PO PAIN 1 - 3 06/05/20 15:30 07/05/20 15:29 06/07/20 20:32 Zolpidem Tartrate (Ambien) 5 mg HS PRN PO INSOMNIA 06/05/20 15:30 07/05/20 15:29 06/07/20 20:32 Morphine Sulfate (Morphine Sulfate) 2 mg Q4H PRN IV PAIN 7 - 10 06/05/20 15:30 07/05/20 15:29 Insulin Human Lispro (Humalog) 0-140 0 Units 141-200... ACHS SQ 06/05/20 17:30 07/05/20 17:29 06/08/20 11:30 Dextrose (Dextrose 50%-Water Syringe) 25 ml STAT PRN IV HYPOGLYCEMIA 06/05/20 15:30 07/05/20 15:29 Guaifenesin (Mucinex) 1,200 mg BID PO 06/05/20 21:00 07/05/20 20:59 06/08/20 09:50 Zinc Sulfate (Zinc Sulfate) 220 mg STAT STAT PO 06/05/20 15:37 06/05/20 15:47 DC 06/05/20 17:31 Azithromycin 500 mg/Sodium Chloride 250 ml @ 175 mls/hr Q24HRS IV 06/05/20 16:00 06/05/20 17:50 DC Furosemide (Lasix) 20 mg STAT IV 06/05/20 16:00 07/05/20 15:59 06/05/20 22:09 Ascorbic Acid (Vitamin C) 500 mg BID PO 06/05/20 21:00 07/05/20 20:59 06/08/20 09:49 Insulin Glargine (Lantus) 10 unit HS SQ 06/05/20 21:00 07/05/20 20:59 06/07/20 20:08 Remdesivir 200 mg/ Sodium Chloride 140 ml @ 120.69 mls/ hr OT STAT IV 06/05/20 15:37 06/05/20 16:46 DC 06/05/20 17:31 Famotidine (Pepcid) 20 mg BID PO 06/05/20 21:00 07/05/20 20:59 06/08/20 09:49 Enoxaparin Sodium (Lovenox) 80 mg BID SQ 06/05/20 21:00 06/07/20 12:14 DC 06/07/20 09:29 Gabapentin (Neurontin) 600 mg BID PO 06/05/20 21:00 07/05/20 20:59 06/08/20 09:50 Losartan Potassium (Cozaar) 100 mg DAILY PO 06/06/20 09:00 07/06/20 08:59 06/07/20 09:29 Hydrochlorothiazide (Hydrochlorothiazide) 12.5 mg DAILY PO 06/06/20 09:00 07/06/20 08:59 06/07/20 09:29 Zinc Sulfate (Zinc Sulfate) 220 mg STK-MED ONCE .ROUTE 06/05/20 17:08 06/05/20 17:11 DC Azithromycin 500 mg/Sodium Chloride 250 ml @ 175 mls/hr Q24HRS IV 06/05/20 20:00 07/05/20 19:59 06/07/20 20:30 Sodium Chloride 250 ml @ ud STK-MED ONCE IV 06/05/20 20:50 06/05/20 20:52 DC Sodium Chloride 500 ml @ ud STK-MED ONCE IV 06/06/20 00:24 06/06/20 00:26 DC Remdesivir 100 mg/ Sodium Chloride 120 ml @ 111.111 mls/hr Q24HRS IV 06/06/20 15:00 06/09/20 16:05 06/07/20 15:11 Enoxaparin Sodium (Lovenox) 40 mg Q24HRS SQ 06/08/20 12:30 07/08/20 12:29 06/08/20 12:26 Course Sepsis Screening Results: Posi: POSITIVE Sepsis Qualifier/Stage: SEPSIS RISK Duration or Total Time Spent w: 15 min Vitals & review Data Vital Sign - Last 24 Hours 06/07/20 06/07/20 06/07/20 06/07/20 16:58 19:19 21:33 23:40 Temp 98.1 98.0 98.1 Pulse 53 62 76 Resp 19 18 18 B/P (MAP) 137/65 (89) 115/57 (76) 132/61 (84) Pulse Ox 93 95 97 O2 Delivery Non-Rebreather O2 Flow Rate 15.00 06/08/20 06/08/20 06/08/20 06/08/20 04:08 08:38 09:00 09:00 Temp 98.2 97.1 Pulse 82 66 Resp 18 19 B/P (MAP) 136/67 (90) 114/52 (72) 114/52 114/52 Pulse Ox 96 90 O2 Delivery Comfort Flow O2 Flow Rate 15.00 06/08/20 12:08 Temp 98.0 Pulse 67 Resp 20 B/P (MAP) 134/62 (86) Pulse Ox 90 Laboratory Tests Test 06/06/20 16:19 06/06/20 20:18 06/07/20 04:57 06/07/20 07:45 Bedside Glucose 203 216 169 165 Test 06/07/20 08:25 06/07/20 09:12 06/07/20 11:06 06/07/20 15:00 White Blood Count 13.4 10^3/uL Red Blood Count 4.77 10^6/uL Hemoglobin 14.0 g/dL Hematocrit 42.5 % Mean Corpuscular Volume 89.1 fL Mean Corpuscular Hemoglobin 29.4 pg Mean Corpuscular Hemoglobin Concent 32.9 g/dL Red Cell Distribution Width 13.0 % Platelet Count 348 10^3/uL Mean Platelet Volume 9.8 fL Neutrophils (%) (Auto) 83.5 % Lymphocytes (%) (Auto) 6.3 % Monocytes (%) (Auto) 5.3 % Neutrophils # (Auto) 11.2 10^3/uL Lymphocytes # (Auto) 0.85 10^3/uL1 Monocytes # (Auto) 0.7 10^3/uL Absolute Immature Granulocyte (auto 0.64 10^3 u/L Absolute Eosinophils (auto) 0.0 10^3/uL Immature Granulocytes % 4.80 % Eosinophils % 0.0 % Basophils % 0.1 % Basophils # 0.0 10^3/uL Sodium Level 141 mmol/L Potassium Level 3.5 mmol/L Chloride Level 103.0 mmol/L Carbon Dioxide Level 29.5 mmol/L Anion Gap 12.0 Blood Urea Nitrogen 45 mg/dL Creatinine 0.96 mg/dL Estimated GFR () 72.0 Est GFR (CKD-EPI)(Non-Afr [place]) 59.5 BUN/Creatinine Ratio 46.0 Glucose Level 194 mg/dL Calcium Level 9.2 mg/dL Total Bilirubin 0.4 mg/dL Aspartate Amino Transf (AST/SGOT) 84 U/L Alanine Aminotransferase (ALT/SGPT) 96 U/L Alkaline Phosphatase 62 U/L Total Protein 6.9 g/dL Albumin 2.8 g/dL Globulin 4.1 Albumin/Globulin Ratio 0.682 Differential Total Cells Counted 100 #CELLS Segmented Neutrophils 81 % Band Neutrophils 2 % Lymphocytes 9 % Monocytes 5 % Metamyelocytes 1 % Myelocytes 1 % Toxic Granulation 1+ Platelet Estimate ADEQUATE Platelet Morphology NORMAL Blood Morphology Comment NORMAL MORPHOLOGY Bedside Glucose 178 173 Test 06/07/20 19:50 06/08/20 04:35 06/08/20 05:47 06/08/20 07:03 Bedside Glucose 260 163 White Blood Count 16.3 10^3/uL Red Blood Count 4.42 10^6/uL Hemoglobin 13.2 g/dL Hematocrit 38.3 % Mean Corpuscular Volume 86.7 fL Mean Corpuscular Hemoglobin 29.9 pg Mean Corpuscular Hemoglobin Concent 34.5 g/dL Red Cell Distribution Width 12.7 % Platelet Count 402 10^3/uL Mean Platelet Volume 9.8 fL Neutrophils (%) (Auto) 87.2 % Lymphocytes (%) (Auto) 3.7 % Monocytes (%) (Auto) 4.7 % Neutrophils # (Auto) 14.2 10^3/uL Lymphocytes # (Auto) 0.60 10^3/uL1 Monocytes # (Auto) 0.8 10^3/uL Absolute Immature Granulocyte (auto 0.70 10^3 u/L Absolute Eosinophils (auto) 0.0 10^3/uL Immature Granulocytes % 4.30 % Eosinophils % 0.0 % Basophils % 0.1 % Basophils # 0.0 10^3/uL Sodium Level 141 mmol/L Potassium Level 3.7 mmol/L Chloride Level 104.0 mmol/L Carbon Dioxide Level 28.4 mmol/L Anion Gap 12.3 Blood Urea Nitrogen 42 mg/dL Creatinine 0.98 mg/dL Estimated GFR () 70.3 Est GFR (CKD-EPI)(Non-Afr [place]) 58.1 BUN/Creatinine Ratio 42.0 Glucose Level 192 mg/dL Calcium Level 9.1 mg/dL Total Bilirubin 0.4 mg/dL Aspartate Amino Transf (AST/SGOT) 37 U/L Alanine Aminotransferase (ALT/SGPT) 78 U/L Alkaline Phosphatase 55 U/L Total Protein 6.4 g/dL Albumin 2.6 g/dL Globulin 3.8 Albumin/Globulin Ratio 0.684 Differential Total Cells Counted 100 #CELLS Segmented Neutrophils 88 % Band Neutrophils 1 % Lymphocytes 3 % Monocytes 7 % Metamyelocytes 1 % Platelet Estimate INCREASED Platelet Morphology NORMAL Blood Morphology Comment NORMAL MORPHOLOGY Test 06/08/20 08:05 Bedside Glucose 175 Current Medications Medications (Trade) Dose Ordered Sig/Stas PRN Reason Start Time Stop Time Status Last Admin Acetaminophen (Tylenol) 1,000 mg Q6H PRN PAIN 1 - 3 06/05/20 15:30 07/05/20 15:29 06/07/20 20:32 Ascorbic Acid (Vitamin C) 500 mg BID 06/05/20 21:00 07/05/20 20:59 06/08/20 09:49 Azithromycin 500 mg/Sodium Chloride 250 ml @ 175 mls/hr Q24HRS 06/05/20 20:00 07/05/20 19:59 06/07/20 20:30 Ceftriaxone Sodium 1000 mg/ Sodium Chloride 100 ml @ 100 mls/hr Q24HRS 06/06/20 13:00 07/06/20 12:59 06/07/20 12:56 Dextrose (Dextrose 50%-Water Syringe) 25 ml STAT PRN HYPOGLYCEMIA 06/05/20 15:30 07/05/20 15:29 Enoxaparin Sodium (Lovenox) 40 mg Q24HRS 06/08/20 12:30 07/08/20 12:29 06/08/20 12:26 Famotidine (Pepcid) 20 mg BID 06/05/20 21:00 07/05/20 20:59 06/08/20 09:49 Furosemide (Lasix) 20 mg STAT 06/05/20 16:00 07/05/20 15:59 06/05/20 22:09 Gabapentin (Neurontin) 600 mg BID 06/05/20 21:00 07/05/20 20:59 06/08/20 09:50 Guaifenesin (Mucinex) 1,200 mg BID 06/05/20 21:00 07/05/20 20:59 06/08/20 09:50 Hydrochlorothiazide (Hydrochlorothiazide) 12.5 mg DAILY 06/06/20 09:00 07/06/20 08:59 06/07/20 09:29 Insulin Glargine (Lantus) 10 unit HS 06/05/20 21:00 07/05/20 20:59 06/07/20 20:08 Insulin Human Lispro (Humalog) 0-140 0 Units 141-200... ACHS 06/05/20 17:30 07/05/20 17:29 06/08/20 11:30 Losartan Potassium (Cozaar) 100 mg DAILY 06/06/20 09:00 07/06/20 08:59 06/07/20 09:29 Morphine Sulfate (Morphine Sulfate) 2 mg Q4H PRN PAIN 7 - 10 06/05/20 15:30 07/05/20 15:29 Remdesivir 100 mg/ Sodium Chloride 120 ml @ 111.111 mls/hr Q24HRS 06/06/20 15:00 06/09/20 16:05 06/07/20 15:11 Zolpidem Tartrate (Ambien) 5 mg HS PRN INSOMNIA 06/05/20 15:30 07/05/20 15:29 06/07/20 20:32 LEVEL 1 SEPSIS INFECTION CRITE: ABX Therapy, Cough/Shortness of Breath LEVEL 2-SIRS (LIST ALL THAT AP: [id number] Cardiovascular Evidence: Not Assessed or None Hematologic Evidence: None/Not assessed Hepatic Evidence: None/Not assessed Metabolic Evidence: None/Not assessed Neurological Evidence: None/Not assessed Respiratory Evidence: Need for O2 to keep>90%, O2 SAT<90room air Renal Evidence: None/Not assessed O2 Sat by Pulse Oximetry: 91 Oxygen Flow Rate: 2.00 Assessment/Plan Assessment/Plan Assessment/Plan 60-year-old female with past medical history significant for hypertension diabetes mellitus, with Covid pneumonia secondary to Covid infection. Patient received steroids as well as remdesivir and antibiotics that she completed. Her saturations start improving greatly and now she is able to tolerate 2 to 3 L/min. Her white count is also coming down to 14,000. Kidney function is a stable. 1. Pneumonia, Likely related to Covid 19 2.COVID-19 Infection I 3. Essential (primary) hypertension. She has been having low blood pressure readings over the last 2 days with blood pressure on the [id number]. 4. Diabetes mellitus. Appears to be out of control because of the steroid use. Blood sugar [id number]. Plan 1. Pneumonia, Likely related to Covid 19 White count elevated at 18,000 could be from a stress as well as from Covid oral steroids Patient still requires oxygen 6 L via nasal cannula to keep sats above 90%. Chest x-ray shows multifocal infiltrates and ground-glass opacities scattered throughout both lungs. The findings are commonly reported imaging features of COVID-19 pneumonia. Patient white count is coming down from 18,000-16,000.White count elevation likely related to the steroid treatment. Patient saturation is 92% on 6 L nasal cannula. Patient is working on the incentive spirometry and increase activity. 06/14/2020Labs shows a sodium 134, potassium 3.7, BUN 18 creatinine 0.8 06/15/2020. Inflammatory markers shows a ferritin of 457 and a CRP normal at 173. Her white count is coming up to 17,000 perhaps related to steroids. She is getting progressively better with decrease of the shortness of breath. She still requires oxygen to keep saturation above 90%. Her blood sugars are between 140 9234. She will require adjustment of the insulin 06/16/2020. Patient has some improvement of the renal function to near normal and platelet white count is also improving from 17,000-14,000. Her ferritin is 497 and CRP is elevated at 717. Blood sugars are now around 115. Patient is still require oxygen to keep saturations above 90% Patient saturation is now 90 to 94% on nasal cannula to 3 L/min. She is improving from hypoxemia. Her white count is improving from 17,000-14,000. Her sodium 138, potassium 4.5 BUN 17, creatinine 0.7. Plan Continue oxygen to keep saturation above 90% continue current management with Combination of remdesivir, azithromycin, ceftriaxone, vitamin C, dexamethasone, Lovenox 80 mg subcu every 24 hours home O2 evaluation 2.COVID-19 Infection Improving, continue current management with medication, O2 and IS. Plan Follow inflammatory markers. 3. Essential (primary) hypertension. She has been having low blood pressure readings over the last 2 days with blood pressure on the [id number]. Patient is currently on losartan . Plan I placed holding parameters hold if blood pressure is 160. Discontinue HCTZ 4. Diabetes mellitus. Appears to be out of control because of the steroid use. Blood sugar [id number]. Plan continue Regular Insulin sliding scale and Lantus 30 units daily. Patient is on a diabetic diet DVT prophylaxis Enoxaparin Pepcid for GI PPX CODE STATUS:Full code Dispo: Home DAVID HITCHCOCK MD Jun 17, 2020 12:28
--- NOTE | 2020-06-17 13:27 | NUR ---
02 challenge: Pt 96% on 2lpm via NC. 02 removed, patient desaturated to 84% on RA while ambulating. Placed back on 2lpm with recovery of 02 to >90%.
[2020-06-17] MEDS: ROCEPHIN 1,000 MG in NS 100ML 100 ML IV SCH (16:12)
--- NOTE | 2020-06-17 16:20 | DIET.OP ---
Nutrition Asmt/Malnutrit 2-17 Actual Date of Review: Jun 17, 2020 Diagnosis: covid, hypoxia Pertinent Medical Hx/Surgical: DM, HTN Subjective Information: telehealth f/u Current Diet Order/Nutrition S: 1500 kaylin ADA Patient /S.O: Not Indicated Pertinent Meds Current Medications Medications (Trade) Dose Ordered Sig/Stas PRN Reason Start Time Stop Time Status Last Admin Insulin Glargine (Lantus) 30 unit HS 06/15/20 21:00 07/15/20 20:59 06/16/20 22:15 Pertinent Labs BG 155, POC 162-179 mg/dl today. Alb 2.2 Height (Feet): 5 Height (Inches): 5 Current Weight: 201 Usual Weight: 205 %IBW: 161 Recent Weight Change: No (wt stable since admission) Weight Status: Obese GI Symptoms: Last BM (06/17) Food Allergies: No Cultural/Ethnic/Advent Radha: none Current %PO: Good(75-100%) Calories/Kcals/K-25 kcal/kg IBW Kcals Calculated: 2051-1700 Protein: Use Current Weight Protein g/k.7-0.9 g/kg Protein Calculated: 64-82g Fluid: ml: 1425 ml (1ml/kcal) Nutritional Problem: No Cur. Nutritional Probl Signs/Symptoms: po intake meeting estimated needs, no wt changes RD Comments: Continue to monitor BG and correct as indicated. Expected Outcomes 75-100% po intake of meals. BG 150-180 mg/dl Discharge on consistent carb diet Malnutrtion/Nutrition Risk Edu: No MD Notificiation Needed?: No Vero Denise Jun 17, 2020 16:20
[2020-06-17 16:44] VITALS: BP 96/47
[2020-06-17] MEDS: ZITHROMAX 500 MG in NS 250ML 250 ML IV SCH (20:00)
[2020-06-17] MEDS: LANTUS SQ SCH (21:00)
[2020-06-18 00:24] VITALS: BP 93/44
[2020-06-18 00:58] VITALS: BP 93/44
[2020-06-18 04:53] VITALS: BP 102/54
[2020-06-18 05:18] LABS: BASOPHIL # 0.1 10^3/uL (0.0-0.1); BASOPHIL % 0.7 % (0.0-0.2); EOSINOPHIL # 0.2 10^3/uL (0.0-0.2); EOSINOPHIL % 2.6 % (0.0-5.0); LYMPHOCYTES # 0.87 10^3/uL1 (1.0-4.8); LYMPHOCYTES % 10.1 % (24.0-44.0); MEAN CORP HGB 29.6 pg (26-34); MONOCYTES # 0.8 10^3/uL (0.3-0.8); MONOCYTES % 9.8 % (5.0-12.0); NEUTROPHIL # 6.6 10^3/uL (1.8-7.7); PLATELET COUNT 293 10^3/uL (150-400); RED CELL DISTRIBUTION WIDTH 14.1 % (11.5-14.5)
[2020-06-18 05:56] LABS: CALCIUM 8.7 mg/dL (8.4-10.5); CARBON DIOXIDE 29.9 mmol/L (20.0-32)
[2020-06-18] MEDS: HUMALOG SQ SCH ×2 (07:30→11:30)
[2020-06-18] MEDS: PEPCID PO SCH (08:30)
[2020-06-18] MEDS: VITAMIN C PO SCH (08:30)
[2020-06-18] MEDS: MUCINEX PO SCH (08:30)
[2020-06-18] MEDS: NEURONTIN PO SCH (08:30)
[2020-06-18] MEDS: COZAAR PO SCH (08:31)
[2020-06-18 08:38] VITALS: BP 110/90
[2020-06-18] MEDS: LOVENOX SQ SCH (12:00)
[2020-06-18 12:11] VITALS: BP 102/42
[2020-06-18] MEDS ORDERED: GUAI600T31 PO (15:19)
[2020-06-18] MEDS ORDERED: FAMO20TA5 PO (15:19)
[2020-06-18] MEDS ORDERED: INSU100V8 SQ (15:19)
[2020-06-18] MEDS ORDERED: APIX5TAB PO (15:19)
[2020-06-18] MEDS ORDERED: ASCO500T5 PO (15:19)
--- NOTE | 2020-06-18 15:22 | PRM.DC ---
Discharge Summary Date of Discharge: Jun 18, 2020 Time of Request to Discharge: 15:20 Hospital Course 60-year-old female admitted with Covid pneumonia Covid infection. Developed hypoxemia requiring oxygen. She also had elevated BNP was given Lasix. Patient started anticoagulation with Lovenox at 80 mg twice daily. She was treated with remdesivir as steroids and antibiotics. Patient improved slowly. Kidney function returned to normal. She is slowly titrated from oxygen that initially was around 6 L. She was able to tolerate 2 to 3 L nasal cannula with saturations above 90%. She will have oxygen at home. I will continue Eliquis 5 mg twice daily for the next 30 days. Reevaluate by PCP.Patient will resume losartan 50 mg daily for hypertension. Continue gabapentin for chronic pain Patient History: Alzheimer's disease 33 FATHER, , Age:73 Chronic obstructive pulmonary disease G8 BROTHER FH: diverticulitis Hypertension 32 MOTHER, , Age:72 No known health problems G8 BROTHER (BRAIN INJURY FROM ELECTRICAL ACCIDENT) G8 SISTER V19 CHILD V19 CHILD V19 CHILD V19 CHILD No Family History of: Asthma Cerebrovascular disorder Congestive heart failure Diabetes insipidus Diabetes mellitus Parkinson's disease History Present Illness: (1) Respiratory distress Status: Acute ICD Code: R06.03 - Acute respiratory distress SNOMED: 929393073 (2) Hypertension Status: Chronic ICD Code: I10 - Essential (primary) hypertension SNOMED: 71719681 (3) Elevated brain natriuretic peptide (BNP) level ICD Code: R79.89 - Other specified abnormal findings of blood chemistry SNOMED: 096213765, 436088246 (4) Hypoxia Status: Acute ICD Code: R09.02 - Hypoxemia SNOMED: 796647998 (5) Pneumonia Status: Acute ICD Code: J18.9 - Pneumonia, unspecified organism SNOMED: 987570156 (6) 2019 novel coronavirus disease (COVID-19) Status: Acute ICD Code: U07.1 - COVID-19 SNOMED: 410819498 Scheduled Apixaban (Eliquis), 5 MG PO BID Ascorbic Acid (Ascorbic Acid), 500 MG PO BID Dulaglutide (Trulicity), 0.75 MG SQ Q7D, (Reported) Famotidine (Famotidine), 20 MG PO BID Gabapentin (Neurontin), 600 MG PO BID, (Reported) Guaifenesin (Mucinex), 1,200 MG PO BID Insulin Glargine,Hum.rec.anlog (Lantus), 30 UNIT SQ HS Olmesartan/Hydrochlorothiazide (Benicar Hct 20-12.5 Mg Tablet), 1 TAB PO DAILY, (Reported) Sepsis Evaluation @ Discharge Vital Sign - Last 24 Hours 06/07/20 06/07/20 06/07/20 06/07/20 16:58 19:19 21:33 23:40 Temp 98.1 98.0 98.1 Pulse 53 62 76 Resp 19 18 18 B/P (MAP) 137/65 (89) 115/57 (76) 132/61 (84) Pulse Ox 93 95 97 O2 Delivery Non-Rebreather O2 Flow Rate 15.00 06/08/20 06/08/20 06/08/20 06/08/20 04:08 08:38 09:00 09:00 Temp 98.2 97.1 Pulse 82 66 Resp 18 19 B/P (MAP) 136/67 (90) 114/52 (72) 114/52 114/52 Pulse Ox 96 90 O2 Delivery Comfort Flow O2 Flow Rate 15.00 06/08/20 12:08 Temp 98.0 Pulse 67 Resp 20 B/P (MAP) 134/62 (86) Pulse Ox 90 Laboratory Tests Test 06/06/20 16:19 06/06/20 20:18 06/07/20 04:57 06/07/20 07:45 Bedside Glucose 203 216 169 165 Test 06/07/20 08:25 06/07/20 09:12 06/07/20 11:06 06/07/20 15:00 White Blood Count 13.4 10^3/uL Red Blood Count 4.77 10^6/uL Hemoglobin 14.0 g/dL Hematocrit 42.5 % Mean Corpuscular Volume 89.1 fL Mean Corpuscular Hemoglobin 29.4 pg Mean Corpuscular Hemoglobin Concent 32.9 g/dL Red Cell Distribution Width 13.0 % Platelet Count 348 10^3/uL Mean Platelet Volume 9.8 fL Neutrophils (%) (Auto) 83.5 % Lymphocytes (%) (Auto) 6.3 % Monocytes (%) (Auto) 5.3 % Neutrophils # (Auto) 11.2 10^3/uL Lymphocytes # (Auto) 0.85 10^3/uL1 Monocytes # (Auto) 0.7 10^3/uL Absolute Immature Granulocyte (auto 0.64 10^3 u/L Absolute Eosinophils (auto) 0.0 10^3/uL Immature Granulocytes % 4.80 % Eosinophils % 0.0 % Basophils % 0.1 % Basophils # 0.0 10^3/uL Sodium Level 141 mmol/L Potassium Level 3.5 mmol/L Chloride Level 103.0 mmol/L Carbon Dioxide Level 29.5 mmol/L Anion Gap 12.0 Blood Urea Nitrogen 45 mg/dL Creatinine 0.96 mg/dL Estimated GFR () 72.0 Est GFR (CKD-EPI)(Non-Afr Turkmen) 59.5 BUN/Creatinine Ratio 46.0 Glucose Level 194 mg/dL Calcium Level 9.2 mg/dL Total Bilirubin 0.4 mg/dL Aspartate Amino Transf (AST/SGOT) 84 U/L Alanine Aminotransferase (ALT/SGPT) 96 U/L Alkaline Phosphatase 62 U/L Total Protein 6.9 g/dL Albumin 2.8 g/dL Globulin 4.1 Albumin/Globulin Ratio 0.682 Differential Total Cells Counted 100 #CELLS Segmented Neutrophils 81 % Band Neutrophils 2 % Lymphocytes 9 % Monocytes 5 % Metamyelocytes 1 % Myelocytes 1 % Toxic Granulation 1+ Platelet Estimate ADEQUATE Platelet Morphology NORMAL Blood Morphology Comment NORMAL MORPHOLOGY Bedside Glucose 178 173 Test 06/07/20 19:50 06/08/20 04:35 06/08/20 05:47 06/08/20 07:03 Bedside Glucose 260 163 White Blood Count 16.3 10^3/uL Red Blood Count 4.42 10^6/uL Hemoglobin 13.2 g/dL Hematocrit 38.3 % Mean Corpuscular Volume 86.7 fL Mean Corpuscular Hemoglobin 29.9 pg Mean Corpuscular Hemoglobin Concent 34.5 g/dL Red Cell Distribution Width 12.7 % Platelet Count 402 10^3/uL Mean Platelet Volume 9.8 fL Neutrophils (%) (Auto) 87.2 % Lymphocytes (%) (Auto) 3.7 % Monocytes (%) (Auto) 4.7 % Neutrophils # (Auto) 14.2 10^3/uL Lymphocytes # (Auto) 0.60 10^3/uL1 Monocytes # (Auto) 0.8 10^3/uL Absolute Immature Granulocyte (auto 0.70 10^3 u/L Absolute Eosinophils (auto) 0.0 10^3/uL Immature Granulocytes % 4.30 % Eosinophils % 0.0 % Basophils % 0.1 % Basophils # 0.0 10^3/uL Sodium Level 141 mmol/L Potassium Level 3.7 mmol/L Chloride Level 104.0 mmol/L Carbon Dioxide Level 28.4 mmol/L Anion Gap 12.3 Blood Urea Nitrogen 42 mg/dL Creatinine 0.98 mg/dL Estimated GFR () 70.3 Est GFR (CKD-EPI)(Non-Afr Turkmen) 58.1 BUN/Creatinine Ratio 42.0 Glucose Level 192 mg/dL Calcium Level 9.1 mg/dL Total Bilirubin 0.4 mg/dL Aspartate Amino Transf (AST/SGOT) 37 U/L Alanine Aminotransferase (ALT/SGPT) 78 U/L Alkaline Phosphatase 55 U/L Total Protein 6.4 g/dL Albumin 2.6 g/dL Globulin 3.8 Albumin/Globulin Ratio 0.684 Differential Total Cells Counted 100 #CELLS Segmented Neutrophils 88 % Band Neutrophils 1 % Lymphocytes 3 % Monocytes 7 % Metamyelocytes 1 % Platelet Estimate INCREASED Platelet Morphology NORMAL Blood Morphology Comment NORMAL MORPHOLOGY Test 06/08/20 08:05 Bedside Glucose 175 Current Medications Medications (Trade) Dose Ordered Sig/Stas PRN Reason Start Time Stop Time Status Last Admin Acetaminophen (Tylenol) 1,000 mg Q6H PRN PAIN 1 - 3 06/05/20 15:30 07/05/20 15:29 06/07/20 20:32 Ascorbic Acid (Vitamin C) 500 mg BID 06/05/20 21:00 07/05/20 20:59 06/08/20 09:49 Azithromycin 500 mg/Sodium Chloride 250 ml @ 175 mls/hr Q24HRS 06/05/20 20:00 07/05/20 19:59 06/07/20 20:30 Ceftriaxone Sodium 1000 mg/ Sodium Chloride 100 ml @ 100 mls/hr Q24HRS 06/06/20 13:00 07/06/20 12:59 06/07/20 12:56 Dextrose (Dextrose 50%-Water Syringe) 25 ml STAT PRN HYPOGLYCEMIA 06/05/20 15:30 07/05/20 15:29 Enoxaparin Sodium (Lovenox) 40 mg Q24HRS 06/08/20 12:30 07/08/20 12:29 06/08/20 12:26 Famotidine (Pepcid) 20 mg BID 06/05/20 21:00 07/05/20 20:59 06/08/20 09:49 Furosemide (Lasix) 20 mg STAT 06/05/20 16:00 07/05/20 15:59 06/05/20 22:09 Gabapentin (Neurontin) 600 mg BID 06/05/20 21:00 07/05/20 20:59 06/08/20 09:50 Guaifenesin (Mucinex) 1,200 mg BID 06/05/20 21:00 07/05/20 20:59 06/08/20 09:50 Hydrochlorothiazide (Hydrochlorothiazide) 12.5 mg DAILY 06/06/20 09:00 07/06/20 08:59 06/07/20 09:29 Insulin Glargine (Lantus) 10 unit HS 06/05/20 21:00 07/05/20 20:59 06/07/20 20:08 Insulin Human Lispro (Humalog) 0-140 0 Units 141-200... ACHS 06/05/20 17:30 07/05/20 17:29 06/08/20 11:30 Losartan Potassium (Cozaar) 100 mg DAILY 06/06/20 09:00 07/06/20 08:59 06/07/20 09:29 Morphine Sulfate (Morphine Sulfate) 2 mg Q4H PRN PAIN 7 - 10 06/05/20 15:30 07/05/20 15:29 Remdesivir 100 mg/ Sodium Chloride 120 ml @ 111.111 mls/hr Q24HRS 06/06/20 15:00 06/09/20 16:05 06/07/20 15:11 Zolpidem Tartrate (Ambien) 5 mg HS PRN INSOMNIA 06/05/20 15:30 07/05/20 15:29 06/07/20 20:32 Course Sepsis Screening Results: Posi: POSITIVE Sepsis Qualifier/Stage: SEPSIS RISK Duration or Total Time Spent w: 15 min Vitals & review Data Vital Sign - Last 24 Hours 06/07/20 06/07/20 06/07/20 06/07/20 16:58 19:19 21:33 23:40 Temp 98.1 98.0 98.1 Pulse 53 62 76 Resp 19 18 18 B/P (MAP) 137/65 (89) 115/57 (76) 132/61 (84) Pulse Ox 93 95 97 O2 Delivery Non-Rebreather O2 Flow Rate 15.00 06/08/20 06/08/20 06/08/20 06/08/20 04:08 08:38 09:00 09:00 Temp 98.2 97.1 Pulse 82 66 Resp 18 19 B/P (MAP) 136/67 (90) 114/52 (72) 114/52 114/52 Pulse Ox 96 90 O2 Delivery Comfort Flow O2 Flow Rate 15.00 06/08/20 12:08 Temp 98.0 Pulse 67 Resp 20 B/P (MAP) 134/62 (86) Pulse Ox 90 Laboratory Tests Test 06/06/20 16:19 06/06/20 20:18 06/07/20 04:57 06/07/20 07:45 Bedside Glucose 203 216 169 165 Test 06/07/20 08:25 06/07/20 09:12 06/07/20 11:06 06/07/20 15:00 White Blood Count 13.4 10^3/uL Red Blood Count 4.77 10^6/uL Hemoglobin 14.0 g/dL Hematocrit 42.5 % Mean Corpuscular Volume 89.1 fL Mean Corpuscular Hemoglobin 29.4 pg Mean Corpuscular Hemoglobin Concent 32.9 g/dL Red Cell Distribution Width 13.0 % Platelet Count 348 10^3/uL Mean Platelet Volume 9.8 fL Neutrophils (%) (Auto) 83.5 % Lymphocytes (%) (Auto) 6.3 % Monocytes (%) (Auto) 5.3 % Neutrophils # (Auto) 11.2 10^3/uL Lymphocytes # (Auto) 0.85 10^3/uL1 Monocytes # (Auto) 0.7 10^3/uL Absolute Immature Granulocyte (auto 0.64 10^3 u/L Absolute Eosinophils (auto) 0.0 10^3/uL Immature Granulocytes % 4.80 % Eosinophils % 0.0 % Basophils % 0.1 % Basophils # 0.0 10^3/uL Sodium Level 141 mmol/L Potassium Level 3.5 mmol/L Chloride Level 103.0 mmol/L Carbon Dioxide Level 29.5 mmol/L Anion Gap 12.0 Blood Urea Nitrogen 45 mg/dL Creatinine 0.96 mg/dL Estimated GFR () 72.0 Est GFR (CKD-EPI)(Non-Afr Turkmen) 59.5 BUN/Creatinine Ratio 46.0 Glucose Level 194 mg/dL Calcium Level 9.2 mg/dL Total Bilirubin 0.4 mg/dL Aspartate Amino Transf (AST/SGOT) 84 U/L Alanine Aminotransferase (ALT/SGPT) 96 U/L Alkaline Phosphatase 62 U/L Total Protein 6.9 g/dL Albumin 2.8 g/dL Globulin 4.1 Albumin/Globulin Ratio 0.682 Differential Total Cells Counted 100 #CELLS Segmented Neutrophils 81 % Band Neutrophils 2 % Lymphocytes 9 % Monocytes 5 % Metamyelocytes 1 % Myelocytes 1 % Toxic Granulation 1+ Platelet Estimate ADEQUATE Platelet Morphology NORMAL Blood Morphology Comment NORMAL MORPHOLOGY Bedside Glucose 178 173 Test 06/07/20 19:50 06/08/20 04:35 06/08/20 05:47 06/08/20 07:03 Bedside Glucose 260 163 White Blood Count 16.3 10^3/uL Red Blood Count 4.42 10^6/uL Hemoglobin 13.2 g/dL Hematocrit 38.3 % Mean Corpuscular Volume 86.7 fL Mean Corpuscular Hemoglobin 29.9 pg Mean Corpuscular Hemoglobin Concent 34.5 g/dL Red Cell Distribution Width 12.7 % Platelet Count 402 10^3/uL Mean Platelet Volume 9.8 fL Neutrophils (%) (Auto) 87.2 % Lymphocytes (%) (Auto) 3.7 % Monocytes (%) (Auto) 4.7 % Neutrophils # (Auto) 14.2 10^3/uL Lymphocytes # (Auto) 0.60 10^3/uL1 Monocytes # (Auto) 0.8 10^3/uL Absolute Immature Granulocyte (auto 0.70 10^3 u/L Absolute Eosinophils (auto) 0.0 10^3/uL Immature Granulocytes % 4.30 % Eosinophils % 0.0 % Basophils % 0.1 % Basophils # 0.0 10^3/uL Sodium Level 141 mmol/L Potassium Level 3.7 mmol/L Chloride Level 104.0 mmol/L Carbon Dioxide Level 28.4 mmol/L Anion Gap 12.3 Blood Urea Nitrogen 42 mg/dL Creatinine 0.98 mg/dL Estimated GFR () 70.3 Est GFR (CKD-EPI)(Non-Afr Turkmen) 58.1 BUN/Creatinine Ratio 42.0 Glucose Level 192 mg/dL Calcium Level 9.1 mg/dL Total Bilirubin 0.4 mg/dL Aspartate Amino Transf (AST/SGOT) 37 U/L Alanine Aminotransferase (ALT/SGPT) 78 U/L Alkaline Phosphatase 55 U/L Total Protein 6.4 g/dL Albumin 2.6 g/dL Globulin 3.8 Albumin/Globulin Ratio 0.684 Differential Total Cells Counted 100 #CELLS Segmented Neutrophils 88 % Band Neutrophils 1 % Lymphocytes 3 % Monocytes 7 % Metamyelocytes 1 % Platelet Estimate INCREASED Platelet Morphology NORMAL Blood Morphology Comment NORMAL MORPHOLOGY Test 06/08/20 08:05 Bedside Glucose 175 Current Medications Medications (Trade) Dose Ordered Sig/Stas PRN Reason Start Time Stop Time Status Last Admin Acetaminophen (Tylenol) 1,000 mg Q6H PRN PAIN 1 - 3 06/05/20 15:30 07/05/20 15:29 06/07/20 20:32 Ascorbic Acid (Vitamin C) 500 mg BID 06/05/20 21:00 07/05/20 20:59 06/08/20 09:49 Azithromycin 500 mg/Sodium Chloride 250 ml @ 175 mls/hr Q24HRS 06/05/20 20:00 07/05/20 19:59 06/07/20 20:30 Ceftriaxone Sodium 1000 mg/ Sodium Chloride 100 ml @ 100 mls/hr Q24HRS 06/06/20 13:00 07/06/20 12:59 06/07/20 12:56 Dextrose (Dextrose 50%-Water Syringe) 25 ml STAT PRN HYPOGLYCEMIA 06/05/20 15:30 07/05/20 15:29 Enoxaparin Sodium (Lovenox) 40 mg Q24HRS 06/08/20 12:30 07/08/20 12:29 06/08/20 12:26 Famotidine (Pepcid) 20 mg BID 06/05/20 21:00 07/05/20 20:59 06/08/20 09:49 Furosemide (Lasix) 20 mg STAT 06/05/20 16:00 07/05/20 15:59 06/05/20 22:09 Gabapentin (Neurontin) 600 mg BID 06/05/20 21:00 07/05/20 20:59 06/08/20 09:50 Guaifenesin (Mucinex) 1,200 mg BID 06/05/20 21:00 07/05/20 20:59 06/08/20 09:50 Hydrochlorothiazide (Hydrochlorothiazide) 12.5 mg DAILY 06/06/20 09:00 07/06/20 08:59 06/07/20 09:29 Insulin Glargine (Lantus) 10 unit HS 06/05/20 21:00 07/05/20 20:59 06/07/20 20:08 Insulin Human Lispro (Humalog) 0-140 0 Units 141-200... ACHS 06/05/20 17:30 07/05/20 17:29 06/08/20 11:30 Losartan Potassium (Cozaar) 100 mg DAILY 06/06/20 09:00 07/06/20 08:59 06/07/20 09:29 Morphine Sulfate (Morphine Sulfate) 2 mg Q4H PRN PAIN 7 - 10 06/05/20 15:30 07/05/20 15:29 Remdesivir 100 mg/ Sodium Chloride 120 ml @ 111.111 mls/hr Q24HRS 06/06/20 15:00 06/09/20 16:05 06/07/20 15:11 Zolpidem Tartrate (Ambien) 5 mg HS PRN INSOMNIA 06/05/20 15:30 07/05/20 15:29 06/07/20 20:32 LEVEL 1 SEPSIS INFECTION CRITE: ABX Therapy, Cough/Shortness of Breath LEVEL 2-SIRS (LIST ALL THAT AP: None/Not assessed Cardiovascular Evidence: Not Assessed or None Hematologic Evidence: None/Not assessed Hepatic Evidence: None/Not assessed Metabolic Evidence: None/Not assessed Neurological Evidence: None/Not assessed Respiratory Evidence: Need for O2 to keep>90%, O2 SAT<90room air Renal Evidence: None/Not assessed O2 Sat by Pulse Oximetry: 96 Oxygen Flow Rate: 2.00 Problem Qualifiers (1) Pneumonia: Pneumonia type: due to unspecified organism Laterality: bilateral Lung location: unspecified part of lung Qualified Codes: J18.9 - Pneumonia, unspecified organism DAVID HITCHCOCK MD Jun 18, 2020 15:22
--- NOTE | 2020-06-18 15:39 | NUR ---
SCRIPTS CALLED INTO [facility] AT THIS TIME.
[2020-06-18 18:00] VITALS: BP 96/57
--- NOTE | 2020-06-18 18:02 | NUR ---
Discharge: Pt discharged to home at 1730 via private transportation from son. Vital signs stable on 2lpm via SD. Discharge instructions and medications reviewed with patient, all questions answered. Pt educated on need to monitor spo2 at home as well as blood pressure. Pt verbalized her understanding.
== END 2020-06-18 17:30 | disposition home or self-care (01) | DRG 177 ==
LOC: ER 12:10 → EDBD 12:10 → EDUNIT# 12:10 → MS 14:36
PROVIDERS: ADMIT Family Medicine; ATTEND Internal Medicine
PROC: XW033E5 Introduction of Remdesivir Anti-infective into Peripheral Vein, Percutaneous Approach, New Technology Group 5 (ICD-10-PCS; principal; 2020-06-05)
PROC: XW13325 Transfusion of Convalescent Plasma (Nonautologous) into Peripheral Vein, Percutaneous Approach, New Technology Group 5 (ICD-10-PCS; 2020-06-06)
DX: U07.1 COVID-19 (principal); J12.89 Other viral pneumonia; J96.01 Acute respiratory failure with hypoxia; Z66 Do not resuscitate; E11.65 Type 2 diabetes mellitus with hyperglycemia; G89.29 Other chronic pain; I10 Essential (primary) hypertension; Z79.01 Long term (current) use of anticoagulants; Z99.81 Dependence on supplemental oxygen; Z86.19 Personal history of other infectious and parasitic diseases; Z79.899 Other long term (current) drug therapy; Z90.49 Acquired absence of other specified parts of digestive tract
CPT/HCPCS: 36415; 36569; 36600; 71045; 80053; 82550; 82553; 82728; 82803; 82948; 83605; 83735; 83880; 84145; 84484; 85025; 85379; 85610; 85730; 86140; 86900; 87040; 87070; 87205; 93005; 93306; 99285; G0378; J0456; J0696; J1100; J1650; J2060; J3490; J7040; J7050; P9017; J1940

== ENCOUNTER → 2020-07-17 | Outpatient (CLI) | payer BC ==
[~2020-07-17] MED LIST changes: +APIX5TAB PO; +ASCO500T5 PO; +FAMO20TA5 PO; +GUAI600T31 PO; +INSU100V8 SQ
--- NOTE | 2020-07-17 11:17 | DIREP ---
PROCEDURE:CHEST 2 VIEWS COMPARISON:[facility], CR, XRAY CHEST SINGLE VW, 06/05/2020, 01:42 PM. INDICATIONS:U07.1 COVID-19, NOT ACTIVE F/U FINDINGS: LUNGS/PLEURA:Faint increased reticulonodular markings both mid and lower lungs, September improved as compared with June 05, 2020. No effusions. VASCULATURE:Normal. Unremarkable pulmonary vasculature. CARDIAC:Normal. No cardiac silhouette abnormality or cardiomegaly. MEDIASTINUM:Normal. No visible mass or adenopathy. BONES:Normal. No fracture or visible bony lesion. OTHER:Negative. CONCLUSION: Faint infiltrates both mid and lower lungs, much improved as compared with June 05, 2020. Dictated by: Toney Tapia III, MD on 07/17/2020 at 11:14 AM
== END | disposition home or self-care (01) ==
LOC: RAD 10:05
PROVIDERS: ATTEND Internal Medicine
DX: U07.1 COVID-19 (principal)
CPT/HCPCS: 71046

== ENCOUNTER → 2020-11-10 | Outpatient (CLI) | payer BC ==
[2020-11-10 18:29] LABS: CALCIUM 9.4 mg/dL (8.4-10.5); CARBON DIOXIDE 29.2 mmol/L (20.0-32)
== END | disposition home or self-care (01) ==
LOC: NPLAB 17:56
PROVIDERS: ATTEND Internal Medicine
DX: E11.9 Type 2 diabetes mellitus without complications (principal)
CPT/HCPCS: 36415; 80053; 80061; 83036

== ENCOUNTER → 2021-07-23 | Outpatient (CLI) | payer BC | END | disposition home or self-care (01) | LOC: NPLAB 11:18 | PROVIDERS: ATTEND Internal Medicine | DX: U07.1 COVID-19 (principal) | CPT/HCPCS: 87426 ==

== ENCOUNTER → 2022-01-26 | Outpatient (CLI) | payer BC | END | disposition home or self-care (01) | LOC: NPLAB 14:54 | PROVIDERS: ATTEND Nurse Practitioner Family | DX: Z20.822 Contact with and (suspected) exposure to COVID-19 (principal) | CPT/HCPCS: 87426 ==